=== PATIENT | male | born 1945 | race Caucasian/White ===

== ENCOUNTER 2016-06-13 09:35 | Inpatient (IN) | payer MEDICARE, OTHER ==
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
[2016-06-13] VITALS (19 sets, daily range): BP systolic 109–160; BP diastolic 68–89; PULSE 67–117; RESP 16–25; Ht 152.4 cm; Wt 84.0 kg
[~2016-06-13] VITALS: Ht 152.4 cm; Wt 84.0 kg
[~2016-06-13 09:35] MED LIST: ALBUMIN HUMAN 5% 250 ML INJ ONE
[2016-06-13] MEDS ORDERED: LACTATED RINGER'S 1,000 ML IV* ONE (10:30)
[2016-06-13] MEDS ORDERED: VANCOMYCIN 1 GM in NS 250 ML IVPB ONE (10:30)
[2016-06-13] MEDS ORDERED: LISI10TA2 PO (10:42)
[2016-06-13] MEDS ORDERED: MORP15TA92 PO (10:42)
[2016-06-13] MEDS ORDERED: LITH300T5 PO (10:42)
[2016-06-13] MEDS ORDERED: PROPOFOL 20 ML ONE ×2 (10:48→10:52)
[2016-06-13] MEDS ORDERED: ONDANSETRON 4 MG INJ ONE (10:49)
[2016-06-13] MEDS ORDERED: NEOSTIGMINE 3 MG/3 ML SYRINGE ONE (10:49)
[2016-06-13] MEDS ORDERED: CEFAZOLIN 1 GM INJ ONE (10:49)
[2016-06-13] MEDS ORDERED: GLYCOPYRROLATE 0.4 MG INJ ONE (10:49)
[2016-06-13] MEDS ORDERED: ROCURONIUM 50 MG INJ ONE (10:49)
[2016-06-13] MEDS ORDERED: MIDAZOLAM 1 MG/ML 2 ML INJ ONE (10:49)
[2016-06-13] MEDS ORDERED: DEXAMETHASONE 4 MG/ML 1 ML INJ ONE (10:49)
[2016-06-13] MEDS ORDERED: hydrALAzine 20 MG INJ ONE ×2 (10:57→13:30)
--- NOTE | 2016-06-13 11:48 | OPPN ---
DALTON CHRISTIAN 06/13/16 1148: Date/Time of Note Date/Time of Note DATE: 06/13/16 TIME: 11:42 Anesthesia Eval and Record Evaluation Age 70 Sex male NPO: 8 hrs Took Morphine with sips of water this morning Preoperative diagnosis Lumbar spine stenosis Planned procedure L2-5 decompression, Lumbar laminectomy Past Medical History Cardio: HTN Neuro: Other (Bipola raffective disorder) Musculoskeletal: Osteoarthritis (fingers and bones) Pulm: Smoking Hx (smokes marijuana daily. [place] [employer] 15 years ago ), Sleep Apnea ( states he stops breathing for about five seconds, no formal diagnosis ) Hepatic: Alcohol abuse (history sober for 29 years), Hepatitis (C treated three years ago ) GI: GERD Surgery & Anesthesia Issues Other issues (wakes up very combative after anesthesia ) Meds Anticoagulation: No Beta Mimi within 24 hr: No Reason Beta Mimi not given: Pt. not on B-Mimi Reported Medications Lisinopril* (Lisinopril*) 10 Mg Tablet, 10 MG PO DAILY, #30 TAB 06/13/16 Morphine Sulfate* (Ms Contin*) 15 Mg Tablet.sa, 45 MG PO Q8, TAB.SA 06/13/16 [place] Carbonate* ([place] Carbonate*) 300 Mg Tablet, 600 MG PO QHS, TAB 06/13/16 Allergies Coded Allergies: alfuzosin (Verified Allergy, Mild, 06/13/16) amitriptyline (Verified Allergy, Mild, 06/13/16) tamsulosin (Verified Allergy, Mild, 06/13/16) Penicillins (Verified Allergy, Unknown, 06/10/16) Sulfa (Sulfonamide Antibiotics) (Verified Allergy, Unknown, 06/10/16) ciprofloxacin (Verified Allergy, Unknown, 06/10/16) levofloxacin (Verified Allergy, Unknown, 06/10/16) tetanus immune globulin (Verified Allergy, Unknown, 06/10/16) tetanus toxoid, adsorbed (Verified Allergy, Unknown, 06/10/16) Labs/Studies Reviewed by anesthesiologist Test: N/A Studies: ECG (sinue rythmn hr 68), CXR (negative- ) Pre-procedure Exam Last vitals Vital Signs Date Time Temp Pulse Resp B/P Pulse Ox O2 Delivery O2 Flow Rate FiO2 06/13/16 10:48 98.5 67 18 147/85 98 Airway: Adequate mouth opening, Adequate thyromental dist Mallampati Score: Mallampati I Teeth: Abnormal (full upper denture and partial lower) Lung: Normal Heart: Normal ASA Physical Status ASA physical status: 3 Planned Anesthetic General/MAC: ETT Planned Pain Management Parenteral pain med Pre-operative Attestations Prior to commencing anesthesia and surgery, the patient was re-evaluated, there was verification of: *The patient's identity *The results of appropriate recent lab work and preoperative vital signs *The above evaluation not changing prior to induction *Anesthetic plan, risk benefits, alternative and complications discussed with patient/family; questions answered; patient/family understands, accepts and wishes to proceed. Bryant Mckeon M.D. 06/13/16 1358: Anesthesia Eval and Record Evaluation NPO: 8 hrs Meds Reported Medications Lisinopril* (Lisinopril*) 10 Mg Tablet, 10 MG PO DAILY, #30 TAB 06/13/16 Morphine Sulfate* (Ms Contin*) 15 Mg Tablet.sa, 45 MG PO Q8, TAB.SA 06/13/16 [place] Carbonate* ([place] Carbonate*) 300 Mg Tablet, 600 MG PO QHS, TAB 06/13/16 Allergies Coded Allergies: alfuzosin (Verified Allergy, Mild, 06/13/16) amitriptyline (Verified Allergy, Mild, 06/13/16) tamsulosin (Verified Allergy, Mild, 06/13/16) Penicillins (Verified Allergy, Unknown, 06/10/16) Sulfa (Sulfonamide Antibiotics) (Verified Allergy, Unknown, 06/10/16) ciprofloxacin (Verified Allergy, Unknown, 06/10/16) levofloxacin (Verified Allergy, Unknown, 06/10/16) tetanus immune globulin (Verified Allergy, Unknown, 06/10/16) tetanus toxoid, adsorbed (Verified Allergy, Unknown, 06/10/16) DALTON CHRISTIAN Jun 13, 2016 11:48 Bryant Mckeon M.D. Jun 13, 2016 13:58 tetanus toxoid, adsorbed (Verified Allergy, Unknown, 06/10/16) DALTON CHRISTIAN Jun 13, 2016 11:48 Bryant Mckeon M.D. Jun 13, 2016 13:58
[2016-06-13] MEDS ORDERED: GELATIN SIZE 100 SPONGE ONE (12:05)
[2016-06-13] MEDS ORDERED: BUPIVACAINE 0.25% (MPF) 10 ML 10 ML VIAL ONE (12:06)
[2016-06-13] MEDS ORDERED: THROMBIN 5000 UNIT VIAL ONE ×3 (12:06→14:42)
[2016-06-13] MEDS ORDERED: POLYMYXIN/BACITRACIN 1L IRRIG ONE (12:06)
--- NOTE | 2016-06-13 12:12 | HPN ---
Date/Time of Note Date/Time of Note DATE: 06/13/16 TIME: 12:11 Interval H&P Admission Note Pt. seen H&P reviewed: No system changes MARU DOE MD Jun 13, 2016 12:12
[2016-06-13] MEDS ORDERED: LABETALOL HCL 20MG INJ ONE (12:58)
--- NOTE | 2016-06-13 13:52 | RADRPT ---
PROCEDURE: XR Lumbar Spine one view. CLINICAL INDICATION: Low back pain. Intraoperative. TECHNIQUE: Prone portable cross-table lateral. COMPARISON: No prior studies are available for comparison. FINDINGS: For the purposes of this report, the last apparent true disc level is considered to be L5-S1. Based on this, the posterior needle markers are present at mid L1 level and lower L4 left. IMPRESSION: 1. Intraoperative imaging as described above. RPTAT: QQ .Homero Calzada MD, MD Date Time Electronically viewed and signed by .Homero Calzada MD, MD on 06/13/2016 13:51 .R/
--- NOTE | 2016-06-13 13:52 | RADRPT ---
PROCEDURE: XR Lumbar Spine one view. CLINICAL INDICATION: Low back pain. Intraoperative. TECHNIQUE: Prone portable cross-table lateral. COMPARISON: No prior studies are available for comparison. FINDINGS: For the purposes of this report, the last apparent true disc level is considered to be L5-S1. Based on this, the posterior surgical instruments are present at L2 spinous process level and upper L5 sp inous process level. IMPRESSION: 1. Intraoperative imaging as described above. RPTAT: QQ .Homero Calzada MD, Date Time Electronically viewed and signed by .Homero Calzada MD, on 06/13/2016 13:52 .R/
[2016-06-13] MEDS ORDERED: MIDAZOLAM 1 MG/ML 2 ML INJ IV PRN (14:00)
[2016-06-13] MEDS ORDERED: EPHEDrine SULFATE 50 MG/5 ML SYG IV PRN (14:00)
[2016-06-13] MEDS ORDERED: TRIMETHOBENZAMIDE 100 MG/ML VIAL IM PRN ×3 (14:00→17:30)
[2016-06-13] MEDS ORDERED: hydrALAzine 20 MG INJ IV PRN (14:00)
[2016-06-13] MEDS ORDERED: MEPERIDINE 25 MG INJ IV PRN (14:00)
[2016-06-13] MEDS ORDERED: HYDROmorphONE (0.2 MG/ML) 10ML SYG IV PRN ×3 (14:00)
[2016-06-13] MEDS ORDERED: FENTAnyl 50 MCG/ML VIAL IV PRN ×3 (14:00)
[2016-06-13] MEDS ORDERED: DIPHENHYDRAMINE 50 MG INJ IV PRN ×2 (14:00→17:30)
[2016-06-13] MEDS ORDERED: LABETALOL HCL 20MG INJ IV PRN (14:00)
[2016-06-13] MEDS ORDERED: ONDANSETRON 4 MG INJ IV PRN ×2 (14:00→17:30)
[2016-06-13] MEDS ORDERED: SURGIFOAM POWDER 1 GM KIT ONE (14:42)
[2016-06-13] MEDS ORDERED: DESMOPRESSIN 25 MCG in SOD CHLORIDE 0.9% 50 ML IV ONE (15:00)
--- NOTE | 2016-06-13 16:51 | OPR ---
Date/Time of Note Date/Time of Note DATE: 06/13/16 TIME: 16:46 Operative Report Preoperative Diagnosis Multilevel spinal stenosis from L1-L5 Postsurgical changes at L3 Herniated disc L2-3 on the left with extruded fragments above the disc level Possible discitis L2-3 Postoperative Diagnosis Same Operation Performed Redo decompressive laminectomy at L1 through L5 Microdiscectomy L2-3 on the left Multiple intraoperative wound cultures Revision of scar (20 cm) Lateral localizing lumbar radiographs (2) Intraoperative nerve monitoring (3 hours) Surgeon: MARU DOE MD assistant manager/embalmer: PATRICIA GALAVIZ MD Anesthesia: general Anesthesiologist: Bryant Mckeon M.D. Estimated Blood Loss: other Specimens Spinous processes of L1-L2 L4 and L5 Herniated disc L2-3 on the left Tubes/Drains 2 medium Hemovac drains employed Complications: None Pt Condition Post Procedure: stable Disposition: PACU Operative\Procedure Findings At surgery, there was diffuse and generalized bleeding resulting in a overall blood loss of 1500 cc. Multilevel severe spinal stenosis was evident with severe scarring at L3 the patient underwent previous surgery. MARU DOE MD Jun 13, 2016 16:51
[2016-06-13] MEDS ORDERED: DIAZEPAM 5 MG/ML SYG IM PRN (17:00)
[2016-06-13] MEDS ORDERED: DIPHENHYDRAMINE 50 MG CAP PO PRN (17:00)
[2016-06-13] MEDS ORDERED: ZOLPIDEM 5 MG TAB PO PRN ×2 (17:00→17:30)
[2016-06-13] MEDS ORDERED: ACETAMINOPHEN 325 MG TAB PO PRN (17:00)
[2016-06-13] MEDS ORDERED: NALOXONE (0.4 MG/ML) INJ IV PRN ×2 (17:00→17:30)
[2016-06-13] MEDS ORDERED: NACL 0.9% 3 ML SYG IV SCH (17:00)
[2016-06-13] MEDS ORDERED: DIAZEPAM 5 MG TAB PO PRN (17:00)
[2016-06-13] MEDS ORDERED: BETHANECHOL 25 MG TAB PO PRN (17:00)
[2016-06-13] MEDS ORDERED: PROCHLORPERAZINE 10 MG TAB PO PRN (17:00)
[2016-06-13] MEDS ORDERED: HYDROmorphONE 0.2 MG/ML PCA IV SCH (17:00)
[2016-06-13] MEDS ORDERED: HYDROCODONE/APAP (5/325) TAB PO PRN ×2 (17:00)
[2016-06-13] MEDS ORDERED: HYDROmorphONE 1 MG/ML SYG IV STA (17:01)
[2016-06-13 17:05] LABS: ADD UMIC YES; URINE BILIRUBIN (Dip) NEGATIVE (NEGATIVE); URINE BLOOD (Dip) 2+ (NEGATIVE); URINE COLOR LT. YELLOW (YELLOW); URINE GLUCOSE (Dip) NEGATIVE (NEGATIVE); URINE KETONES (Dip) NEGATIVE (NEGATIVE); URINE LEUKOCYTE ESTERASE (Dip) NEGATIVE (NEGATIVE); URINE NITRITE (Dip) NEGATIVE (NEGATIVE); URINE TOTAL PROTEIN (Dip) NEGATIVE (NEGATIVE); URINE UROBILINOGEN (Dip) 0.2 E.U./dL (0.1-1.0)
[2016-06-13 17:22] LABS: BACTERIA,URINE FEW
--- NOTE | 2016-06-13 17:28 | CONS ---
Date/Time of Note Date/Time of Note DATE: 06/13/16 TIME: 17:25 Assessment/Plan Assessment/Plan Problems: (1) Status post lumbar spine surgery for decompression of spinal cord Status: Acute Comment: Patient is immediately postop and doing relatively well. He is moving his lower extremities. He has multiple complaints including that he is thirsty. (2) Bipolar affective disorder Status: Chronic Comment: Noted are relatively stable continue his medications. Qualifiers: Active/Remission status: in partial remission Most recent bipolar episode type: hypomanic Qualified Code: F31.71 - Bipolar disorder, in partial remission, most recent episode hypomanic (3) Essential hypertension Status: Chronic Comment: Continue outpatient regimen Consultation Date/Type/Reason Admit Date/Time Jun 13, 2016 at 09:35 Initial Consult Date June 13, 2016 Type of Consultation: Internal medicine Reason for Consultation Postop assistance Referring Provider: MARU DOE MD 24 HR Interval Summary Free Text/Dictation Patient seen in the recovery room. He reports he feels thirsty. Constitutional: no complaints (Denies any fevers chills or sweats) Detailed Summary Eyes: no complaints Respiratory: no complaints (Denies any shortness of breath) Cardiovascular: no complaints (Denies chest pain) Gastrointestinal: no complaints Genitourinary: no complaints Exam/Review of Systems Vital Signs Vitals Vital Signs Date Time Temp Pulse Resp B/P Pulse Ox O2 Delivery O2 Flow Rate FiO2 06/13/16 16:59 92 18 138/84 97 Nasal Cannula 2.0 06/13/16 16:56 97.5 Exam Constitutional: alert, oriented (Oriented to person place and time) Neck: non-tender, supple Respiratory: clear to auscultation, normal air movement Cardiovascular: nl pulses, regular rate and rhythm Results Results 24 hrs Laboratory Tests Test 06/13/16 16:30 Urine Color LT. YELLOW Urine Clarity CLEAR Urine pH 6.5 Urine Specific [place] 1.010 Urine Ketones NEGATIVE Urine Nitrite NEGATIVE Urine Bilirubin NEGATIVE Urine Urobilinogen 0.2 E.U./dL Urine Leukocyte Esterase NEGATIVE Urine Microscopic RBC 10-25 Urine Microscopic WBC 0-2 Urine Epithelial Cells FEW Urine Bacteria FEW Urine Hemoglobin 2+ H Urine Glucose NEGATIVE Urine Total Protein NEGATIVE Medications Medications Current Medications Dextrose/Sodium Chloride (D5-1/2ns) 1,000 ml @ 100 mls/hr Q10H IV ; Start at 16:31 Acetaminophen/ Hydrocodone Bitart ([place] (5/325)) 1 tab Q4H PRN PO PAIN LEVEL 1 -5; Start 06/13/16 at 17:00 Acetaminophen/ Hydrocodone Bitart 2 tab 2 tab Q4H PRN PO PAIN LEVEL 6-10; Start 06/13/16 at 17:00 Vancomycin HCl (Vancocin) 250 ml @ 125 mls/hr Q12H IVPB ; Start 06/13/16 at 23: 00; Stop 06/14/16 at 12:59 Zolpidem Tartrate (Ambien) 5 mg HS PRN PO INSOMNIA; Start 06/13/16 at 17:00 Prochlorperazine (Compazine) 10 mg Q4H PRN PO NAUSEA AND/OR VOMITING; Start 06/13/16 at 17:00 Trimethobenzamide HCl (Tigan) 200 mg Q4H PRN IM NAUSEA AND/OR VOMITING; Start 06/13/16 at 17:00 Ondansetron HCl (Zofran Inj) 4 mg Q6H PRN IV NAUSEA AND/OR VOMITING; Start 06/13 at 17:00 Al Hydrox/Mg Hydrox/Simethicone (Mag-Al Plus) 15 ml Q4H PRN PO CONSTIPATION; Start 06/13/16 at 17:00 Docusate Sodium (Colace) 100 mg BID PO ; Start 06/14/16 at 09:00 Acetaminophen (Tylenol Tab) 650 mg Q4H PRN PO TEMP GREATER THAN 101F OR LYN; Start 06/13/16 at 17:00 Ascorbic Acid (Vitamin C) 1,000 mg BID PO ; Start 06/14/16 at 09:00 Ferrous Sulfate (Ferrous Sulfate (Ec)) 325 mg TID PO ; Start 06/14/16 at 09:00 Ranitidine HCl (Zantac) 150 mg BID PO ; Start 06/13/16 at 21:00 Diazepam (Valium) 5 mg Q4H PRN PO MUSCLE SPASMS; Start 06/13/16 at 17:00 Diazepam (Valium) 5 mg Q4H PRN IM MUSCLE SPASMS; Start 06/13/16 at 17:00 Phenol (Cepastat Lozenge) 1 lozenge PRN PRN MT SORE THROAT; Start 06/13/16 at 17 :00 Bethanechol Chloride (Urecholine) 25 mg PRN PRN PO UNABLE TO VOID; Start at 17:00 Diphenhydramine HCl (Benadryl) 50 mg Q6H PRN PO PRURITUS; Start 06/13/16 at 17: 00 Naloxone HCl (Narcan) 0.2 mg Q2M PRN IV RR 8 BREATHS/MIN OR LESS; Start at 17:00 Fentanyl (Sublimaze) 50 mcg ONCE ONCE IV Last administered on 06/13/16t 17:08; Admin Dose 50 MCG; Start 06/13/16 at 17:30; Stop 06/13/16 at 17:31 Lisinopril (Zestril) 10 mg DAILY PO ; Start 06/14/16 at 09:00; Status UNV [place] Carbonate ([place] Carbonate) 600 mg QHS PO ; Start 06/13/16 at 21:00; Status UNV Naloxone HCl (Narcan) 0.2 mg PRN PRN IV DECREASED REPIRATORY RATE; Start at 17:30; Status UNV Hydromorphone HCl (Dilaudid STOCK UNLOADER) Q4PCA IV ; Start 06/13/16 at 17:30; Status UNV Oxycodone/ Acetaminophen (Percocet (5/ 325)) 1 tab Q4H PRN PO PAIN LEVEL 1-5; Start 06/13/16 at 17:30; Status UNV Oxycodone/ Acetaminophen (Percocet (5/ 325)) 2 tab Q4H PRN PO PAIN LEVEL 6-10; Start 06/13/16 at 17:30; Status UNV Hydromorphone HCl (Dilaudid) 0.2 mg Q4H PRN IV PAIN LEVEL 1-5; Start 06/13/16 at 17:30; Status UNV Hydromorphone HCl (Dilaudid) 0.4 mg Q4H PRN IV PAIN LEVEL 6-10; Start 06/13/16 at 17:30; Status UNV Ondansetron HCl (Zofran Inj) 4 mg Q6H PRN IV NAUSEA AND/OR VOMITING; Start 06/13 at 17:30; Status UNV Trimethobenzamide HCl (Tigan) 200 mg Q8H PRN IM NAUSEA AND/OR VOMITING; Start 06/13/16 at 17:30; Status UNV Diphenhydramine HCl (Benadryl) 25 mg Q6H PRN IV ITCHING; Start 06/13/16 at 17:30 ; Status UNV Miscellaneous Information 1. Discontinue STOCK UNLOADER... STOCK UNLOADER IV ; Start 06/13/16 at 17:30 ; Status UNV Miscellaneous Information 1. Discontinue STOCK UNLOADER... STOCK UNLOADER IV ; Start 06/13/16 at 17:30 ; Status UNV TARAN WANG MD Jun 13, 2016 17:28
[2016-06-13] MEDS ORDERED: HYDROmorphONE 1 MG/ML SYG IV PRN ×2 (17:30)
[2016-06-13] MEDS ORDERED: FENTAnyl 50 MCG/ML VIAL IV ONE (17:30)
[2016-06-13] MEDS: HYDROmorphONE 0.2 MG/ML PCA IV SCH ×2 (17:35→22:48)
[2016-06-13] MEDS: DEXTROSE 5%-0.45% NACL 1,000 ML IV SCH (18:18)
--- NOTE | 2016-06-13 20:04 | OPR ---
DATE OF OPERATION: 06/13/2016 PREOPERATIVE DIAGNOSES: 1. Multilevel spinal stenosis (severe) from L1-L5. 2. Postsurgical changes at L3. 3. Herniated disk L2-3 on the left, with extruded fragments above the disk level. 4. Probable diskitis at L2. POSTOPERATIVE DIAGNOSES: 1. Multilevel spinal stenosis (severe) from L1-L5. 2. Post-surgical changes at L3. 3. Herniated disk L2-3 on the left, with extruded fragments above the disk level. 4. Probable diskitis at L2. OPERATION/PROCEDURES: 1. Redo decompressive laminectomy at L1, L2, L3, L4, and L5. 2. Microdiskectomy L2-3 on the left. 3. Multiple intraoperative cultures. 4. Revision of scar (20 cm). 5. Lateral localizing lumbar radiographs used (2). 6. Intraoperative nerve monitoring (3 hours). SURGEON: Eugenio Rader MD WASTEWATER SUPERINTENDENT: Patricia Cary MD ANESTHESIA: General endotracheal. ANESTHESIOLOGIST: Bryant Mckeon MD ESTIMATED BLOOD LOSS: 1500 mL Two units packed cells given COMPLICATIONS: None. DRAINS: Two medium Hemovac drains employed. PERTINENT HISTORY AND PHYSICAL: This is a 70-year-old male with severe back and lower-extremity complaints, left greater than right, which have been refractory to conservative management. He underwent lumbar surgery in [place] several months ago, but has had severe pain in his back and lower extremities since that time. His postoperative workup including MRI of the lumbar spine demonstrated multilevel severe spinal stenosis and suspected diskitis of the L2- 3 disk. There was also an extruded disk herniation at L2-3 on the left, with extruded disk material below the level of disk space. Treatment options were discussed with the patient, who elected to proceed with surgery. OPERATIVE FINDINGS: At surgery, there was multilevel severe spinal stenosis from L1-L5. There were dense scar at L3 and a herniation of the L2-3 disk on the left, with extruded fragments above the disk level. Although no sharla pus was identified, there was some granulation tissue that was suspicious for infection, and multiple cultures were sent. OPERATIVE PROCEDURE: With the patient in supine position, after satisfactory induction of general endotracheal anesthesia by Dr. Mckeon, the patient was turned to the prone kneeling position on the [place] frame. All pressure points were carefully padded. Back was prepped and draped in usual sterile fashion. Athrombic pumps were applied to the legs below the knees to prevent venous stasis during and after procedure. An indwelling Mahajan catheter was also placed preoperatively to facilitate bladder drainage during and after the procedure. Two spinal needles were placed next to what was felt to be the spinous process of L1 and L5, and lateral roentgenogram was taken, which confirmed anatomic localization. A 20 cm incision was then carried midline from L1 to the sacrum, through skin and subcutaneous tissue to the deep fascia. Superficial retractors were placed and hemostasis secured with electrocautery. Throughout the procedure, copious amounts of antibacterial irrigating solution were used to periodically irrigate the wound. From the beginning of the incision, it was noted that the patient had diffuse oozing from both soft tissues and bone, which necessitated the blood transfusion discussed above. The fascia was incised in midline with a hot knife, and a bilateral subperiosteal dissection carried out from L1-L5. Deep retractors were placed and deep hemostasis secured with electrocautery. A second intraoperative radiograph was taken with Andrew clamps placed with what was felt to be the spinous process of L2 and L5. This was confirmed with a second x -ray. Redo decompressive laminectomy at L5, L4, L3, L2, and L1 was then carried out using a Chiquis right-angle bone rongeur, Leksell rongeur, Kerrison punches, and curettes. Ligamentum flavum was excised with sharp dissection at those levels where it existed. The operating microscope was then moved into place. A medial facetectomy and foraminotomy was accomplished using small hand osteo mallet, Kerrison punches, and curettes. Attention was then turned to the L2-3 level on the left, where the L3 root was mobilized medially and protected with Roxy'Rasheeda nerve root retractor. A 15 blade knife used to cut a rectangular window in the annulus and posterior longitudinal ligament, and multiple degenerative disk fragments were harvested along with those fragments which had migrated superiorly above the level of disk space behind the body of L2. A thorough search of the floor of the canal was made with an arthroscopic probe. No additional fragments were encountered. The epidural hemostasis was secured with bipolar electrocautery on a low setting. The anesthesiologist was asked to perform a Valsalva maneuver at 40 mmHg and no spinal fluid leak was noted. The wound was copiously irrigated with antibacterial irrigating solution and then closed over 2 medium Hemovac drains; 1 below the fascia, 1 above the fascia using #1 Vicryl Stratafix sutures on the deep paralumbar musculature and deep fascia of back, 2-0 Vicryl Stratafix sutures on the subcutaneous tissue, and a 4-0 Vicryl subcuticular cosmetic closing suture on the skin. Dermabond and sterile compressive dressings were applied. Patient having tolerated the procedure well, was then turned to supine position onto his bed and extubated by Dr. Mckeon. He was transported to the recovery room in satisfactory condition. At the conclusion of the procedure, sponge, instrument, and needle counts were all correct. NEED FOR SIFTER OPERATOR: During this spinal surgical procedure, my religious assistant was used to retract and protect the spinal nerves and dural sac. My religious assistant also employed the suction catheters to evacuate blood from the surgical field to improve visualization of the neural structures. The religious assistant was medically necessary to facilitate the completion of the surgery in a safe and expeditious manner. State of [place] regulations, as well as hospital bylaws, preclude the use of non-licensed health care personnel such as operating room technicians, to perform these functions. Throughout the procedure, neural monitoring was carried out by [email or web address] including EMG, SSEP, and MEP monitoring of the L2, L3, L4, L5, and S1 nerve roots bilaterally, along with spinal cord potentials. These were interpreted by a neurologist employed by [employer]. Dictated By: EUGENIO RADER MD TM/NTS Conf#: [id number] DID#: [id number] CC: PATRICIA CARY MD; TARAN WANG MD;*EndCC* MTDD
[2016-06-13] MEDS: ONDANSETRON 4 MG INJ IV PRN (20:56)
[2016-06-13] MEDS ORDERED: LITHIUM CARBONATE 300 MG CAP PO SCH (21:00)
[2016-06-13] MEDS: CEPASTAT LOZENGE MT PRN (21:03)
[2016-06-13] MEDS: RANITIDINE 150 MG TAB PO SCH (21:03)
[2016-06-13] MEDS: LAMOTRIGINE 25 MG TAB PO SCH (21:26)
[2016-06-13] MEDS: VANCOMYCIN 1 GM (PMX) 250 ML IVPB SCH (22:28)
[2016-06-13] MEDS: LITHIUM CARBONATE 300 MG PO SCH (22:28)
[2016-06-14] VITALS: BP 134/79; RESP 16
[2016-06-14] MEDS: HYDROmorphONE 0.2 MG/ML PCA IV SCH (01:59)
[2016-06-14 05:35] LABS: HEMATOCRIT 27.7 % (42.0-52.0); HEMOGLOBIN 9.1 g/dl (14.0-18.0)
[2016-06-14 06:01] LABS: POTASSIUM 3.6 mmol/L (3.5-5.1)
[2016-06-14 06:03] LABS: CREATININE 0.92 mg/dl (0.61-1.24)
[2016-06-14 06:04] LABS: CALCIUM 8.6 mg/dl (8.4-10.2)
[2016-06-14 06:23] VITALS: BP 166/81; PULSE 96
[2016-06-14] MEDS: DEXTROSE 5%-0.45% NACL 1,000 ML IV SCH ×3 (06:24→21:13)
[2016-06-14] MEDS: LISINOPRIL 10 MG TAB PO SCH ×3 (06:32→09:58)
--- NOTE | 2016-06-14 07:18 | PN ---
Date/Time of Note Date/Time of Note DATE: 06/14/16 TIME: :17 Assessment/Plan Lines/Catheters IV Catheter Type (from Nrs): Peripheral IV Mahajan in Place (from Nrs): Yes Subjective 24 Hr Interval Summary The patient is postop day #1 following multilevel decompressive lumbar laminectomy from L1-L5. He is afebrile. His morning lab work is normal with exception of a mild postoperative anemia. I will check his blood work tomorrow. He will be mobilized with physical therapy as tolerated. His Hemovac had 350 cc since surgery. Neurovascular structures are intact distally. Exam/Review of Systems Vital Signs Vitals Vital Signs Date Time Temp Pulse Resp B/P Pulse Ox O2 Delivery O2 Flow Rate FiO2 06/14/16 06:23 97.3 96 166/81 95 Room Air 06/14/16 05:23 18 06/13/16 18:45 2.0 Intake and Output 06/13/16 06/13/16 06/14/16 15:00 23:00 07:00 Intake Total 2000 ml 750 ml 2750 ml Output Total 2950 ml 1800 ml Balance 2000 ml -2200 ml 950 ml Results Result Diagram: 06/14/16 0449 06/14/16 0449 MARU DOE MD Jun 14, 2016 07:18
[2016-06-14 07:57] VITALS: BP 164/76; RESP 18
[2016-06-14] MEDS ORDERED: BETHANECHOL 25 MG TAB PO PRN (08:00)
[2016-06-14] MEDS: RANITIDINE 150 MG TAB PO SCH ×2 (09:58→20:56)
[2016-06-14] MEDS: DOCUSATE SODIUM 100 MG CAP PO SCH ×2 (09:58→20:53)
[2016-06-14] MEDS: FERROUS SULFATE (EC) 325 MG TAB PO SCH ×3 (09:58→20:53)
[2016-06-14] MEDS: ASCORBIC ACID 500 MG TAB PO SCH ×2 (09:58→21:00)
[2016-06-14] MEDS ORDERED: morphine (ER) 15 MG TAB PO SCH ×2 (10:00→21:00)
[2016-06-14] MEDS: morphine (ER) 15 MG TAB PO SCH ×2 (10:00→10:01)
[2016-06-14 10:48] LABS: ADD UMIC YES; URINE BILIRUBIN (Dip) NEGATIVE (NEGATIVE); URINE BLOOD (Dip) 1+ (NEGATIVE); URINE COLOR LT. YELLOW (YELLOW); URINE GLUCOSE (Dip) NEGATIVE (NEGATIVE); URINE KETONES (Dip) NEGATIVE (NEGATIVE); URINE LEUKOCYTE ESTERASE (Dip) TRACE (NEGATIVE); URINE NITRITE (Dip) NEGATIVE (NEGATIVE); URINE TOTAL PROTEIN (Dip) NEGATIVE (NEGATIVE); URINE UROBILINOGEN (Dip) 0.2 E.U./dL (0.1-1.0)
[2016-06-14] MEDS: VANCOMYCIN 1 GM (PMX) 250 ML IVPB SCH (10:48)
[2016-06-14 11:34] LABS: BACTERIA,URINE RARE; URINE RBCS 0-2 /HPF (0)
--- NOTE | 2016-06-14 17:48 | PN ---
Date/Time of Note Date/Time of Note DATE: 06/14/16 TIME: 17:45 Assessment/Plan VTE Prophylaxis VTE Prophylaxis Intervention: SCD's Lines/Catheters IV [facility]from [facility] Saline Lock Urinary Cath still in place: Yes Reason Cath still needed: urinary retention Assessment/Plan Problems: (1) Discitis of lumbar region Status: Chronic Comment: Dr. Schmidt's operative note reports there is a possible discitis at L2. Multiple cultures were taken. I am going to go ahead and get blood cultures and continue the vancomycin that he had been on pending further details. Given the patient's fever nausea and vomiting will have to keep a close eye on this. (2) Status post lumbar spine surgery for decompression of spinal cord Status: Acute Comment: Postoperatively he appears to be doing relatively well although again I am concerned about an infection based on the dictation of Dr. Rader. (3) Bipolar affective disorder Status: Chronic Comment: He is on medication for this Qualifiers: Active/Remission status: in partial remission Most recent bipolar episode type: hypomanic Qualified Code: F31.71 - Bipolar disorder, in partial remission, most recent episode hypomanic (4) Essential hypertension Status: Chronic Comment: Adequate control Subjective 24 Hr Interval Summary Free Text/Dictation Patient reports he does not feel well has some diffuse nausea without emesis. He has a low-grade fever he reports he feels a little bit short of breath and has a runny nose Eyes: no complaints Cardiovascular: no complaints Genitourinary: no complaints Exam/Review of Systems Vital Signs Vitals Vital Signs Date Time Temp Pulse Resp B/P Pulse Ox O2 Delivery O2 Flow Rate FiO2 06/14/16 15:56 99.5 06/14/16 07:57 94 18 164/76 96 06/14/16 06:23 Room Air 06/13/16 18:45 2.0 Intake and Output 06/13/16 06/13/16 06/14/16 15:00 23:00 07:00 Intake Total 2000 ml 750 ml 2750 ml Output Total 2950 ml 1800 ml Balance 2000 ml -2200 ml 950 ml Exam Constitutional: alert, oriented Neck: non-tender, supple Respiratory: clear to auscultation, normal air movement Cardiovascular: nl pulses, regular rate and rhythm Results Result Diagram: 06/14/16 0449 06/14/16 0449 Results 24 hrs Laboratory Tests Test 06/14/16 04:49 06/14/16 10:05 Hemoglobin 9.1 L Hematocrit 27.7 L Sodium Level 135 Potassium Level 3.6 Chloride Level 104 Carbon Dioxide Level 21 Anion Gap 14 Blood Urea Nitrogen 13 Creatinine 0.92 Glucose Level 177 Calcium Level 8.6 Urine Color LT. YELLOW Urine Clarity CLEAR Urine pH 6.0 Urine Specific [place] 1.010 Urine Ketones NEGATIVE Urine Nitrite NEGATIVE Urine Bilirubin NEGATIVE Urine Urobilinogen 0.2 E.U./dL Urine Leukocyte Esterase TRACE H Urine Microscopic RBC 0-2 Urine Microscopic WBC 0-2 Urine Bacteria RARE Urine Hemoglobin 1+ H Urine Glucose NEGATIVE Urine Total Protein NEGATIVE Medications Medications Current Medications Dextrose/Sodium Chloride (D5-1/2ns) 1,000 ml @ 100 mls/hr Q10H IV Last administered on 06/14/16 06:24; Admin Dose 100 MLS/HR; Start 06/13/16 at 16:31 Acetaminophen/ Hydrocodone Bitart ([place] (5/325)) 1 tab Q4H PRN PO PAIN LEVEL 1 -5; Start 06/13/16 at 17:00 Acetaminophen/ Hydrocodone Bitart ([place] (5/325)) 2 tab Q4H PRN PO PAIN LEVEL 6 -10; Start 06/13/16 at 17:00 Zolpidem Tartrate (Ambien) 5 mg HS PRN PO INSOMNIA; Start 06/13/16 at 17:00 Prochlorperazine (Compazine) 10 mg Q4H PRN PO NAUSEA AND/OR VOMITING; Start 06/13/16 at 17:00 Trimethobenzamide HCl (Tigan) 200 mg Q4H PRN IM NAUSEA AND/OR VOMITING; Start 06/13/16 at 17:00 Ondansetron HCl (Zofran Inj) 4 mg Q6H PRN IV NAUSEA AND/OR VOMITING Last administered on 06/13/16 20:56; Admin Dose 4 MG; Start 06/13/16 at 17:00 Al Hydrox/Mg Hydrox/Simethicone (Mag-Al Plus) 15 ml Q4H PRN PO CONSTIPATION; Start 06/13/16 at 17:00 Docusate Sodium (Colace) 100 mg BID PO Last administered on 06/14/16 09:58; Admin Dose 100 MG; Start 06/14/16 at 09:00 Acetaminophen (Tylenol Tab) 650 mg Q4H PRN PO TEMP GREATER THAN 101F OR LYN; Start 06/13/16 at 17:00 Ascorbic Acid (Vitamin C) 1,000 mg BID PO Last administered on 06/14/16 09:58; Admin Dose 1,000 MG; Start 06/14/16 at 09:00 Ferrous Sulfate (Ferrous Sulfate (Ec)) 325 mg TID PO Last administered on 09:58; Admin Dose 325 MG; Start 06/14/16 at 09:00 Ranitidine HCl (Zantac) 150 mg BID PO Last administered on 06/14/16 09:58; Admin Dose 150 MG; Start 06/13/16 at 21:00 Diazepam (Valium) 5 mg Q4H PRN PO MUSCLE SPASMS; Start 06/13/16 at 17:00 Diazepam (Valium) 5 mg Q4H PRN IM MUSCLE SPASMS; Start 06/13/16 at 17:00 Phenol (Cepastat Lozenge) 1 lozenge PRN PRN MT SORE THROAT Last administered on 06/13/16 21:03; Admin Dose 1 LOZENGE; Start 06/13/16 at 17:00 Bethanechol Chloride (Urecholine) 25 mg PRN PRN PO UNABLE TO VOID Last administered on 06/14/16 09:58; Admin Dose 25 MG; Start 06/13/16 at 17:00 Diphenhydramine HCl (Benadryl) 50 mg Q6H PRN PO PRURITUS; Start 06/13/16 at 17: 00 Naloxone HCl (Narcan) 0.2 mg Q2M PRN IV RR 8 BREATHS/MIN OR LESS; Start at 17:00 Naloxone HCl (Narcan) 0.2 mg PRN PRN IV DECREASED REPIRATORY RATE; Start at 17:30 Hydromorphone HCl (Dilaudid AGRICULTURAL APPRAISER) Q4PCA IV Last administered on 06/14/16 01:59 ; Admin Dose 6 MG; Start 06/13/16 at 17:30 Oxycodone/ Acetaminophen (Percocet (5/ 325)) 1 tab Q4H PRN PO PAIN LEVEL 1-5; Start 06/13/16 at 17:30 Oxycodone/ Acetaminophen (Percocet (5/ 325)) 2 tab Q4H PRN PO PAIN LEVEL 6-10; Start 06/13/16 at 17:30 Hydromorphone HCl (Dilaudid) 0.2 mg Q4H PRN IV PAIN LEVEL 1-5; Start 06/13/16 at 17:30 Hydromorphone HCl (Dilaudid) 0.4 mg Q4H PRN IV PAIN LEVEL 6-10; Start 06/13/16 at 17:30 Ondansetron HCl (Zofran Inj) 4 mg Q6H PRN IV NAUSEA AND/OR VOMITING; Start 06/13 at 17:30 Trimethobenzamide HCl (Tigan) 200 mg Q8H PRN IM NAUSEA AND/OR VOMITING; Start 06/13/16 at 17:30 Diphenhydramine HCl (Benadryl) 25 mg Q6H PRN IV ITCHING; Start 06/13/16 at 17:30 Miscellaneous Information 1. Discontinue AGRICULTURAL APPRAISER... AGRICULTURAL APPRAISER IV ; Start 06/13/16 at 17:30 Miscellaneous Information 1. Discontinue AGRICULTURAL APPRAISER... AGRICULTURAL APPRAISER IV ; Start 06/13/16 at 17:30 Lamotrigine (Lamictal) 25 mg QHS PO Last administered on 06/13/16 21:26; Admin Dose 25 MG; Start 06/13/16 at 21:00 Patient Own Medication 2 ea QHS PO Last administered on 06/13/16 22:28; Admin Dose 2 EA; Start 06/13/16 at 22:10 Patient Own Medication 1 ea BID PO ; Start 06/14/16 at 21:00 Patient Own Medication 1 ea 0630 PO ; Start 06/15/16 at 06:30 TARAN WANG MD Jun 14, 2016 17:47
[2016-06-14] MEDS ORDERED: VANCOMYCIN IV PER PHARMACY XX SCH (18:00)
[2016-06-14] MEDS: ONDANSETRON 4 MG INJ IV PRN (19:43)
[2016-06-14 20:20] VITALS: BP 155/72; PULSE 90; RESP 18
[2016-06-14] MEDS: LITHIUM CARBONATE 300 MG PO SCH (20:52)
[2016-06-14] MEDS: LAMOTRIGINE 25 MG TAB PO SCH (20:55)
[2016-06-14] MEDS: MORPHINE SULFATE 15 MG PO SCH (21:08)
[2016-06-14] MEDS: VANCOMYCIN 750 MG in SOD CHLORIDE 0.9% 150 ML IVPB SCH (22:37)
--- NOTE | 2016-06-15 00:57 | RADRPT ---
PROCEDURE: XR Chest. CLINICAL INDICATION: Fever. TECHNIQUE: Single frontal view of the chest was obtained COMPARISON: None FINDINGS: Cardiomegaly and atherosclerotic calcifications in the thoracic aorta. Bilateral dependent atelecta sis with pulmonary vascular congestion. There is no pleural effusion or pneumothorax. IMPRESSION: Pulmonary vascular ingestion and bilateral dependent atelectasis. RPTAT: [facility] Physician Oneil Date Time Electronically viewed and signed by Amy Lockwood Physician on 06/15/2016 00:57 RS/
[2016-06-15] MEDS: LISINOPRIL 10MG PO SCH ×2 (06:06→09:05)
--- NOTE | 2016-06-15 07:00 | PN ---
Date/Time of Note Date/Time of Note DATE: 06/15/16 TIME: 06:59 Assessment/Plan Lines/Catheters IV Catheter Type (from Nrsg): Saline Lock Mahajan in Place (from Nrsg): Yes Subjective 24 Hr Interval Summary The patient is postop day #2 following a multilevel redo decompressive laminectomy from L1-L5. His Hemovac had 20 cc out this morning and was removed. His incision is clean and dry and redressed. He has refused a.m. labs and his vancomycin. He was advised regarding the risks of doing so. He now consents to the antibiotic and the morning labs. Neurovascular structures are intact distally. He has a low-grade temperature (100.1) last night. He is complaining of polyuria. I will order a urine culture and urinalysis. He has made slow progress with physical therapy. Exam/Review of Systems Vital Signs Vitals Vital Signs Date Time Temp Pulse Resp B/P Pulse Ox O2 Delivery O2 Flow Rate FiO2 06/14/16 20:20 100.1 90 18 155/72 98 Room Air 06/13/16 18:45 2.0 Intake and Output 06/14/16 06/14/16 06/15/16 15:00 23:00 07:00 Intake Total 900 ml Output Total 150 ml 820 ml Balance -150 ml 80 ml Results Result Diagram: 06/14/16 0449 06/14/16 0449 MARU DOE MD Jun 15, 2016 07:00
[2016-06-15] MEDS: VANCOMYCIN 750 MG in SOD CHLORIDE 0.9% 150 ML IVPB SCH ×2 (07:49→20:38)
[2016-06-15 08:12] VITALS: BP 155/76; RESP 18
[2016-06-15 08:28] LABS: ADD SCAN DIFF NO
[2016-06-15] MEDS: MORPHINE SULFATE 15 MG PO SCH (08:28)
[2016-06-15] MEDS: DEXTROSE 5%-0.45% NACL 1,000 ML IV SCH ×2 (08:31→17:14)
[2016-06-15 08:41] LABS: ABNORMAL IP MESSAGE 1; BASOPHILS % 0.1 % (0.0-2.0); EOSINOPHILS % 0.1 % (0.0-7.0); HEMATOCRIT 25.7 % (42.0-52.0); HEMOGLOBIN 8.3 g/dl (14.0-18.0); LYMPHOCYTES # 1.5 10^3/ul (0.8-2.9); LYMPHOCYTES % 9.8 % (15.0-51.0); MEAN CORPUSCULAR HEMOGLOBIN 30.7 pg (29.0-33.0); MEAN CORPUSCULAR HGB CONC 32.3 g/dl (32.0-37.0); MEAN CORPUSCULAR VOLUME 95.2 fl (82.0-101.0); MEAN PLATELET VOLUME 11.3 fl (7.4-10.4); MONOCYTES % 12.6 % (0.0-11.0); NEUTROPHIL # 11.9 10^3/ul (1.6-7.5); NEUTROPHILS % 76.8 % (39.0-77.0); PLATELET COUNT 142 10^3/UL (140-415); RED CELL DISTRIBUTION WIDTH 15.8 % (11.5-14.5); WHITE BLOOD COUNT 15.5 10^3/ul (4.8-10.8)
[2016-06-15 08:54] LABS: ALBUMIN 3.1 g/dl (3.3-4.9); POTASSIUM 3.3 mmol/L (3.5-5.1)
[2016-06-15 08:56] LABS: CREATININE 0.89 mg/dl (0.61-1.24)
[2016-06-15 08:57] LABS: ALBUMIN/GLOBULIN RATIO 1.14; BILIRUBIN,INDIRECT 0.6 mg/dl (0-1.1); BILIRUBIN,TOTAL 0.6 mg/dl (0.2-1.3); CALCIUM 8.8 mg/dl (8.4-10.2); TOTAL PROTEIN 5.8 g/dl (6.1-8.1)
[2016-06-15] MEDS: DOCUSATE SODIUM 100 MG CAP PO SCH ×2 (09:02→20:54)
[2016-06-15] MEDS: ASCORBIC ACID 500 MG TAB PO SCH ×2 (09:02→20:54)
[2016-06-15] MEDS: RANITIDINE 150 MG TAB PO SCH ×2 (09:02→20:54)
[2016-06-15] MEDS: FERROUS SULFATE (EC) 325 MG TAB PO SCH ×3 (09:02→20:54)
[2016-06-15] MEDS: OXYCODONE/ACETAMINOPHEN (5/325) TAB PO PRN ×3 (09:11→18:48)
[2016-06-15] MEDS ORDERED: POTASSIUM CHLORIDE (SR) 20 MEQ TAB PO STA (09:32)
--- NOTE | 2016-06-15 12:56 | PN ---
Date/Time of Note Date/Time of Note DATE: 06/15/16 TIME: 12:53 Assessment/Plan VTE Prophylaxis VTE Prophylaxis Intervention: SCD's Lines/Catheters IV [facility]from [facility]): Saline Lock Urinary Cath still in place: Yes Reason Cath still needed: urinary retention Assessment/Plan Problems: (1) Postoperative anemia due to acute blood loss Status: Acute Comment: Surgery feels that it is possible this may represent something more than just postoperative blood loss. Will check his GI tract to make sure he does not have any evidence of hemolysis. Continue to follow (2) Discitis of lumbar region Status: Chronic Comment: Changes in the history he gave me I am concerned he actually has had a chronic smoldering infection. I am going to have an infectious disease consult speak to us. Please note this gentleman has had prior spinal infections before treated with long-term vancomycin in the remote past (3) Bipolar affective disorder Status: Chronic Comment: He is on treatment Qualifiers: Active/Remission status: in partial remission Most recent bipolar episode type: hypomanic Qualified Code: F31.71 - Bipolar disorder, in partial remission, most recent episode hypomanic (4) Essential hypertension Status: Chronic Comment: Adequately controlled (5) Status post lumbar spine surgery for decompression of spinal cord Status: Acute Comment: He is recuperating starting physical therapy. We will have to make arrangements for long-term outpatient care Subjective 24 Hr Interval Summary Free Text/Dictation Patient reports he is feeling much better today. He now amends the history he gave me in the office and states that he been having low-grade fevers for over a month before coming into the hospital. Cardiovascular: no complaints Gastrointestinal: nausea (Nausea stopped), no complaints Exam/Review of Systems Vital Signs Vitals Vital Signs Date Time Temp Pulse Resp B/P Pulse Ox O2 Delivery O2 Flow Rate FiO2 06/15/16 08:12 99.5 89 18 155/76 96 06/14/16 20:20 Room Air 06/13/16 18:45 2.0 Intake and Output 06/14/16 06/14/16 06/15/16 15:00 23:00 07:00 Intake Total 900 ml Output Total 150 ml 820 ml Balance -150 ml 80 ml Exam Constitutional: alert, oriented Respiratory: clear to auscultation, normal air movement Cardiovascular: nl pulses, regular rate and rhythm Gastrointestinal: nl liver, spleen, non-tender, soft Results Result Diagram: 06/15/16 0747 06/15/16 0747 Results 24 hrs Laboratory Tests Test 06/15/16 07:47 White Blood Count 15.5 H Red Blood Count 2.70 L Hemoglobin 8.3 L Hematocrit 25.7 L Mean Corpuscular Volume 95.2 Mean Corpuscular Hemoglobin 30.7 Mean Corpuscular Hemoglobin Concent 32.3 Red Cell Distribution Width 15.8 H Platelet Count 142 Mean Platelet Volume 11.3 H Neutrophils % 76.8 Lymphocytes % 9.8 L Monocytes % 12.6 H Eosinophils % 0.1 Basophils % 0.1 Nucleated Red Blood Cells % 0.0 Neutrophils # 11.9 H Lymphocytes # 1.5 Monocytes # 2.0 H Eosinophils # 0.0 Basophils # 0.0 Nucleated Red Blood Cells # 0.0 Erythrocyte Sedimentation Rate 40 H Sodium Level 132 L Potassium Level 3.3 L Chloride Level 107 Carbon Dioxide Level 22 Anion Gap 6 #L Blood Urea Nitrogen 7 Creatinine 0.89 Glucose Level 147 Calcium Level 8.8 Total Bilirubin 0.6 Direct Bilirubin 0.00 Indirect Bilirubin 0.6 Aspartate Amino Transf (AST/SGOT) 26 Alanine Aminotransferase (ALT/SGPT) 25 Alkaline Phosphatase 78 Total Protein 5.8 L Albumin 3.1 L Globulin 2.70 Albumin/Globulin Ratio 1.14 Medications Medications Current Medications Dextrose/Sodium Chloride (D5-1/2ns) 1,000 ml @ 100 mls/hr Q10H IV Last administered on 06/14/16 06:24; Admin Dose 100 MLS/HR; Start 06/13/16 at 16:31 Acetaminophen/ Hydrocodone Bitart ([place] (5/325)) 1 tab Q4H PRN PO PAIN LEVEL 1 -5; Start 06/13/16 at 17:00 Acetaminophen/ Hydrocodone Bitart ([place] (5/325)) 2 tab Q4H PRN PO PAIN LEVEL 6 -10; Start 06/13/16 at 17:00 Prochlorperazine (Compazine) 10 mg Q4H PRN PO NAUSEA AND/OR VOMITING; Start 06/13/16 at 17:00 Ondansetron HCl (Zofran Inj) 4 mg Q6H PRN IV NAUSEA AND/OR VOMITING Last administered on 06/14/16 19:43; Admin Dose 4 MG; Start 06/13/16 at 17:00 Al Hydrox/Mg Hydrox/Simethicone (Mag-Al Plus) 15 ml Q4H PRN PO CONSTIPATION; Start 06/13/16 at 17:00 Docusate Sodium (Colace) 100 mg BID PO Last administered on 06/15/16 09:02; Admin Dose 100 MG; Start 06/14/16 at 09:00 Acetaminophen (Tylenol Tab) 650 mg Q4H PRN PO TEMP GREATER THAN 101F OR LYN Last administered on 06/14/16 20:55; Admin Dose 650 MG; Start 06/13/16 at 17:00 Ascorbic Acid (Vitamin C) 1,000 mg BID PO Last administered on 06/15/16 09:02; Admin Dose 1,000 MG; Start 06/14/16 at 09:00 Ferrous Sulfate (Ferrous Sulfate (Ec)) 325 mg TID PO Last administered on 09:02; Admin Dose 325 MG; Start 06/14/16 at 09:00 Ranitidine HCl (Zantac) 150 mg BID PO Last administered on 06/15/16 09:02; Admin Dose 150 MG; Start 06/13/16 at 21:00 Diazepam (Valium) 5 mg Q4H PRN PO MUSCLE SPASMS; Start 06/13/16 at 17:00 Diazepam (Valium) 5 mg Q4H PRN IM MUSCLE SPASMS; Start 06/13/16 at 17:00 Phenol (Cepastat Lozenge) 1 lozenge PRN PRN MT SORE THROAT Last administered on 06/13/16 21:03; Admin Dose 1 LOZENGE; Start 06/13/16 at 17:00 Bethanechol Chloride (Urecholine) 25 mg PRN PRN PO UNABLE TO VOID Last administered on 06/14/16 09:58; Admin Dose 25 MG; Start 06/13/16 at 17:00 Diphenhydramine HCl (Benadryl) 50 mg Q6H PRN PO PRURITUS; Start 06/13/16 at 17: 00 Naloxone HCl (Narcan) 0.2 mg Q2M PRN IV RR 8 BREATHS/MIN OR LESS; Start at 17:00 Naloxone HCl (Narcan) 0.2 mg PRN PRN IV DECREASED REPIRATORY RATE; Start at 17:30 Hydromorphone HCl (Dilaudid [employer]OR) Q4PCA IV Last administered on 06/14/16 01:59 ; Admin Dose 6 MG; Start 06/13/16 at 17:30 Oxycodone/ Acetaminophen (Percocet (5/ 325)) 1 tab Q4H PRN PO PAIN LEVEL 1-5 Last administered on 06/15/16 09:52; Admin Dose 1 TAB; Start 06/13/16 at 17:30 Oxycodone/ Acetaminophen (Percocet (5/ 325)) 2 tab Q4H PRN PO PAIN LEVEL 6-10; Start 06/13/16 at 17:30 Hydromorphone HCl (Dilaudid) 0.2 mg Q4H PRN IV PAIN LEVEL 1-5; Start 06/13/16 at 17:30 Hydromorphone HCl (Dilaudid) 0.4 mg Q4H PRN IV PAIN LEVEL 6-10; Start 06/13/16 at 17:30 Ondansetron HCl (Zofran Inj) 4 mg Q6H PRN IV NAUSEA AND/OR VOMITING; Start 06/13 at 17:30 Trimethobenzamide HCl (Tigan) 200 mg Q8H PRN IM NAUSEA AND/OR VOMITING; Start 06/13/16 at 17:30 Diphenhydramine HCl (Benadryl) 25 mg Q6H PRN IV ITCHING; Start 06/13/16 at 17:30 Miscellaneous Information 1. Discontinue C[employer]OM SUPERVISOR... [employer]OM SUPERVISOR IV ; Start 06/13/16 at 17:30 Miscellaneous Information 1. Discontinue C[employer] ROOM SUPERVISOR... C[employer] ROOM SUPERVISOR IV ; Start 06/13/16 at 17:30 Lamotrigine (Lamictal) 25 mg QHS PO Last administered on 06/14/16 20:55; Admin Dose 25 MG; Start 06/13/16 at 21:00 Patient Own Medication 2 ea QHS PO Last administered on 06/14/16 20:52; Admin Dose 2 EA; Start 06/13/16 at 22:10 Patient Own Medication 1 ea BID PO Last administered on 06/15/16 08:28; Admin Dose 1 EA; Start 06/14/16 at 21:00 Patient Own Medication 1 ea 1 ea 0630 PO Last administered on 06/15/16 09:05; Admin Dose 1 EA; Start 06/15/16 at 06:30 Vancomycin HCl/ Sodium Chloride (Vancocin/NS) 150 ml @ 75 mls/hr Q12H IVPB ; Start 06/15/16 at 20:00 TARAN WANG MD Jun 15, 2016 12:56
[2016-06-15 17:00] LABS: ADD UMIC NO; URINE BILIRUBIN (Dip) NEGATIVE (NEGATIVE); URINE BLOOD (Dip) NEGATIVE (NEGATIVE); URINE COLOR LT. YELLOW (YELLOW); URINE GLUCOSE (Dip) NEGATIVE (NEGATIVE); URINE KETONES (Dip) NEGATIVE (NEGATIVE); URINE LEUKOCYTE ESTERASE (Dip) NEGATIVE (NEGATIVE); URINE NITRITE (Dip) NEGATIVE (NEGATIVE); URINE TOTAL PROTEIN (Dip) NEGATIVE (NEGATIVE); URINE UROBILINOGEN (Dip) 0.2 E.U./dL (0.1-1.0)
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
[2016-06-15 20:03] VITALS: BP 147/67; RESP 20
[2016-06-15] MEDS: LITHIUM CARBONATE 300 MG PO SCH (20:53)
[2016-06-15] MEDS: LAMOTRIGINE 25 MG TAB PO SCH (20:54)
[2016-06-15] MEDS: ONDANSETRON 4 MG INJ IV PRN (22:20)
[2016-06-16] MEDS: MORPHINE SULFATE 15 MG PO SCH ×3 (00:10→20:36)
[2016-06-16] MEDS: DEXTROSE 5%-0.45% NACL 1,000 ML IV SCH ×2 (04:31→14:31)
[2016-06-16 06:45] VITALS: BP 150/78; PULSE 80; RESP 16
[2016-06-16] MEDS: LISINOPRIL 10MG PO SCH (06:47)
[2016-06-16] MEDS: OXYCODONE/ACETAMINOPHEN (5/325) TAB PO PRN ×3 (07:02→20:36)
[2016-06-16] MEDS: ONDANSETRON 4 MG INJ IV PRN ×3 (07:03→21:07)
--- NOTE | 2016-06-16 07:12 | PN ---
Date/Time of Note Date/Time of Note DATE: 06/16/16 TIME: 07:10 Assessment/Plan Lines/Catheters IV Catheter Type (from Nrs): Saline Lock Mahajan in Place (from Nrs): Yes Subjective 24 Hr Interval Summary The patient is postop day #3 following a multilevel redo decompressive laminectomy from L1-L5. He is resting comfortably. His wound cultures and blood cultures have been negative thus far. His Gram stain was negative. Yesterday's hemoglobin was 8.3, and today's blood work is not yet available. I spoke with Dr. Romero regarding my concerns about his postop anemia. An anemia workup is in progress. Neurovascular structures are intact distally. He has made slow progress with physical therapy thus far. Exam/Review of Systems Vital Signs Vitals Vital Signs Date Time Temp Pulse Resp B/P Pulse Ox O2 Delivery O2 Flow Rate FiO2 06/16/16 06:45 80 16 150/78 06/16/16 00:00 98.5 06/15/16 20:03 98 06/14/16 20:20 Room Air 06/13/16 18:45 2.0 Intake and Output 06/15/16 06/15/16 06/16/16 15:00 23:00 07:00 Intake Total 300 ml 1000 ml Output Total 1950 ml Balance 300 ml -950 ml Results Result Diagram: 06/15/16 0747 06/15/16 0747 MARU DOE MD Jun 16, 2016 07:12
[2016-06-16 08:14] LABS: ADD SCAN DIFF NO
[2016-06-16 08:18] LABS: ABNORMAL IP MESSAGE 1; BASOPHILS % 0.1 % (0.0-2.0); EOSINOPHILS # 0.1 10^3/ul (0.0-0.5); EOSINOPHILS % 0.6 % (0.0-7.0); HEMATOCRIT 24.7 % (42.0-52.0); HEMOGLOBIN 8.3 g/dl (14.0-18.0); LYMPHOCYTES # 2.2 10^3/ul (0.8-2.9); LYMPHOCYTES % 13.8 % (15.0-51.0); MEAN CORPUSCULAR HEMOGLOBIN 32.3 pg (29.0-33.0); MEAN CORPUSCULAR HGB CONC 33.6 g/dl (32.0-37.0); MEAN CORPUSCULAR VOLUME 96.1 fl (82.0-101.0); MEAN PLATELET VOLUME 10.5 fl (7.4-10.4); MONOCYTE # 1.7 10^3/ul (0.3-0.9); MONOCYTES % 10.6 % (0.0-11.0); NEUTROPHIL # 11.6 10^3/ul (1.6-7.5); NEUTROPHILS % 74.2 % (39.0-77.0); PLATELET COUNT 162 10^3/UL (140-415); RED BLOOD COUNT 2.57 10^6/ul (4.70-6.10); RED CELL DISTRIBUTION WIDTH 15.5 % (11.5-14.5); WHITE BLOOD COUNT 15.6 10^3/ul (4.8-10.8)
[2016-06-16 08:27] VITALS: BP 141/65; RESP 18
[2016-06-16 08:38] LABS: CALCIUM 8.8 mg/dl (8.4-10.2); CREATININE 0.98 mg/dl (0.61-1.24); POTASSIUM 3.3 mmol/L (3.5-5.1)
[2016-06-16] MEDS ORDERED: POTASSIUM CHLORIDE (SR) 20 MEQ TAB PO STA (08:43)
--- NOTE | 2016-06-16 08:51 | PN ---
Date/Time of Note Date/Time of Note DATE: 06/16/16 TIME: 08:49 Assessment/Plan VTE Prophylaxis VTE Prophylaxis Intervention: SCD's Lines/Catheters IV Catheter Type (from [facility]): Saline Lock Urinary Cath still in place: Yes Reason Cath still needed: urinary retention Assessment/Plan Problems: (1) Essential hypertension Status: Chronic Comment: His blood pressure is well controlled. (2) Bipolar affective disorder Status: Chronic Comment: Remains on medications. Mental status stabilizing nicely Qualifiers: Active/Remission status: in partial remission Most recent bipolar episode type: hypomanic Qualified Code: F31.71 - Bipolar disorder, in partial remission, most recent episode hypomanic (3) Discitis of lumbar region Status: Chronic Comment: Infectious disease consult has been ordered. He is on antibiotics at this time. Cultures obtained at the time of surgery are negative to date (4) Postoperative anemia due to acute blood loss Status: Acute Comment: His hemoglobin is stable I will not transfuse for this. There is no evidence of active bleeding haptoglobin is pending (5) Status post lumbar spine surgery for decompression of spinal cord Status: Acute Comment: He is progressing nicely. At this time we should entertain the concept of discontinuing the Mahajan catheter as he is ambulating to the bathroom Subjective 24 Hr Interval Summary Free Text/Dictation Patient reports he is feeling better today. Denies any fevers chills or sweats. Constitutional: no complaints Respiratory: no complaints Cardiovascular: no complaints Gastrointestinal: no complaints Exam/Review of Systems Vital Signs Vitals Vital Signs Date Time Temp Pulse Resp B/P Pulse Ox O2 Delivery O2 Flow Rate FiO2 06/16/16 08:27 98.0 100 18 141/65 100 06/14/16 20:20 Room Air 06/13/16 18:45 2.0 Intake and Output 06/15/16 06/15/16 06/16/16 15:00 23:00 07:00 Intake Total 300 ml 1000 ml Output Total 1950 ml Balance 300 ml -950 ml Exam Constitutional: alert, oriented Respiratory: clear to auscultation, normal air movement Cardiovascular: nl pulses, regular rate and rhythm Gastrointestinal: nl liver, spleen, non-tender, soft Results Result Diagram: 06/16/16 0735 06/16/16 0735 Results 24 hrs Laboratory Tests Test 06/15/16 16:30 06/16/16 07:35 Urine Color LT. YELLOW Urine Clarity CLEAR Urine pH 7.5 Urine Specific [place] <=1.005 L Urine Ketones NEGATIVE Urine Nitrite NEGATIVE Urine Bilirubin NEGATIVE Urine Urobilinogen 0.2 E.U./dL Urine Leukocyte Esterase NEGATIVE Urine Hemoglobin NEGATIVE Urine Glucose NEGATIVE Urine Total Protein NEGATIVE White Blood Count 15.6 H Red Blood Count 2.57 L Hemoglobin 8.3 L Hematocrit 24.7 L Mean Corpuscular Volume 96.1 Mean Corpuscular Hemoglobin 32.3 Mean Corpuscular Hemoglobin Concent 33.6 Red Cell Distribution Width 15.5 H Platelet Count 162 Mean Platelet Volume 10.5 H Neutrophils % 74.2 Lymphocytes % 13.8 L Monocytes % 10.6 Eosinophils % 0.6 Basophils % 0.1 Nucleated Red Blood Cells % 0.0 Neutrophils # 11.6 H Lymphocytes # 2.2 Monocytes # 1.7 H Eosinophils # 0.1 Basophils # 0.0 Nucleated Red Blood Cells # 0.0 Sodium Level 135 Potassium Level 3.3 L Chloride Level 109 Carbon Dioxide Level 22 Anion Gap 7 L Blood Urea Nitrogen 9 Creatinine 0.98 Glucose Level 139 Calcium Level 8.8 Medications Medications Current Medications Dextrose/Sodium Chloride (D5-1/2ns) 1,000 ml @ 100 mls/hr Q10H IV Last administered on 06/14/16 06:24; Admin Dose 100 MLS/HR; Start 06/13/16 at 16:31 Acetaminophen/ Hydrocodone Bitart ([place] (5/325)) 1 tab Q4H PRN PO PAIN LEVEL 1 -5; Start 06/13/16 at 17:00 Acetaminophen/ Hydrocodone Bitart ([place] (5/325)) 2 tab Q4H PRN PO PAIN LEVEL 6 -10; Start 06/13/16 at 17:00 Prochlorperazine (Compazine) 10 mg Q4H PRN PO NAUSEA AND/OR VOMITING; Start 06/13/16 at 17:00 Ondansetron HCl (Zofran Inj) 4 mg Q6H PRN IV NAUSEA AND/OR VOMITING Last administered on 06/16/16 07:03; Admin Dose 4 MG; Start 06/13/16 at 17:00 Al Hydrox/Mg Hydrox/Simethicone (Mag-Al Plus) 15 ml Q4H PRN PO CONSTIPATION; Start 06/13/16 at 17:00 Docusate Sodium (Colace) 100 mg BID PO Last administered on 06/15/16 20:54; Admin Dose 100 MG; Start 06/14/16 at 09:00 Acetaminophen (Tylenol Tab) 650 mg Q4H PRN PO TEMP GREATER THAN 101F OR LYN Last administered on 06/14/16 20:55; Admin Dose 650 MG; Start 06/13/16 at 17:00 Ascorbic Acid (Vitamin C) 1,000 mg BID PO Last administered on 06/15/16 20:54; Admin Dose 1,000 MG; Start 06/14/16 at 09:00 Ferrous Sulfate (Ferrous Sulfate (Ec)) 325 mg TID PO Last administered on 20:54; Admin Dose 325 MG; Start 06/14/16 at 09:00 Ranitidine HCl (Zantac) 150 mg BID PO Last administered on 06/15/16 20:54; Admin Dose 150 MG; Start 06/13/16 at 21:00 Diazepam (Valium) 5 mg Q4H PRN PO MUSCLE SPASMS; Start 06/13/16 at 17:00 Diazepam (Valium) 5 mg Q4H PRN IM MUSCLE SPASMS; Start 06/13/16 at 17:00 Phenol (Cepastat Lozenge) 1 lozenge PRN PRN MT SORE THROAT Last administered on 06/13/16 21:03; Admin Dose 1 LOZENGE; Start 06/13/16 at 17:00 Bethanechol Chloride (Urecholine) 25 mg PRN PRN PO UNABLE TO VOID Last administered on 06/14/16 09:58; Admin Dose 25 MG; Start 06/13/16 at 17:00 Diphenhydramine HCl (Benadryl) 50 mg Q6H PRN PO PRURITUS; Start 06/13/16 at 17: 00 Naloxone HCl (Narcan) 0.2 mg Q2M PRN IV RR 8 BREATHS/MIN OR LESS; Start at 17:00 Naloxone HCl (Narcan) 0.2 mg PRN PRN IV DECREASED REPIRATORY RATE; Start at 17:30 Hydromorphone HCl (Dilaudid DATA INTEGRITY CONSULTANT) Q4PCA IV Last administered on 06/14/16 01:59 ; Admin Dose 6 MG; Start 06/13/16 at 17:30 Oxycodone/ Acetaminophen (Percocet (5/ 325)) 1 tab Q4H PRN PO PAIN LEVEL 1-5 Last administered on 06/16/16 07:02; Admin Dose 1 TAB; Start 06/13/16 at 17:30 Oxycodone/ Acetaminophen (Percocet (5/ 325)) 2 tab Q4H PRN PO PAIN LEVEL 6-10 Last administered on 06/15/16 18:48; Admin Dose 2 TAB; Start 06/13/16 at 17:30 Hydromorphone HCl (Dilaudid) 0.2 mg Q4H PRN IV PAIN LEVEL 1-5; Start 06/13/16 at 17:30 Hydromorphone HCl (Dilaudid) 0.4 mg Q4H PRN IV PAIN LEVEL 6-10; Start 06/13/16 at 17:30 Ondansetron HCl (Zofran Inj) 4 mg Q6H PRN IV NAUSEA AND/OR VOMITING; Start 06/13 at 17:30 Trimethobenzamide HCl (Tigan) 200 mg Q8H PRN IM NAUSEA AND/OR VOMITING; Start 06/13/16 at 17:30 Diphenhydramine HCl (Benadryl) 25 mg Q6H PRN IV ITCHING; Start 06/13/16 at 17:30 Miscellaneous Information 1. Discontinue DATA INTEGRITY CONSULTANT... DATA INTEGRITY CONSULTANT IV ; Start 06/13/16 at 17:30 Miscellaneous Information 1. Discontinue DATA INTEGRITY CONSULTANT... DATA INTEGRITY CONSULTANT IV ; Start 06/13/16 at 17:30 Lamotrigine (Lamictal) 25 mg QHS PO Last administered on 06/15/16 20:54; Admin Dose 25 MG; Start 06/13/16 at 21:00 Patient Own Medication 2 ea QHS PO Last administered on 06/15/16 20:53; Admin Dose 2 EA; Start 06/13/16 at 22:10 Patient Own Medication 1 ea BID PO Last administered on 06/16/16 00:10; Admin Dose 1 EA; Start 06/14/16 at 21:00 Patient Own Medication 1 ea 1 ea 0630 PO Last administered on 06/16/16 06:47; Admin Dose 1 EA; Start 06/15/16 at 06:30 Vancomycin HCl/ Sodium Chloride (Vancocin/NS) 150 ml @ 75 mls/hr Q12H IVPB Last administered on 06/15/16t 20:38; Admin Dose 75 MLS/HR; Start 06/15/16 at 20: 00 TARAN WANG MD Jun 16, 2016 08:51
[2016-06-16] MEDS: FERROUS SULFATE (EC) 325 MG TAB PO SCH ×3 (09:00→21:00)
[2016-06-16] MEDS: RANITIDINE 150 MG TAB PO SCH ×2 (09:33→21:00)
[2016-06-16] MEDS: ASCORBIC ACID 500 MG TAB PO SCH ×2 (09:33→21:00)
[2016-06-16] MEDS: DOCUSATE SODIUM 100 MG CAP PO SCH ×2 (09:35→21:07)
[2016-06-16] MEDS: VANCOMYCIN 750 MG in SOD CHLORIDE 0.9% 150 ML IVPB SCH (09:43)
[2016-06-16] MEDS: AL HYDROX/MG HYDROX/SIMETH 30 ML CUP PO PRN (14:56)
--- NOTE | 2016-06-16 15:10 | PN ---
DATE: 06/16/2016 SUBJECTIVE: The patient is alert, sitting comfortably in bed. Complaining of bilateral buttock and leg pain. He is in no distress, no fevers. LABORATORY DATA: WBC 15.6, no shift, no bands. BUN 9, creatinine 0.98. MICROBIOLOGY: Cultures have been negative. ANTIMICROBIALS: The patient is on vancomycin. ALLERGIES: 1. PENICILLIN. 2. SULFA 3. CIPRO. PHYSICAL EXAMINATION: GENERAL: Well-developed elderly man who is alert, in no distress. HEENT: Head atraumatic, normocephalic. Sclerae anicteric. Buccal mucosa pink. NECK: Supple. CHEST: Rise symmetrical. Breath sounds with scattered crackles to bases. HEART: S1, S2. ABDOMEN: Soft, bowel sounds present. EXTREMITIES: Without cyanosis or edema. SKIN: Back dressing clean, dry and intact. ASSESSMENT: 1. ?Spinal diskitis, status post decompressive laminectomy at L1 through L5 levels with microdiskectomy. 2. Bilateral atelectasis. 3. Bipolar disorder. 4. History of hepatitis C virus. 5. Hypertension. PLAN: The patient remains stable. Pending pathology report. Final cultures so far have been negative. Continue on current antimicrobials. Dictated By: EDITH MCCOY MARINE MAMMAL TRAINER for CANDACE MESSINA/LUCIO Conf#: [id number] DID#: [id number] MTDD
--- NOTE | 2016-06-16 16:02 | RADRPT ---
PROCEDURE: US Lower extremity Venous. CLINICAL INDICATION: Bilateral lower extremity swelling , leg pain TECHNIQUE: Multiple sonographic images of the bilateral lower extremity deep venous system was obt ained utilizing grayscale, color-flow, compressive sonography and doppler imaging with augmentation. The images were reviewed on a PACS workstation. COMPARISON: None. FINDINGS: There is normal compressibility and flow within the bilateral common femoral, superficial femoral , posterior tibial and popliteal veins. RPTAT: AA IMPRESSION: No sonographic evidence for deep venous thrombosis. .Eyad Pike MD, MD Date Time Electronically viewed and signed by .Eyad Pike MD, MD on 06/16/2016 16:02 .S/
[2016-06-16] MEDS ORDERED: VANCOMYCIN 1 GM in NS 250 ML IVPB SCH (20:00)
[2016-06-16] MEDS: LAMOTRIGINE 25 MG TAB PO SCH (21:00)
[2016-06-16] MEDS: LITHIUM CARBONATE 300 MG PO SCH (21:05)
[2016-06-16 21:10] VITALS: BP 155/82; PULSE 91; RESP 18
[2016-06-16] MEDS: CEPASTAT LOZENGE MT PRN (23:48)
[2016-06-17] MEDS: OXYCODONE/ACETAMINOPHEN (5/325) TAB PO PRN ×7 (00:32→21:49)
[2016-06-17 05:40] LABS: ADD SCAN DIFF NO
[2016-06-17] MEDS: AL HYDROX/MG HYDROX/SIMETH 30 ML CUP PO PRN (05:45)
[2016-06-17 05:52] LABS: BASOPHILS % 0.2 % (0.0-2.0); EOSINOPHILS # 0.3 10^3/ul (0.0-0.5); EOSINOPHILS % 2.6 % (0.0-7.0); HEMATOCRIT 24.3 % (42.0-52.0); HEMOGLOBIN 7.9 g/dl (14.0-18.0); LYMPHOCYTES # 2.3 10^3/ul (0.8-2.9); LYMPHOCYTES % 18.6 % (15.0-51.0); MEAN CORPUSCULAR HEMOGLOBIN 31.5 pg (29.0-33.0); MEAN CORPUSCULAR HGB CONC 32.5 g/dl (32.0-37.0); MEAN CORPUSCULAR VOLUME 96.8 fl (82.0-101.0); MEAN PLATELET VOLUME 10.6 fl (7.4-10.4); MONOCYTE # 1.1 10^3/ul (0.3-0.9); MONOCYTES % 8.5 % (0.0-11.0); NEUTROPHIL # 8.7 10^3/ul (1.6-7.5); NEUTROPHILS % 69.4 % (39.0-77.0); PLATELET COUNT 174 10^3/UL (140-415); RED BLOOD COUNT 2.51 10^6/ul (4.70-6.10); RED CELL DISTRIBUTION WIDTH 15.3 % (11.5-14.5); WHITE BLOOD COUNT 12.5 10^3/ul (4.8-10.8)
[2016-06-17] MEDS: LISINOPRIL 10 MG TAB PO SCH (05:59)
[2016-06-17 06:06] VITALS: BP 142/75; PULSE 78; RESP 18
[2016-06-17 06:24] LABS: POTASSIUM 3.6 mmol/L (3.5-5.1)
[2016-06-17 06:27] LABS: CREATININE 1.12 mg/dl (0.61-1.24)
[2016-06-17] MEDS ORDERED: NA PHOSPHATE/BIPHOS 133 ML ENEMA PR ONE (07:00)
--- NOTE | 2016-06-17 07:02 | PN ---
Date/Time of Note Date/Time of Note DATE: 06/17/16 TIME: 06:59 Assessment/Plan Lines/Catheters IV Catheter Type (from Nrsg): Saline Lock Mahajan in Place (from Nrsg): No Subjective 24 Hr Interval Summary The patient is postop day #4 following a multilevel decompressive laminectomy from L1-L5. He is currently on vancomycin under the direction of Dr. Mikhail Cavazos for suspected discitis. He has not moved his bowels in 5 days. He has been having polyuria as well as nausea and vomiting. Neurovascular structures are intact distally. He attempted an MRI of the lumbar spine last night but was unable to tolerate the supine position. He has an elevated white blood cell count as well as a markedly elevated sed rate. I will speak with Dr. Reid this morning regarding his antibiotic regimen in light of the negative wound cultures. I have ordered a fleets enema to address his constipation. If he is still unable to ambulate, we will attempt to reschedule the lumbar MRI scan with sedation. Exam/Review of Systems Vital Signs Vitals Vital Signs Date Time Temp Pulse Resp B/P Pulse Ox O2 Delivery O2 Flow Rate FiO2 06/17/16 06:06 98.3 78 18 142/75 96 06/14/16 20:20 Room Air 06/13/16 18:45 2.0 Intake and Output 06/16/16 06/16/16 06/17/16 15:00 23:00 07:00 Intake Total 1550 ml 1850 ml Output Total 2600 ml 2100 ml Balance -1050 ml -250 ml Results Result Diagram: 06/16/16 0735 06/17/16 0445 MARU DOE MD Jun 17, 2016 07:02
[2016-06-17 08:38] VITALS: BP 157/76; RESP 18
[2016-06-17] MEDS: FERROUS SULFATE (EC) 325 MG TAB PO SCH ×3 (09:00→21:00)
[2016-06-17] MEDS: MORPHINE SULFATE 15 MG PO SCH ×2 (09:04→20:44)
[2016-06-17] MEDS: DOCUSATE SODIUM 100 MG CAP PO SCH ×2 (09:16→21:29)
[2016-06-17] MEDS: RANITIDINE 150 MG TAB PO SCH ×2 (09:16→21:30)
[2016-06-17] MEDS: ASCORBIC ACID 500 MG TAB PO SCH ×2 (09:16→21:30)
--- NOTE | 2016-06-17 14:58 | CONS ---
Date/Time of Note Date/Time of Note DATE: 06/17/16 TIME: 14:56 Assessment/Plan Assessment/Plan Chief Complaint/Hosp Course SUBJECTIVE: The patient is alert, in no distress, no fevers, PT at bedside. MICROBIOLOGY: Cultures have been negative. ANTIMICROBIALS: s/p vancomycin. ALLERGIES: 1. PENICILLIN. 2. SULFA 3. CIPRO. PHYSICAL EXAMINATION: GENERAL: Well-developed elderly man who is alert, in no distress. HEENT: Head atraumatic, normocephalic. Sclerae anicteric. Buccal mucosa pink. NECK: Supple. CHEST: Rise symmetrical. Breath sounds with scattered crackles to bases. HEART: S1, S2. ABDOMEN: Soft, bowel sounds present. EXTREMITIES: Without cyanosis or edema. SKIN: Back dressing clean, dry and intact. ASSESSMENT: 1. Status post decompressive laminectomy at L1 through L5 levels with microdiskectomy==> cx neg, no discitis. 2. Bilateral atelectasis. 3. Bipolar disorder. 4. History of hepatitis C virus. 5. Hypertension. PLAN: The patient remains stable. Off abx. Continue PT, ortho rec-s DW Dr Reid Problems: Consultation Date/Type/Reason Admit Date/Time Jun 13, 2016 at 09:35 Initial Consult Date Type of Consultation: ID Referring Provider: MARU DOE MD Exam/Review of Systems Vital Signs Vitals Vital Signs Date Time Temp Pulse Resp B/P Pulse Ox O2 Delivery O2 Flow Rate FiO2 06/17/16 08:38 98.0 78 18 157/76 95 06/14/16 20:20 Room Air 06/13/16 18:45 2.0 Intake and Output 06/16/16 06/16/16 06/17/16 15:00 23:00 07:00 Intake Total 1550 ml 1850 ml Output Total 2600 ml 2100 ml Balance -1050 ml -250 ml Results Result Diagram: 06/17/16 0445 06/17/16 0445 Results 24 hrs Laboratory Tests Test 06/16/16 19:12 06/17/16 04:45 Vancomycin Level Trough 8.5 L White Blood Count 12.5 H Red Blood Count 2.51 L Hemoglobin 7.9 L Hematocrit 24.3 L Mean Corpuscular Volume 96.8 Mean Corpuscular Hemoglobin 31.5 Mean Corpuscular Hemoglobin Concent 32.5 Red Cell Distribution Width 15.3 H Platelet Count 174 Mean Platelet Volume 10.6 H Neutrophils % 69.4 Lymphocytes % 18.6 Monocytes % 8.5 Eosinophils % 2.6 Basophils % 0.2 Nucleated Red Blood Cells % 0.0 Neutrophils # 8.7 H Lymphocytes # 2.3 Monocytes # 1.1 H Eosinophils # 0.3 Basophils # 0.0 Nucleated Red Blood Cells # 0.0 Erythrocyte Sedimentation Rate 68 H Sodium Level 136 Potassium Level 3.6 Chloride Level 106 Carbon Dioxide Level 23 Anion Gap 11 Blood Urea Nitrogen 11 Creatinine 1.12 Glucose Level 137 Calcium Level 9.0 Medications Medications Current Medications Acetaminophen/ Hydrocodone Bitart ([place] (5/325)) 1 tab Q4H PRN PO PAIN LEVEL 1 -5; Start 06/13/16 at 17:00 Acetaminophen/ Hydrocodone Bitart ([place] (5/325)) 2 tab Q4H PRN PO PAIN LEVEL 6 -10; Start 06/13/16 at 17:00 Prochlorperazine (Compazine) 10 mg Q4H PRN PO NAUSEA AND/OR VOMITING; Start 06/13/16 at 17:00 Ondansetron HCl (Zofran Inj) 4 mg Q6H PRN IV NAUSEA AND/OR VOMITING Last administered on 06/16/16 21:07; Admin Dose 4 MG; Start 06/13/16 at 17:00 Al Hydrox/Mg Hydrox/Simethicone (Mag-Al Plus) 15 ml Q4H PRN PO CONSTIPATION Last administered on 06/17/16 05:45; Admin Dose 15 ML; Start 06/13/16 at 17:00 Docusate Sodium (Colace) 100 mg BID PO Last administered on 06/17/16 09:16; Admin Dose 100 MG; Start 06/14/16 at 09:00 Acetaminophen (Tylenol Tab) 650 mg Q4H PRN PO TEMP GREATER THAN 101F OR LYN Last administered on 06/14/16 20:55; Admin Dose 650 MG; Start 06/13/16 at 17:00 Ascorbic Acid (Vitamin C) 1,000 mg BID PO Last administered on 06/17/16 09:16; Admin Dose 1,000 MG; Start 06/14/16 at 09:00 Ferrous Sulfate (Ferrous Sulfate (Ec)) 325 mg TID PO Last administered on 20:54; Admin Dose 325 MG; Start 06/14/16 at 09:00 Ranitidine HCl (Zantac) 150 mg BID PO Last administered on 06/17/16 09:16; Admin Dose 150 MG; Start 06/13/16 at 21:00 Diazepam (Valium) 5 mg Q4H PRN PO MUSCLE SPASMS Last administered on 06/16/16 23:48; Admin Dose 5 MG; Start 06/13/16 at 17:00 Diazepam (Valium) 5 mg Q4H PRN IM MUSCLE SPASMS; Start 06/13/16 at 17:00 Phenol (Cepastat Lozenge) 1 lozenge PRN PRN MT SORE THROAT Last administered on 06/16/16 23:48; Admin Dose 1 LOZENGE; Start 06/13/16 at 17:00 Bethanechol Chloride (Urecholine) 25 mg PRN PRN PO UNABLE TO VOID Last administered on 06/14/16 09:58; Admin Dose 25 MG; Start 06/13/16 at 17:00 Diphenhydramine HCl (Benadryl) 50 mg Q6H PRN PO PRURITUS; Start 06/13/16 at 17: 00 Naloxone HCl (Narcan) 0.2 mg Q2M PRN IV RR 8 BREATHS/MIN OR LESS; Start at 17:00 Naloxone HCl (Narcan) 0.2 mg PRN PRN IV DECREASED REPIRATORY RATE; Start at 17:30 Hydromorphone HCl (Dilaudid SOFTWARE LICENSING ANALYST) Q4PCA IV Last administered on 06/14/16 01:59 ; Admin Dose 6 MG; Start 06/13/16 at 17:30 Oxycodone/ Acetaminophen (Percocet (5/ 325)) 1 tab Q4H PRN PO PAIN LEVEL 1-5 Last administered on 06/17/16 08:02; Admin Dose 1 TAB; Start 06/13/16 at 17:30 Oxycodone/ Acetaminophen (Percocet (5/ 325)) 2 tab Q4H PRN PO PAIN LEVEL 6-10 Last administered on 06/17/16 14:12; Admin Dose 2 TAB; Start 06/13/16 at 17:30 Hydromorphone HCl (Dilaudid) 0.2 mg Q4H PRN IV PAIN LEVEL 1-5; Start 06/13/16 at 17:30 Hydromorphone HCl (Dilaudid) 0.4 mg Q4H PRN IV PAIN LEVEL 6-10 Last administered on 06/17/16 05:59; Admin Dose 0.4 MG; Start 06/13/16 at 17:30 Ondansetron HCl (Zofran Inj) 4 mg Q6H PRN IV NAUSEA AND/OR VOMITING; Start 06/13 at 17:30 Trimethobenzamide HCl (Tigan) 200 mg Q8H PRN IM NAUSEA AND/OR VOMITING; Start 06/13/16 at 17:30 Diphenhydramine HCl (Benadryl) 25 mg Q6H PRN IV ITCHING; Start 06/13/16 at 17:30 Miscellaneous Information 1. Discontinue SOFTWARE LICENSING ANALYST... SOFTWARE LICENSING ANALYST IV ; Start 06/13/16 at 17:30 Miscellaneous Information 1. Discontinue SOFTWARE LICENSING ANALYST... SOFTWARE LICENSING ANALYST IV ; Start 06/13/16 at 17:30 Lamotrigine (Lamictal) 25 mg QHS PO Last administered on 06/15/16 20:54; Admin Dose 25 MG; Start 06/13/16 at 21:00 Patient Own Medication 2 ea QHS PO Last administered on 06/16/16 21:05; Admin Dose 2 EA; Start 06/13/16 at 22:10 Patient Own Medication 1 ea BID PO Last administered on 06/17/16 09:04; Admin Dose 1 EA; Start 06/14/16 at 21:00 Lisinopril (Zestril) 10 mg 0630 PO Last administered on 06/17/16 05:59; Admin Dose 10 MG; Start 06/17/16 at 06:30 EDITH MCCOY NP Jun 17, 2016 14:58
--- NOTE | 2016-06-17 16:28 | PN ---
Date/Time of Note Date/Time of Note DATE: 06/17/16 TIME: 16:26 Assessment/Plan VTE Prophylaxis VTE Prophylaxis Intervention: other Lines/Catheters [facility] Saline Lock Urinary Cath still in place: No Assessment/Plan Problems: (1) Status post lumbar spine surgery for decompression of spinal cord Status: Acute Comment: Patient is stable. Apparently the pathology report is not consistent with infectious discitis which is great news. Infectious diseases remove the patient from IV antibiotic therapy and make plans for discharge planning. Pain management prescriptions are as per Dr. Rader (2) Essential hypertension Status: Chronic Comment: Adequate control Subjective 24 Hr Interval Summary Constitutional: no complaints (No fevers chills or sweats) Respiratory: no complaints (No shortness of breath) Cardiovascular: no complaints Gastrointestinal: no complaints Exam/Review of Systems Vital Signs Vitals Vital Signs Date Time Temp Pulse Resp B/P Pulse Ox O2 Delivery O2 Flow Rate FiO2 06/17/16 08:38 98.0 78 18 157/76 95 06/14/16 20:20 Room Air 06/13/16 18:45 2.0 Intake and Output 06/16/16 06/16/16 06/17/16 15:00 23:00 07:00 Intake Total 1550 ml 1850 ml Output Total 2600 ml 2100 ml Balance -1050 ml -250 ml Exam Constitutional: alert, oriented Respiratory: clear to auscultation, normal air movement Cardiovascular: nl pulses, regular rate and rhythm Gastrointestinal: nl liver, spleen, non-tender, soft Results Result Diagram: 06/17/16 0445 06/17/16 0445 Results 24 hrs Laboratory Tests Test 06/16/16 19:12 06/17/16 04:45 Vancomycin Level Trough 8.5 L White Blood Count 12.5 H Red Blood Count 2.51 L Hemoglobin 7.9 L Hematocrit 24.3 L Mean Corpuscular Volume 96.8 Mean Corpuscular Hemoglobin 31.5 Mean Corpuscular Hemoglobin Concent 32.5 Red Cell Distribution Width 15.3 H Platelet Count 174 Mean Platelet Volume 10.6 H Neutrophils % 69.4 Lymphocytes % 18.6 Monocytes % 8.5 Eosinophils % 2.6 Basophils % 0.2 Nucleated Red Blood Cells % 0.0 Neutrophils # 8.7 H Lymphocytes # 2.3 Monocytes # 1.1 H Eosinophils # 0.3 Basophils # 0.0 Nucleated Red Blood Cells # 0.0 Erythrocyte Sedimentation Rate 68 H Sodium Level 136 Potassium Level 3.6 Chloride Level 106 Carbon Dioxide Level 23 Anion Gap 11 Blood Urea Nitrogen 11 Creatinine 1.12 Glucose Level 137 Calcium Level 9.0 Medications Medications Current Medications Acetaminophen/ Hydrocodone Bitart ([place] (5/325)) 1 tab Q4H PRN PO PAIN LEVEL 1 -5; Start 06/13/16 at 17:00 Acetaminophen/ Hydrocodone Bitart ([place] (5/325)) 2 tab Q4H PRN PO PAIN LEVEL 6 -10; Start 06/13/16 at 17:00 Prochlorperazine (Compazine) 10 mg Q4H PRN PO NAUSEA AND/OR VOMITING; Start 06/13/16 at 17:00 Ondansetron HCl (Zofran Inj) 4 mg Q6H PRN IV NAUSEA AND/OR VOMITING Last administered on 06/16/16 21:07; Admin Dose 4 MG; Start 06/13/16 at 17:00 Al Hydrox/Mg Hydrox/Simethicone (Mag-Al Plus) 15 ml Q4H PRN PO CONSTIPATION Last administered on 06/17/16 05:45; Admin Dose 15 ML; Start 06/13/16 at 17:00 Docusate Sodium (Colace) 100 mg BID PO Last administered on 06/17/16 09:16; Admin Dose 100 MG; Start 06/14/16 at 09:00 Acetaminophen (Tylenol Tab) 650 mg Q4H PRN PO TEMP GREATER THAN 101F OR LYN Last administered on 06/14/16 20:55; Admin Dose 650 MG; Start 06/13/16 at 17:00 Ascorbic Acid (Vitamin C) 1,000 mg BID PO Last administered on 06/17/16 09:16; Admin Dose 1,000 MG; Start 06/14/16 at 09:00 Ferrous Sulfate (Ferrous Sulfate (Ec)) 325 mg TID PO Last administered on 20:54; Admin Dose 325 MG; Start 06/14/16 at 09:00 Ranitidine HCl (Zantac) 150 mg BID PO Last administered on 06/17/16 09:16; Admin Dose 150 MG; Start 06/13/16 at 21:00 Diazepam (Valium) 5 mg Q4H PRN PO MUSCLE SPASMS Last administered on 06/16/16 23:48; Admin Dose 5 MG; Start 06/13/16 at 17:00 Diazepam (Valium) 5 mg Q4H PRN IM MUSCLE SPASMS; Start 06/13/16 at 17:00 Phenol (Cepastat Lozenge) 1 lozenge PRN PRN MT SORE THROAT Last administered on 06/16/16 23:48; Admin Dose 1 LOZENGE; Start 06/13/16 at 17:00 Bethanechol Chloride (Urecholine) 25 mg PRN PRN PO UNABLE TO VOID Last administered on 06/14/16 09:58; Admin Dose 25 MG; Start 06/13/16 at 17:00 Diphenhydramine HCl (Benadryl) 50 mg Q6H PRN PO PRURITUS; Start 06/13/16 at 17: 00 Naloxone HCl (Narcan) 0.2 mg Q2M PRN IV RR 8 BREATHS/MIN OR LESS; Start at 17:00 Naloxone HCl (Narcan) 0.2 mg PRN PRN IV DECREASED REPIRATORY RATE; Start at 17:30 Hydromorphone HCl (Dilaudid DRY HOUSE ATTENDANT) Q4PCA IV Last administered on 06/14/16 01:59 ; Admin Dose 6 MG; Start 06/13/16 at 17:30 Oxycodone/ Acetaminophen (Percocet (5/ 325)) 1 tab Q4H PRN PO PAIN LEVEL 1-5 Last administered on 06/17/16 08:02; Admin Dose 1 TAB; Start 06/13/16 at 17:30 Oxycodone/ Acetaminophen (Percocet (5/ 325)) 2 tab Q4H PRN PO PAIN LEVEL 6-10 Last administered on 06/17/16 14:12; Admin Dose 2 TAB; Start 06/13/16 at 17:30 Hydromorphone HCl (Dilaudid) 0.2 mg Q4H PRN IV PAIN LEVEL 1-5; Start 06/13/16 at 17:30 Hydromorphone HCl (Dilaudid) 0.4 mg Q4H PRN IV PAIN LEVEL 6-10 Last administered on 06/17/16 05:59; Admin Dose 0.4 MG; Start 06/13/16 at 17:30 Ondansetron HCl (Zofran Inj) 4 mg Q6H PRN IV NAUSEA AND/OR VOMITING; Start 06/13 at 17:30 Trimethobenzamide HCl (Tigan) 200 mg Q8H PRN IM NAUSEA AND/OR VOMITING; Start 06/13/16 at 17:30 Diphenhydramine HCl (Benadryl) 25 mg Q6H PRN IV ITCHING; Start 06/13/16 at 17:30 Miscellaneous Information 1. Discontinue DRY HOUSE ATTENDANT... DRY HOUSE ATTENDANT IV ; Start 06/13/16 at 17:30 Miscellaneous Information 1. Discontinue DRY HOUSE ATTENDANT... DRY HOUSE ATTENDANT IV ; Start 06/13/16 at 17:30 Lamotrigine (Lamictal) 25 mg QHS PO Last administered on 06/15/16 20:54; Admin Dose 25 MG; Start 06/13/16 at 21:00 Patient Own Medication 2 ea QHS PO Last administered on 06/16/16 21:05; Admin Dose 2 EA; Start 06/13/16 at 22:10 Patient Own Medication 1 ea BID PO Last administered on 06/17/16 09:04; Admin Dose 1 EA; Start 06/14/16 at 21:00 Lisinopril (Zestril) 10 mg 0630 PO Last administered on 06/17/16 05:59; Admin Dose 10 MG; Start 06/17/16 at 06:30 TARAN WANG MD Jun 17, 2016 16:28
[2016-06-17 19:00] VITALS: BP 139/94; RESP 18
[2016-06-17] MEDS: LITHIUM CARBONATE 300 MG PO SCH (20:44)
[2016-06-17] MEDS: LAMOTRIGINE 25 MG TAB PO SCH (21:00)
[2016-06-17] MEDS: ONDANSETRON 4 MG INJ IV PRN (22:44)
[2016-06-18] MEDS ORDERED: NA PHOSPHATE/BIPHOS 133 ML ENEMA PR PRN (01:30)
[2016-06-18] MEDS: OXYCODONE/ACETAMINOPHEN (5/325) TAB PO PRN ×3 (02:32→10:11)
[2016-06-18] MEDS: LISINOPRIL 10 MG TAB PO SCH (06:20)
[2016-06-18 07:42] VITALS: BP 171/79; RESP 15
[2016-06-18] MEDS: RANITIDINE 150 MG TAB PO SCH (08:19)
[2016-06-18] MEDS: ASCORBIC ACID 500 MG TAB PO SCH (08:19)
[2016-06-18] MEDS: DOCUSATE SODIUM 100 MG CAP PO SCH (08:19)
[2016-06-18] MEDS: FERROUS SULFATE (EC) 325 MG TAB PO SCH ×3 (08:20→13:00)
--- NOTE | 2016-06-18 08:34 | PN ---
Date/Time of Note Date/Time of Note DATE: 06/18/16 TIME: 08:33 Assessment/Plan Lines/Catheters IV Catheter Type (from Nrsg): Saline Lock Mahajan in Place (from Nrsg): No Subjective 24 Hr Interval Summary The patient is postop day #5 following a multilevel decompressive laminectomy from L1-L5. He is afebrile. He is comfortable in bed. His incision is clean and dry. Neurovascular structures are intact distally. His hemoglobin yesterday morning was 7.9. I am repeating it this morning if it is increasing, I anticipate he can be discharged later this morning. He and his were given strict discharge precautions and instructions. He will follow-up in my office in 1-2 weeks. Exam/Review of Systems Vital Signs Vitals Vital Signs Date Time Temp Pulse Resp B/P Pulse Ox O2 Delivery O2 Flow Rate FiO2 06/18/16 07:42 98.4 77 15 171/79 98 06/14/16 20:20 Room Air Intake and Output 06/17/16 06/17/16 06/18/16 15:00 23:00 07:00 Intake Total 1800 ml 1400 ml Output Total 1400 ml 2000 ml Balance 400 ml -600 ml Results Result Diagram: 06/17/16 0445 06/17/16 0445 MARU DOE MD Jun 18, 2016 08:34
[2016-06-18] MEDS: MORPHINE SULFATE 15 MG PO SCH (08:39)
[2016-06-18 10:10] LABS: ADD SCAN DIFF NO
[2016-06-18 10:17] LABS: BASOPHILS % 0.3 % (0.0-2.0); EOSINOPHILS # 0.3 10^3/ul (0.0-0.5); EOSINOPHILS % 2.8 % (0.0-7.0); HEMATOCRIT 25.2 % (42.0-52.0); HEMOGLOBIN 8.3 g/dl (14.0-18.0); LYMPHOCYTES % 18.1 % (15.0-51.0); MEAN CORPUSCULAR HEMOGLOBIN 32.3 pg (29.0-33.0); MEAN CORPUSCULAR HGB CONC 32.9 g/dl (32.0-37.0); MEAN CORPUSCULAR VOLUME 98.1 fl (82.0-101.0); MEAN PLATELET VOLUME 9.6 fl (7.4-10.4); MONOCYTE # 1.2 10^3/ul (0.3-0.9); MONOCYTES % 10.4 % (0.0-11.0); NEUTROPHIL # 7.6 10^3/ul (1.6-7.5); NEUTROPHILS % 67.7 % (39.0-77.0); PLATELET COUNT 241 10^3/UL (140-415); RED BLOOD COUNT 2.57 10^6/ul (4.70-6.10); RED CELL DISTRIBUTION WIDTH 14.9 % (11.5-14.5); WHITE BLOOD COUNT 11.2 10^3/ul (4.8-10.8)
--- NOTE | 2016-06-18 12:27 | CONS ---
Date/Time of Note Date/Time of Note DATE: 06/18/16 TIME: 12:26 Assessment/Plan Assessment/Plan Chief Complaint/Hosp Course ID PROGRESS NOTE CURRENT ABX=> OFF ABX 24H INTERVAL SUMMARY * Patient seen prior to DC today, sitting up in chair, doing well -- is thankful for Dr. Reid's initial consult -- Received Vanco IV during the howard- op period. Denies diarrhea, no oral thrush, ready to DC home OFF ABX, ambulatory. PHYSICAL EXAMINATION: GENERAL: VSS, NAD, Afebrile HEENT: Unremarkable NECK: Supple, trachea midline. CHEST: Rise symmetrical, without dyspnea on observation HEART: Pulse RRR ABDOMEN: Soft EXTREMITIES: Warm ID ASSESSMENT 71 yo M admit with: 1. Status post decompressive laminectomy at L1 through L5 levels with microdiskectomy==> cx neg, no discitis. 2. Bilateral atelectasis. 3. Bipolar disorder. 4. History of hepatitis C virus. 5. Hypertension. INVASIVES: PIV ABX ALLERGY: PCN/SULFA/QUINOLONES CURRENT ABX: => OFF ABX ID RECOMMENDATIONS 1. Concur w/ DC plan of care OFF ABX * Had a nice chat with patient and significant other who expresses gratitude, appreciation for ABX team follow up today prior to DC home . Problems: Consultation Date/Type/Reason Admit Date/Time Jun 13, 2016 at 09:35 Initial Consult Date Type of Consultation: ID Referring Provider: MARU DOE MD Exam/Review of Systems Vital Signs Vitals Vital Signs Date Time Temp Pulse Resp B/P Pulse Ox O2 Delivery O2 Flow Rate FiO2 06/18/16 07:42 98.4 77 15 171/79 98 06/14/16 20:20 Room Air Intake and Output 06/17/16 06/17/16 06/18/16 15:00 23:00 07:00 Intake Total 1800 ml 1400 ml Output Total 1400 ml 2000 ml Balance 400 ml -600 ml Results Result Diagram: 06/18/16 1000 06/17/16 0445 Results 24 hrs Laboratory Tests Test 06/18/16 10:00 White Blood Count 11.2 H Red Blood Count 2.57 L Hemoglobin 8.3 L Hematocrit 25.2 L Mean Corpuscular Volume 98.1 Mean Corpuscular Hemoglobin 32.3 Mean Corpuscular Hemoglobin Concent 32.9 Red Cell Distribution Width 14.9 H Platelet Count 241 # Mean Platelet Volume 9.6 Neutrophils % 67.7 Lymphocytes % 18.1 Monocytes % 10.4 Eosinophils % 2.8 Basophils % 0.3 Nucleated Red Blood Cells % 0.0 Neutrophils # 7.6 H Lymphocytes # 2.0 Monocytes # 1.2 H Eosinophils # 0.3 Basophils # 0.0 Nucleated Red Blood Cells # 0.0 Medications Medications Current Medications Acetaminophen/ Hydrocodone Bitart ([place] (5/325)) 1 tab Q4H PRN PO PAIN LEVEL 1 -5; Start 06/13/16 at 17:00 Acetaminophen/ Hydrocodone Bitart ([place] (5/325)) 2 tab Q4H PRN PO PAIN LEVEL 6 -10; Start 06/13/16 at 17:00 Prochlorperazine (Compazine) 10 mg Q4H PRN PO NAUSEA AND/OR VOMITING; Start 06/13/16 at 17:00 Ondansetron HCl (Zofran Inj) 4 mg Q6H PRN IV NAUSEA AND/OR VOMITING Last administered on 06/17/16 22:44; Admin Dose 4 MG; Start 06/13/16 at 17:00 Al Hydrox/Mg Hydrox/Simethicone (Mag-Al Plus) 15 ml Q4H PRN PO CONSTIPATION Last administered on 06/17/16 05:45; Admin Dose 15 ML; Start 06/13/16 at 17:00 Docusate Sodium (Colace) 100 mg BID PO Last administered on 06/18/16 08:19; Admin Dose 100 MG; Start 06/14/16 at 09:00 Acetaminophen (Tylenol Tab) 650 mg Q4H PRN PO TEMP GREATER THAN 101F OR LYN Last administered on 06/14/16 20:55; Admin Dose 650 MG; Start 06/13/16 at 17:00 Ascorbic Acid (Vitamin C) 1,000 mg BID PO Last administered on 06/18/16 08:19; Admin Dose 1,000 MG; Start 06/14/16 at 09:00 Ferrous Sulfate (Ferrous Sulfate (Ec)) 325 mg TID PO Last administered on 08:39; Admin Dose 325 MG; Start 06/14/16 at 09:00 Ranitidine HCl (Zantac) 150 mg BID PO Last administered on 06/18/16 08:19; Admin Dose 150 MG; Start 06/13/16 at 21:00 Diazepam (Valium) 5 mg Q4H PRN PO MUSCLE SPASMS Last administered on 06/16/16 23:48; Admin Dose 5 MG; Start 06/13/16 at 17:00 Diazepam (Valium) 5 mg Q4H PRN IM MUSCLE SPASMS; Start 06/13/16 at 17:00 Phenol (Cepastat Lozenge) 1 lozenge PRN PRN MT SORE THROAT Last administered on 06/16/16 23:48; Admin Dose 1 LOZENGE; Start 06/13/16 at 17:00 Bethanechol Chloride (Urecholine) 25 mg PRN PRN PO UNABLE TO VOID Last administered on 06/14/16 09:58; Admin Dose 25 MG; Start 06/13/16 at 17:00 Diphenhydramine HCl (Benadryl) 50 mg Q6H PRN PO PRURITUS; Start 06/13/16 at 17: 00 Naloxone HCl (Narcan) 0.2 mg Q2M PRN IV RR 8 BREATHS/MIN OR LESS; Start at 17:00 Naloxone HCl (Narcan) 0.2 mg PRN PRN IV DECREASED REPIRATORY RATE; Start at 17:30 Hydromorphone HCl (Dilaudid INSPECTOR GOLF BALL) Q4PCA IV Last administered on 06/14/16 01:59 ; Admin Dose 6 MG; Start 06/13/16 at 17:30 Oxycodone/ Acetaminophen (Percocet (5/ 325)) 1 tab Q4H PRN PO PAIN LEVEL 1-5 Last administered on 06/17/16 08:02; Admin Dose 1 TAB; Start 06/13/16 at 17:30 Oxycodone/ Acetaminophen (Percocet (5/ 325)) 2 tab Q4H PRN PO PAIN LEVEL 6-10 Last administered on 06/18/16 10:11; Admin Dose 2 TAB; Start 06/13/16 at 17:30 Hydromorphone HCl (Dilaudid) 0.2 mg Q4H PRN IV PAIN LEVEL 1-5; Start 06/13/16 at 17:30 Hydromorphone HCl (Dilaudid) 0.4 mg Q4H PRN IV PAIN LEVEL 6-10 Last administered on 06/17/16 05:59; Admin Dose 0.4 MG; Start 06/13/16 at 17:30 Ondansetron HCl (Zofran Inj) 4 mg Q6H PRN IV NAUSEA AND/OR VOMITING; Start 06/13 at 17:30 Trimethobenzamide HCl (Tigan) 200 mg Q8H PRN IM NAUSEA AND/OR VOMITING; Start 06/13/16 at 17:30 Diphenhydramine HCl (Benadryl) 25 mg Q6H PRN IV ITCHING; Start 06/13/16 at 17:30 Miscellaneous Information 1. Discontinue INSPECTOR GOLF BALL... INSPECTOR GOLF BALL IV ; Start 06/13/16 at 17:30 Miscellaneous Information 1. Discontinue INSPECTOR GOLF BALL... INSPECTOR GOLF BALL IV ; Start 06/13/16 at 17:30 Lamotrigine (Lamictal) 25 mg QHS PO Last administered on 06/15/16 20:54; Admin Dose 25 MG; Start 06/13/16 at 21:00 Patient Own Medication 2 ea QHS PO Last administered on 06/17/16 20:44; Admin Dose 2 EA; Start 06/13/16 at 22:10 Patient Own Medication 1 ea BID PO Last administered on 06/18/16 08:39; Admin Dose 1 EA; Start 06/14/16 at 21:00 Lisinopril (Zestril) 10 mg 0630 PO Last administered on 06/18/16 06:20; Admin Dose 10 MG; Start 06/17/16 at 06:30 Sodium Biphosphate/ Sodium Phosphate (Fleet Enema) 133 ml DAILY PRN [place] CONSTIPATION; Start 06/18/16 at 01:30 TOM SALCEDO NP Jun 18, 2016 12:26
[2016-06-18] MEDS: AL HYDROX/MG HYDROX/SIMETH 30 ML CUP PO PRN (13:21)
== END 2016-06-18 13:15 | disposition home or self-care (01) | DRG 519 ==
LOC: REC 09:35 → MS1 18:00
PROVIDERS: ADMIT Orthopaedic Surgery; ATTEND Orthopaedic Surgery
PROC: 01NB0ZZ Release Lumbar Nerve, Open Approach (ICD-10-PCS; 2016-06-13)
PROC: 0SB20ZZ Excision of Lumbar Vertebral Disc, Open Approach (ICD-10-PCS; 2016-06-13)
PROC: 4A11X4G Monitoring of Peripheral Nervous Electrical Activity, Intraoperative, External Approach (ICD-10-PCS; 2016-06-13)
PROC: 30233N1 Transfusion of Nonautologous Red Blood Cells into Peripheral Vein, Percutaneous Approach (ICD-10-PCS; 2016-06-13)
PROC: 00NY0ZZ Release Lumbar Spinal Cord, Open Approach (ICD-10-PCS; principal; 2016-06-13 12:30)
DX: M48.06 Spinal stenosis, lumbar region (principal); D62 Acute posthemorrhagic anemia; I10 Essential (primary) hypertension; J98.11 Atelectasis; M51.26 Other intervertebral disc displacement, lumbar region; F31.71 Bipolar disorder, in partial remission, most recent episode hypomanic; Z87.81 Personal history of (healed) traumatic fracture; N40.0 Benign prostatic hyperplasia without lower urinary tract symptoms; J31.0 Chronic rhinitis; Z88.0 Allergy status to penicillin; Z88.2 Allergy status to sulfonamides; Z88.8 Allergy status to other drugs, medicaments and biological substances
CPT/HCPCS: 36430; 71010; 72020; 80048; 80053; 80202; 81001; 81003; 82270; 83010; 85014; 85018; 85025; 85651; 86850; 86900; 86901; 86920; 87040; 87070; 87075; 87086; 87102; 87116; 88304; 93923; 97116; 97162; 97530; J0360; J0690; J1100; J1170; J1200; J2250; J2405; J2597; J2710; J3010; J3370; J7042; J7120; P9016; P9045

== ENCOUNTER 2016-08-21 13:40 | Emergency (ER) | payer MEDICARE, OTHER ==
[~2016-08-21] VITALS: Ht 167.6 cm; Wt 78.0 kg
[~2016-08-21 13:40] MED LIST changes: -ALBUMIN HUMAN 5% 250 ML INJ ONE; +LISI10TA2 PO; +LITH300T5 PO; +MORP15TA92 PO
[2016-08-21 13:43] VITALS: Ht 167.6 cm; Wt 78.0 kg
[2016-08-21] MEDS ORDERED: ONDANSETRON (ODT) 4 MG TAB ODT STA (14:01)
[2016-08-21 14:02] VITALS: TEMP 97.8
[2016-08-21] MEDS ORDERED: HYDROCODONE/APAP (10/325) TAB PO ONE (14:30)
--- NOTE | 2016-08-21 14:55 | RADRPT ---
PROCEDURE: CT Abdomen and Pelvis without contrast. CLINICAL INDICATION: Right flank pain TECHNIQUE: CT scan of the abdomen and pelvis without contrast was performed on a multidetector hig h-resolution CT scanner. The patient was scanned without intravenous contrast. Coronal and sagittal reformatted images were obtained from the axial source images. Images were reviewed on a high-resol [employer] PACS workstation. The total exam CTDI equals 11.2 mGy and the total exam DLP equals 696.56 mGy -cm. One or more of the following dose reduction techniques were used: Automated exposure control. Adjustment of the mA and/or kV according to patient size. Use of iterative reconstruction technique. COMPARISON: Intraoperative L-spine 06/13/2016. FINDINGS: CT abdomen: The lung bases are clear. The heart size is normal, without pericardial thickening or effusion. Th e liver is normal in size and density without focal mass or intrahepatic biliary dilatation. The sp amaya is normal in size and homogeneous in density. The stomach is partially collapsed, but is gross ly unremarkable. The pancreas as visualized is normal. The gallbladder is unremarkable. There is n o evidence for biliary dilatation. The adrenal glands are symmetric and normal. The kidneys are sy mmetrically unremarkable as well. No renal calculus or obstructive uropathy or mass lesion is seen. The aorta is of normal caliber. Aortic vascular calcifications are present. There is no retroperit shane lymphadenopathy. The brea hepatis region is clear. The bowel and mesentery, as visualized, are equally unremarkable. CT pelvis: The small bowel loops situated within the pelvis are unremarkable. There is a normal appendix. The pelvic organs are normal. The pelvic sidewalls and inguinal regions are clear. The sigmoid colon a nd rectum are remarkable for sigmoid diverticulosis. No mass, lymphadenopathy, or free fluid is see n. No acute inflammation is seen. The patient is status post laminectomy at L1 through L5. There i s erosive changes involving the inferior endplate of L2 with approximately 40% anterior height loss of the left aspect of the inferior L2. No focal kyphosis is identified. Air is seen in the disk sp chavez extending into the vertebral body which can be seen with vertebral osteonecrosis. There is para spinal soft tissue thickening at this level. There is mild hyperdense material at the disk level pr ojecting into the canal and extends posteriorly into the laminectomy defect. There is a larger hyper dense material measures up to 2.5 x 2.2 cm at the right lateral aspect of the disk extending along the psoas muscle. Sub centimeter hyperdense foci are seen in the right psoas muscle. There are exte nsive degenerative changes in the remainder of the lumbar spine with associated bilateral neural for aminal stenosis at L3-L4 through L5-S1. IMPRESSION: 1. Status post laminectomies at L1-L5. Erosive changes involving the inferior endplate of L2 with adjacent gas in the disk space extending into the vertebral body which can be seen with vertebral os nilesh necrosis. 2. Significant paraspinal soft tissue thickening at the level of L2 with indeterminate mildly hyper dense material at the disk level extending along the right psoas muscle with the largest component m easures 2.5 x 2.2 cm at the level of L3 vertebral body. Smaller component at the left lateral disk level of L2-L3 projecting into the canal and extends posteriorly into the laminectomy defect. Recom mend MRI lumbar spine with and without contrast for further evaluation. 3. Extensive degenerative changes at L3-L4 through L5-S1. 4. Mild sigmoid diverticulosis without evidence of acute diverticulitis. 5. No urolithiasis. No hydronephrosis. 6. Normal appendix. 7. Scattered aortoiliac atherosclerosis. RPTAT: PP .Himanshu Stein MD, Date Time Electronically viewed and signed by .Himanshu Stein MD, on 08/21/2016 14:55 .O/
[2016-08-21] MEDS ORDERED: HYDR-902 PO (15:07)
--- NOTE | 2016-08-21 15:33 | ERD ---
ER Documentation Chief Complaint Date/Time DATE: 08/21/16 TIME: 15:32 Chief Complaint Complains of right hip and flank pain HPI Patient is a 8-year-old male with hypertension and back pain who presents with back pain. He has right lower back pain that radiates to his right hip. He said that it started "a while ago" but is gotten worse. He said that he had a botched surgery in [place] on April 07 and then had a revision surgery of his back at [facility] in June 2016. He is able to ambulate today. He has an MRI scheduled by Dr. Nichole on Monday. He tried naproxen for pain. He has had no incontinence or fevers. ROS All systems reviewed and are negative except as per history of present illness. Medications Home Meds Active Scripts Hydrocodone/Acetaminophen ([place] 10-325 Tablet) 1 Each Tablet, 1 TAB PO Q6H Y for PAIN, #7 TAB Prov:GREG POE MD 08/21/16 Reported Medications [place] Carbonate* ([place] Carbonate*) 300 Mg Tablet, 600 MG PO QHS, TAB 06/13/16 Discontinued Reported Medications Lisinopril* (Lisinopril*) 10 Mg Tablet, 10 MG PO DAILY, #30 TAB 06/13/16 Morphine Sulfate* (Ms Contin*) 15 Mg Tablet.sa, 15 MG PO BID, TAB.SA 06/13/16 Allergies Allergies: Coded Allergies: alfuzosin (Verified Allergy, Mild, 08/21/16) amitriptyline (Verified Allergy, Mild, 08/21/16) tamsulosin (Verified Allergy, Mild, 08/21/16) Penicillins (Verified Allergy, Unknown, 08/21/16) Sulfa (Sulfonamide Antibiotics) (Verified Allergy, Unknown, 08/21/16) ciprofloxacin (Verified Allergy, Unknown, 08/21/16) levofloxacin (Verified Allergy, Unknown, 08/21/16) tetanus immune globulin (Verified Allergy, Unknown, 08/21/16) tetanus toxoid, adsorbed (Verified Allergy, Unknown, 08/21/16) PMhx/Soc History of Surgery: Yes Anesthesia Reaction: No Hx Neurological Disorder: Yes (pt has back surgery) Hx Respiratory Disorders: No Hx Cardiac Disorders: Yes (hypertension) Hx Psychiatric Problems: Yes (bipolar) Hx Miscellaneous Medical Probl: Yes (see PT note) Hx Alcohol Use: No Hx Substance Use: No Hx Tobacco Use: No Smoking Status: Never smoker FmHx Family History: diabetes Physical Exam Vitals Vital Signs Date Time Temp Pulse Resp B/P Pulse Ox O2 Delivery O2 Flow Rate FiO2 08/21/16 14:02 97.8 08/21/16 13:43 88 20 184/110 98 Physical Exam Const: No acute distress Head: Atraumatic Eyes: Normal Conjunctiva ENT: Normal External Ears, Nose and Mouth. Neck: Full range of motion..~ No meningismus. Resp: Clear to auscultation bilaterally Cardio: Regular rate and rhythm, no murmurs Abd: Soft, non tender, non distended. Normal bowel sounds Skin: No petechiae or rashes Back: No midline or flank tenderness Ext: No cyanosis, or edema Neur: Awake and alert, ambulatory in the emergency department with a cane Psych: Normal Mood and Affect Results 24 hrs Current Medications Medications (Trade) Dose Ordered Sig/Leona Route PRN Reason Start Time Stop Time Status Last Admin Dose Admin Acetaminophen/ Hydrocodone Bitart ([place] (10/325)) 1 tab ONCE ONCE PO 08/21/16 14:30 08/21/16 14:31 DC 08/21/16 14:13 Ondansetron HCl (Zofran Odt) 4 mg ONCE STAT ODT 08/21/16 14:01 08/21/16 14:02 DC 08/21/16 14:13 Procedures/MDM CT abdomen pelvis shows no acute process per radiology. Patient is a 71-year-old male with back pain presents with back pain. CT scan shows no obvious abnormalities. At this point I doubt epidural abscess, epidural hematoma, or cauda equina syndrome. The patient has an MRI scheduled for Monday which I told him he should still obtain. The patient can return for any worsening symptoms. He was given [place] for pain and he feels better. He will be given a short course of [place] for pain. Departure Diagnosis: Primary Impression: Back pain Back pain location: low back pain Chronicity: acute Back pain laterality: right Sciatica presence: without sciatica Qualified Code: M54.5 - Acute right-sided low back pain without sciatica Condition: Fair Patient Instructions: Back Pain (Acute Or Chronic) Referrals: MARU DOE MD Additional Instructions: Call your primary care doctor TOMORROW for an appointment during the next 1-2 days.See the doctor sooner or return here if your condition worsens before your appointment time. GREG POE MD Aug 21, 2016 15:33
== END 2016-08-21 15:33 | disposition home or self-care (01) ==
LOC: E/R 13:40
DX: M54.5 Low back pain (principal); I10 Essential (primary) hypertension
CPT/HCPCS: 74176

== ENCOUNTER 2016-08-27 12:13 | Emergency (ER) | payer MEDICARE, OTHER ==
[~2016-08-27] VITALS: Wt 75.0 kg
[~2016-08-27 12:13] MED LIST changes: +HYDR-902 PO; -LISI10TA2 PO; -MORP15TA92 PO
[2016-08-27] MEDS ORDERED: HYDR-902 PO (13:09)
--- NOTE | 2016-08-27 14:17 | ERD ---
ER Documentation Chief Complaint Date/Time DATE: 08/27/16 TIME: 14:15 Chief Complaint MED REFILL HPI This is a 71-year-old male who presents the emergency department today for refill of his medication. Patient states he takes [place] and has chronic back pain. Patient states he was supposed to have an MRI but did not have it because he is claustrophobic and did not have any medication for the claustrophobia. States that he has been taking 2 pills twice a day of his [place] and he has run out. States his back specialist is . denies any fevers or chills, loss of bowel or bladder control. Denies any new trauma. ROS All systems reviewed and are negative except as per history of present illness. Medications Home Meds Active Scripts Hydrocodone/Acetaminophen ([place] 10-325 Tablet) 1 Each Tablet, 1 TAB PO Q6H Y for PAIN, #20 TAB Prov:LATHA LAGUNAS PA-C 08/27/16 Hydrocodone/Acetaminophen ([place] 10-325 Tablet) 1 Each Tablet, 1 TAB PO Q6H Y for PAIN, #7 TAB Prov:GREG POE MD 08/21/16 Reported Medications [place] Carbonate* ([place] Carbonate*) 300 Mg Tablet, 600 MG PO QHS, TAB 06/13/16 Discontinued Reported Medications Lisinopril* (Lisinopril*) 10 Mg Tablet, 10 MG PO DAILY, #30 TAB 06/13/16 Morphine Sulfate* (Ms Contin*) 15 Mg Tablet.sa, 15 MG PO BID, TAB.SA 06/13/16 Allergies Allergies: Coded Allergies: alfuzosin (Verified Allergy, Mild, 08/21/16) amitriptyline (Verified Allergy, Mild, 08/21/16) tamsulosin (Verified Allergy, Mild, 08/21/16) Penicillins (Verified Allergy, Unknown, 08/21/16) Sulfa (Sulfonamide Antibiotics) (Verified Allergy, Unknown, 08/21/16) ciprofloxacin (Verified Allergy, Unknown, 08/21/16) levofloxacin (Verified Allergy, Unknown, 08/21/16) tetanus immune globulin (Verified Allergy, Unknown, 08/21/16) tetanus toxoid, adsorbed (Verified Allergy, Unknown, 08/21/16) PMhx/Soc History of Surgery: Yes Anesthesia Reaction: No Hx Neurological Disorder: Yes (pt has back surgery) Hx Respiratory Disorders: No Hx Cardiac Disorders: Yes (hypertension) Hx Psychiatric Problems: Yes (bipolar) Hx Miscellaneous Medical Probl: Yes (see PT note) Hx Alcohol Use: No Hx Substance Use: No Hx Tobacco Use: No Smoking Status: Never smoker Physical Exam Vitals Vital Signs Date Time Temp Pulse Resp B/P Pulse Ox O2 Delivery O2 Flow Rate FiO2 08/27/16 12:24 98.0 79 18 193/98 99 Physical Exam Const: No acute distress, talkative Head: Atraumatic Eyes: Normal Conjunctiva ENT: Normal External Ears, Nose and Mouth. Neck: Full range of motion..~ No meningismus. Resp: Clear to auscultation bilaterally Cardio: Regular rate and rhythm, no murmurs Skin: No petechiae or rashes Back: No midline or flank tenderness pulses 2+. Distal neurovascularly intact. Ext: No cyanosis, or edema Neur: Awake and alert Psych: Normal Mood and Affect Procedures/MDM This is a 71-year-old male who presents to the emergency department today for refill of his [place] for his chronic back pain. Patient was seen here in the emergency department on August 21, [address] Poe patient had a workup done at that time including a CT scan that showed extensive degenerative changes at L3 and 4 and L5 and S1 as well as soft tissue thickening of level of L2 with L2 and 3 projecting into the canal and posterior into the laminectomy defect. Patient was discharged home with 7 tablets of [place] at that time. Patient indicated today that he does not think that he filled that. Patient is afebrile and otherwise well-appearing. He has had no new trauma. Do not feel that he requires further workup or imaging at this time. Low suspicion for acute fracture, dislocation. Low suspicion for cauda equina or abscess. Patient symptoms at this time is consistent with chronic back pain and degenerative disc disease. Patient showed me an empty prescription bottle that was prescribed by Dr. Braden Romero. Patient was prescribed 30 pills on August 22, 2016. I explained to the patient that this was 5 days ago he should not have run out of his medication. Patient indicated he was taking 2 pills twice a day and I have explained to him that this is not the indications that were prescribed on the bottle. I did place a call to Dr. Romero who did indicate that patient has been given a one-time prescription to help with the anxiety and claustrophobia and that he is supposed to be having an MRI next week. Dr. Romero did request that I give the patient a one-time prescription of [place] 12/13/2024 every 6 hours # 20. He is asked me to explain to the patient that he will not be getting any more refills. I did explain this to the patient and patient understood. I explained to him that he would need to get his medication refills done by Dr. Romero. Patient and understood. Dr. Romero did also indicate that he is working with Dr. Nichole on the patient. At this time the patient is stable for discharge and outpatient management. Patient should follow up with their PCP in the next 1-2 days. They may return to the emergency department sooner for any persistent or worsening of symptoms. Patient understood and agreed with the plan. Departure Diagnosis: Primary Impression: Encounter for medication refill Condition: Fair Patient Instructions: Taking Medicine Safely Referrals: HILARIO LAI MD (PCP) Dr. Nick Nichole Additional Instructions: Call your primary care doctor TOMORROW for an appointment during the next 1-2 days.See the doctor sooner or return here if your condition worsens before your appointment time. Keep your appointment for your MRI Only take 1 pill every 6 hours as needed for pain LATHA LAGUNAS PA-C Aug 27, 2016 14:17
--- NOTE | 2016-08-27 15:00 | EN ---
Date/Time of Note Date/Time of Note DATE: 08/27/16 TIME: 14:[address] Romero came to the emergency department just now asking if Mr. Dave was still here in the emergency department as Dr. Romero has just received 2 calls from 2 different providers stating that the patient is calling them for pain medication refills. Dr. Romero will discuss this with the patient and he has expressed to us here in the emergency department that he does not want the patient to be written anymore prescriptions for narcotics. Upon patient's next visit he will be given referral for china painter. Discussed the patient with Dr. Boss after this encounter with Dr. Romero and a note will be made for chronic pain patient. LATHA LAGUNAS PA-C Aug 27, 2016 15:00
== END 2016-08-27 13:17 | disposition home or self-care (01) ==
LOC: FTE 12:13
DX: Z76.0 Encounter for issue of repeat prescription (principal); I10 Essential (primary) hypertension
CPT/HCPCS: 99281

== ENCOUNTER 2016-10-21 16:09 | Inpatient (IN) | payer MEDICARE, OTHER ==
[~2016-10-21] VITALS: Ht 175.3 cm; Wt 75.9 kg
[2016-10-21] MEDS ORDERED: AZTREONAM 1 GM/NS (PMX) 50 ML IVPB STA (16:17)
[2016-10-21] MEDS ORDERED: SODIUM CHLORIDE 0.9% 1L BAG IV* STA (16:17)
[2016-10-21] MEDS ORDERED: VANCOMYCIN 1 GM (PMX) 250 ML IVPB ONE (16:30)
[2016-10-21] MEDS ORDERED: HYDROmorphONE 1 MG/ML SYG IV STA (16:43)
[2016-10-21] MEDS ORDERED: ONDANSETRON 4 MG INJ IV STA (16:43)
--- NOTE | 2016-10-21 16:55 | RADRPT ---
PROCEDURE: XR Chest. CLINICAL INDICATION: Possible Sepsis TECHNIQUE: Single frontal view of the chest was obtained COMPARISON: None FINDINGS: This is an apical lordotic projection. Surgical material is again seen projecting over the midline lower neck. There is stable mild elevation of the right hemidiaphragm. The cardiac silhouette remains mildly enlarged. There are atherosclerotic calcifications of the aor ta. There is improved bibasilar atelectasis. Mild bibasilar atelectasis persist. No pneumothorax, pleural effusion, or consolidation is identified. There is mild pulmonary vascular congestion. There are degenerative changes of the visualized spine and bilateral acromioclavicular joints. A ch ronic left midclavicular fracture deformity is more clearly demonstrated. IMPRESSION: 1. Interval improved aeration of both lung bases with mild persistent bibasilar atelectasis. 2. Mild pulmonary vascular congestion, unchanged. 3. Chronic left midclavicular fracture deformity. RPTAT: QQ Physician Angela Date Time Electronically viewed and signed by Physician Angela on 10/21/2016 16:55 TEO/
[2016-10-21] MEDS ORDERED: ONDANSETRON 4 MG INJ IV PRN (17:00)
[2016-10-21] MEDS ORDERED: ACETAMINOPHEN 325 MG TAB PO PRN (17:00)
[2016-10-21 17:17] LABS: INR 0.94; PROTIME 12.6 Sec (12.2-14.2)
[2016-10-21 17:24] LABS: ALANINE AMINOTRANSFERASE 30 IU/L (13-69); ALBUMIN 4.5 g/dl (3.3-4.9); ALBUMIN/GLOBULIN RATIO 1.36; ALKALINE PHOSPHATASE 108 IU/L (42-121); ANION GAP 19 (8-16); ASPARTATE AMINO TRANSFERASE 22 IU/L (15-46); BILIRUBIN,INDIRECT 0.1 mg/dl (0-1.1); BILIRUBIN,TOTAL 0.1 mg/dl (0.2-1.3); BLOOD UREA NITROGEN 19 mg/dl (7-20); CALCIUM 10.4 mg/dl (8.4-10.2); CARBON DIOXIDE 22 mmol/L (21-31); CHLORIDE 105 mmol/L (97-110); CREATININE 1.32 mg/dl (0.61-1.24); GLUCOSE 104 mg/dl (70-220); HEMOGLOBIN 11.6 g/dl (14.0-18.0); MEAN CORPUSCULAR HEMOGLOBIN 31.4 pg (29.0-33.0); MEAN CORPUSCULAR HGB CONC 33.1 g/dl (32.0-37.0); MEAN CORPUSCULAR VOLUME 94.9 fl (82.0-101.0); MEAN PLATELET VOLUME 11.4 fl (7.4-10.4); PLATELET COUNT 260 10^3/UL (140-415); POSITIVE DIFF @See below; POTASSIUM 4.4 mmol/L (3.5-5.1); RED BLOOD COUNT 3.69 10^6/ul (4.70-6.10); RED CELL DISTRIBUTION WIDTH 16.9 % (11.5-14.5); SODIUM 142 mmol/L (135-144); TOTAL PROTEIN 7.8 g/dl (6.1-8.1); WHITE BLOOD COUNT 15.6 10^3/ul (4.8-10.8)
[2016-10-21] MEDS ORDERED: NA PHOSPHATE/BIPHOS 133 ML ENEMA PR PRN (17:30)
[2016-10-21] MEDS ORDERED: NACL 0.9% 3 ML SYG IV SCH (17:30)
[2016-10-21] MEDS ORDERED: BISACODYL 10 MG SUPP PR PRN (17:30)
[2016-10-21] MEDS ORDERED: HYDROCODONE/APAP (5/325) TAB PO PRN ×2 (17:30)
[2016-10-21] MEDS ORDERED: DOCUSATE SODIUM 100 MG CAP PO PRN (17:30)
[2016-10-21] MEDS ORDERED: HYDR-906 PO (17:50)
[2016-10-21] MEDS ORDERED: LISI10TA2 PO (17:51)
[2016-10-21 17:52] LABS: TROPONIN-I < 0.012 ng/ml (0.00-0.12)
[2016-10-21 17:55] LABS: ADD UMIC NO; UR ASCORBIC ACID NEGATIVE (NEGATIVE); UR BILIRUBIN (Dip) NEGATIVE (NEGATIVE); UR BLOOD (Dip) NEGATIVE (NEGATIVE); UR CLARITY CLEAR (CLEAR); UR COLOR STRAW (YELLOW); UR GLUCOSE (Dip) NEGATIVE (NEGATIVE); UR KETONES (Dip) NEGATIVE (NEGATIVE); UR LEUKOCYTE ESTERASE (Dip) NEGATIVE Leu/ul (NEGATIVE); UR NITRITE (Dip) NEGATIVE (NEGATIVE); UR SPECIFIC GRAVITY (Dip) 1.005 (1.003-1.030); UR TOTAL PROTEIN (Dip) NEGATIVE (NEGATIVE); UR UROBILINOGEN (Dip) NEGATIVE (NEGATIVE)
[2016-10-21 18:01] LABS: MONOCYTES % (M) 7 % (0-11); PLATELET ESTIMATE NORMAL
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
--- NOTE | 2016-10-21 18:21 | ERA ---
ER Documentation Chief Complaint Date/Time DATE: 10/21/16 TIME: 18:18 Chief Complaint Sent from MD for eval HPI Patient is a 71-year-old male with hypertension who presents with discitis and osteomyelitis. The patient was sent by Dr. Nichole from orthopedic surgery. The patient said that he has been dealing with this for the past 6 weeks. He has been operated on before in his back and was at another hospital recently for the same. Upon review of old medical records the patient does have previous visits here to the emergency department. ROS All systems reviewed and are negative except as per history of present illness. Medications Home Meds Reported Medications Lisinopril* (Lisinopril*) 10 Mg Tablet, 10 MG PO DAILY, #30 TAB 10/21/16 Hydrocodone/Acetaminophen ([place] 5-325 Tablet) 1 Each Tablet, 1 EACH PO TID, TAB 10/21/16 [place] Carbonate* (Hatch Carbonate*) 300 Mg Tablet, 600 MG PO QHS, TAB 06/13/16 Discontinued Scripts Hydrocodone/Acetaminophen (Palo 10-325 Tablet) 1 Each Tablet, 1 TAB PO Q6H Y for PAIN, #20 TAB Prov:LATHA LAGUNAS PA-C 08/27/16 Hydrocodone/Acetaminophen (Palo 10-325 Tablet) 1 Each Tablet, 1 TAB PO Q6H Y for PAIN, #7 TAB Prov:GREG POE MD 08/21/16 Allergies Allergies: Coded Allergies: alfuzosin (Verified Allergy, Mild, 10/21/16) amitriptyline (Verified Allergy, Mild, 10/21/16) tamsulosin (Verified Allergy, Mild, 10/21/16) Penicillins (Verified Allergy, Unknown, 10/21/16) Sulfa (Sulfonamide Antibiotics) (Verified Allergy, Unknown, 10/21/16) ciprofloxacin (Verified Allergy, Unknown, 10/21/16) levofloxacin (Verified Allergy, Unknown, 10/21/16) tetanus immune globulin (Verified Allergy, Unknown, 10/21/16) tetanus toxoid, adsorbed (Verified Allergy, Unknown, 10/21/16) PMhx/Soc History of Surgery: Yes Anesthesia Reaction: No Hx Neurological Disorder: Yes (pt has back surgery) Hx Respiratory Disorders: No Hx Cardiac Disorders: Yes (hypertension) Hx Psychiatric Problems: Yes (bipolar) Hx Miscellaneous Medical Probl: Yes (see PT note) Hx Alcohol Use: No Hx Substance Use: No Hx Tobacco Use: No Smoking Status: Current every day smoker FmHx Family History: No diabetes Physical Exam Vitals Vital Signs Date Time Temp Pulse Resp B/P Pulse Ox O2 Delivery O2 Flow Rate FiO2 10/21/16 17:00 Nasal Cannula 2 10/21/16 16:13 98.6 101 20 167/74 97 Physical Exam Const: No acute distress Head: Atraumatic Eyes: Normal Conjunctiva ENT: Normal External Ears, Nose and Mouth. Neck: Full range of motion..~ No meningismus. Resp: Clear to auscultation bilaterally Cardio: Regular rate and rhythm, no murmurs Abd: Soft, non tender, non distended. Normal bowel sounds Skin: No petechiae or rashes Back: Back pain with palpation Ext: No cyanosis, or edema Neur: Awake and alert Psych: Normal Mood and Affect Result Diagram: 10/21/16 1640 10/21/16 1640 Results 24 hrs Laboratory Tests Test 10/21/16 16:40 10/21/16 17:15 White Blood Count 15.610^3/ul Red Blood Count 3.6910^6/ul Hemoglobin 11.6g/dl Hematocrit 35.0% Mean Corpuscular Volume 94.9fl Mean Corpuscular Hemoglobin 31.4pg Mean Corpuscular Hemoglobin Concent 33.1g/dl Red Cell Distribution Width 16.9% Platelet Count 48556^3/UL Mean Platelet Volume 11.4fl Segmented Neutrophils % (Manual) 73% Lymphocytes % (Manual) 20% Monocytes % (Manual) 7% Nucleated Red Blood Cells % 0.0/100WBC Absolute Lymphocytes (Manual) 3.110^3/ul Absolute Monocytes (Manual) 1.010^3/ul Platelet Estimate NORMAL Prothrombin Time 12.6Sec Prothrombin Time Ratio 1.0 INR International Normalized Ratio 0.94 Activated Partial Thromboplast Time 20.0Sec Sodium Level 142mmol/L Potassium Level 4.4mmol/L Chloride Level 105mmol/L Carbon Dioxide Level 22mmol/L Anion Gap 19 Blood Urea Nitrogen 19mg/dl Creatinine 1.32mg/dl Glucose Level 104mg/dl Lactic Acid Level 1.7mmol/L Calcium Level 10.4mg/dl Total Bilirubin 0.1mg/dl Direct Bilirubin 0.00mg/dl Indirect Bilirubin 0.1mg/dl Aspartate Amino Transf (AST/SGOT) 22IU/L Alanine Aminotransferase (ALT/SGPT) 30IU/L Alkaline Phosphatase 108IU/L Troponin I < 0.012ng/ml Total Protein 7.8g/dl Albumin 4.5g/dl Globulin 3.30g/dl Albumin/Globulin Ratio 1.36 Urine Color STRAW Urine Clarity CLEAR Urine pH 7.0 Urine Specific [place] 1.005 Urine Ketones NEGATIVEmg/dL Urine Nitrite NEGATIVEmg/dL Urine Bilirubin NEGATIVEmg/dL Urine Urobilinogen NEGATIVEmg/dL Urine Leukocyte Esterase NEGATIVELeu/ul Urine Hemoglobin NEGATIVEmg/dL Urine Glucose NEGATIVEmg/dL Urine Total Protein NEGATIVEmg/dl Current Medications Medications (Trade) Dose Ordered Sig/Leona Route PRN Reason Start Time Stop Time Status Last Admin Dose Admin Sodium Chloride 2640 ml 2,640 ml BOLUS OVER 2 HOURS STAT IV* 10/21/16 16:17 10/21/16 16:18 DC 10/21/16 17:13 Vancomycin HCl 250 ml @ 125 mls/hr ONCE ONCE IVPB 10/21/16 16:30 10/21/16 18:29 Aztreonam (Azactam 1gm/NS (Pmx)) 50 ml @ 100 mls/hr ONCE STAT IVPB 10/21/16 16:17 10/21/16 16:46 DC 10/21/16 16:17 Hydromorphone HCl (Dilaudid) 1 mg ONCE STAT IV 10/21/16 16:43 10/21/16 16:44 DC 10/21/16 17:08 Ondansetron HCl (Zofran Inj) 4 mg ONCE STAT IV 10/21/16 16:43 10/21/16 16:44 DC 10/21/16 17:08 Ondansetron HCl (Zofran Inj) 4 mg BRIDGE ORDER PRN IV NAUSEA AND/OR VOMITING 10/21/16 17:00 10/22/16 16:59 Acetaminophen (Tylenol Tab) 650 mg ER BRIDGE PRN PO MILD PAIN/FEVER 10/21/16 17:00 10/22/16 16:59 IV Flush (NS 3 ml) 3 ml PER PROTOCOL IV 10/21/16 17:30 Acetaminophen/ Hydrocodone Bitart ([place] (5/325)) 1 tab Q6H PRN PO MODERATE PAIN LEVEL 4-6 10/21/16 17:30 Acetaminophen/ Hydrocodone Bitart ([place] (5/325)) 2 tab Q6H PRN PO SEVERE PAIN LEVEL 7-10 10/21/16 17:30 Docusate Sodium (Colace) 100 mg Q12H PRN PO CONSTIPATION 10/21/16 17:30 Bisacodyl (Dulcolax Supp) 10 mg DAILY PRN [place] CONSTIPATION 10/21/16 17:30 Sodium Biphosphate/ Sodium Phosphate (Fleet Enema) 133 ml DAILY PRN [place] CONSTIPATION 10/21/16 17:30 Famotidine (Pepcid) 20 mg DAILY PO 10/21/16 21:00 Enoxaparin Sodium (Lovenox) 40 mg DAILY SC 10/21/16 17:30 Lisinopril (Zestril) 10 mg QAM PO 10/22/16 09:00 [place] Carbonate ([place] Carbonate (Sr)) 600 mg QHS PO 10/21/16 21:00 Procedures/MDM EKG read by me: Rate/Rhythm: Regular rate and rhythm at a rate of 78 Intervals: Normal Impression: No evidence of ischemia or arrhythmia PROCEDURE: XR Chest. CLINICAL INDICATION: Possible Sepsis TECHNIQUE: Single frontal view of the chest was obtained COMPARISON: None FINDINGS: This is an apical lordotic projection. Surgical material is again seen projecting over the midline lower neck. There is stable mild elevation of the right hemidiaphragm. The cardiac silhouette remains mildly enlarged. There are atherosclerotic calcifications of the aorta. There is improved bibasilar atelectasis. Mild bibasilar atelectasis persist. No pneumothorax, pleural effusion, or consolidation is identified. There is mild pulmonary vascular congestion. There are degenerative changes of the visualized spine and bilateral acromioclavicular joints. A chronic left midclavicular fracture deformity is more clearly demonstrated. IMPRESSION: 1. Interval improved aeration of both lung bases with mild persistent bibasilar atelectasis. 2. Mild pulmonary vascular congestion, unchanged. 3. Chronic left midclavicular fracture deformity. RPTAT: QQ Ryanny Reji, Physician Date Time Electronically viewed and signed by Physician Angela on 10/21/2016 16: 55 Patient is a 71-year-old male with previous back surgery who presents with discitis and osteomyelitis per orthopedic surgery. The patient will be admitted to the care of Dr. Romero as this is to Dr. Nichole had requested for admission. The patient will be admitted to a medical surgical bed. He was given broad-spectrum antibiotics with vancomycin and aztreonam. At this point I doubt true sepsis. Dr. Romero requested consultation with Dr. Reid and I have called Dr. Reid and I am awaiting a callback at this time. Departure Diagnosis: Primary Impression: Osteomyelitis Qualified Code: M86.9 - Osteomyelitis of other site, unspecified type Additional Impressions: Pain Diskitis Qualified Code: M46.40 - Discitis, unspecified spinal region Condition: GREG White MD Oct 21, 2016 18:21
[2016-10-21] MEDS: ENOXAPARIN 40 MG/0.4 ML SYG SC SCH (19:30)
--- NOTE | 2016-10-21 19:34 | CONS ---
Date/Time of Note Date/Time of Note DATE: 10/21/16 TIME: 19:33 Consultation Date/Type/Reason Admit Date/Time Date of Consultation: Oct 21, 2016 Type of Consultation: ID Reason for Consultation Antibiotic management Social History Smoking Status: Current every day smoker Exam/Review of Systems Vital Signs Vitals Vital Signs Date Time Temp Pulse Resp B/P Pulse Ox O2 Delivery O2 Flow Rate FiO2 10/21/16 19:32 98.3 86 20 156/82 97 Room Air 10/21/16 17:00 2 Results Result Diagram: 10/21/16 1640 10/21/16 1640 Results 24 hrs Laboratory Tests Test 10/21/16 16:40 10/21/16 17:15 10/21/16 18:05 White Blood Count 15.6 #H Red Blood Count 3.69 #L Hemoglobin 11.6 #L Hematocrit 35.0 #L Mean Corpuscular Volume 94.9 Mean Corpuscular Hemoglobin 31.4 Mean Corpuscular Hemoglobin Concent 33.1 Red Cell Distribution Width 16.9 H Platelet Count 260 Mean Platelet Volume 11.4 H Segmented Neutrophils % (Manual) 73 Lymphocytes % (Manual) 20 Monocytes % (Manual) 7 Nucleated Red Blood Cells % 0.0 Absolute Lymphocytes (Manual) 3.1 H Absolute Monocytes (Manual) 1.0 H Platelet Estimate NORMAL Prothrombin Time 12.6 Prothrombin Time Ratio 1.0 INR International Normalized Ratio 0.94 Activated Partial Thromboplast Time 20.0 L Sodium Level 142 Potassium Level 4.4 Chloride Level 105 Carbon Dioxide Level 22 Anion Gap 19 H Blood Urea Nitrogen 19 Creatinine 1.32 H Glucose Level 104 Lactic Acid Level 1.7 1.0 Calcium Level 10.4 H Total Bilirubin 0.1 L Direct Bilirubin 0.00 Indirect Bilirubin 0.1 Aspartate Amino Transf (AST/SGOT) 22 Alanine Aminotransferase (ALT/SGPT) 30 Alkaline Phosphatase 108 Troponin I < 0.012 Total Protein 7.8 Albumin 4.5 Globulin 3.30 H Albumin/Globulin Ratio 1.36 Urine Color STRAW Urine Clarity CLEAR Urine pH 7.0 Urine Specific [place] 1.005 Urine Ketones NEGATIVE Urine Nitrite NEGATIVE Urine Bilirubin NEGATIVE Urine Urobilinogen NEGATIVE Urine Leukocyte Esterase NEGATIVE Urine Hemoglobin NEGATIVE Urine Glucose NEGATIVE Urine Total Protein NEGATIVE Medications Medications Current Medications Acetaminophen/ Hydrocodone Bitart ([place] (5/325)) 1 tab Q6H PRN PO MODERATE PAIN LEVEL 4-6; Start 10/21/16 at 17:30 Acetaminophen/ Hydrocodone Bitart ([place] (5/325)) 2 tab Q6H PRN PO SEVERE PAIN LEVEL 7-10; Start 10/21/16 at 17:30 Docusate Sodium (Colace) 100 mg Q12H PRN PO CONSTIPATION; Start 10/21/16 at 17: 30 Bisacodyl (Dulcolax Supp) 10 mg DAILY PRN [place] CONSTIPATION; Start 10/21/16 at 17 :30 Sodium Biphosphate/ Sodium Phosphate (Fleet Enema) 133 ml DAILY PRN [place] CONSTIPATION; Start 10/21/16 at 17:30 Famotidine (Pepcid) 20 mg DAILY PO ; Start 10/21/16 at 21:00 Enoxaparin Sodium (Lovenox) 40 mg DAILY SC ; Start 10/21/16 at 17:30 Lisinopril (Zestril) 10 mg QAM PO ; Start 10/22/16 at 09:00 [place] Carbonate ([place] Carbonate (Sr)) 600 mg QHS PO ; Start 10/21/16 at 21: 00 CANDACE MONROY MD Oct 21, 2016 19:34
[2016-10-21 20:05] VITALS: TEMP 98.3
[2016-10-21 20:30] VITALS: BP 126/73; PULSE 81; RESP 16
[2016-10-21 20:52] VITALS: Ht 175.3 cm; Wt 75.9 kg
[2016-10-21] MEDS: LITHIUM CARBONATE (SR) 300 MG TAB PO SCH (21:00)
[2016-10-21] MEDS: FAMOTIDINE 20 MG TAB PO SCH (21:56)
[2016-10-21] MEDS: HYDROmorphONE 2 MG TAB PO PRN (21:56)
[2016-10-22] MEDS ORDERED: HYDROCODONE/APAP (5/325) TAB PO PRN (01:00)
[2016-10-22 01:41] VITALS: RESP 16
[2016-10-22] MEDS: HYDROmorphONE 2 MG TAB PO PRN (03:50)
[2016-10-22 03:58] VITALS: BP 133/71; PULSE 69; RESP 18
--- NOTE | 2016-10-22 04:13 | CONS ---
DATE OF ADMISSION: 10/21/2016 DATE OF CONSULTATION: 10/21/2016 REASON FOR CONSULTATION: Antibiotic management. HISTORY OF PRESENT ILLNESS: Jamil Dave is a 71-year-old male, well known to us from previous admissions. A full outline of his hospital course is done by my nurse practitioner, Rhoda Ramirez. The patient underwent lumbar spine revision surgery on 06/13/2016, and repeat MRI lumbar spine on 10/20/2016 raises the concern of significant lumbar spine paraspinal infectious process involving the right psoas muscle. The patient has a history of many years of lumbar back pain. He has been to surgery on numerous occasions. He had a laminectomy, lumbar L1 and L2 on April [address] Villagran in [place]. He has had postoperative symptoms of teeth chattering and chills. He was seen by Dr. Rader in May 2016 with noted multilevel spinal stenosis from L1-L5, postsurgical changes at L3, herniated disc at L2, L3 on the left, possible diskitis, L2, L3. He had repeat spine surgery with Dr. Rader on 06/13/2016. The operative report showed redo decompressive laminectomy L1 through L5, microdiskectomy L2- L3 on the left, and multiple intraoperative wound cultures, and all were negative. PAST MEDICAL HISTORY: As outlined, also by nurse practitioner, James. ALLERGIES: PENICILLIN, SULFA, QUINOLONES, TETANUS AND INTOLERANT TO AMITRIPTYLINE. HABITS: He quit smoking in 2000. He rarely drinks. Social history otherwise is noncontributory. FAMILY HISTORY: Noncontributory. REVIEW OF SYSTEMS: As per HPI. PHYSICAL EXAMINATION: GENERAL: The patient is a well-developed, well-nourished male, alert, responsive, in no acute distress but complaining of chronic pain. VITAL SIGNS: Stable. He is afebrile. HEENT: Within normal limits. NECK: Supple. Lymph nodes are nonpalpable. CHEST: Decreased breath sounds at the bases. HEART: Without murmur or gallop. ABDOMEN: Soft and nontender without organosplenomegaly or masses. EXTREMITIES: Without cyanosis, clubbing, or edema. Pulses are 1+ in distal extremities. RECTAL/GENITAL: Deferred. NEUROLOGICAL: No focal neurological abnormalities. With regard to neurological and orthopedic, please see the dictation from Dr. Rader. DIAGNOSTICS: His white count today is 15.6, H and H 11.6 and 35, platelet count 260,000. BUN and creatinine is 19 and 1.32. The patient was started on vancomycin, which was given once. Chest x-ray shows improved aeration, mild pulmonary vascular congestion, chronic left midclavicular fracture deformity. Surgical material is again seen projecting over the midline lower neck. IMPRESSION AND PLAN: The patient has probable infection of the psoas muscle and in the paraspinal area of L1 through L5. We should get a CT scan of the area and have Interventional Radiology evaluate for the possibility of aspirating the area in order to make a diagnosis. Ultimately, the patient may require further surgery. The patient was given vancomycin and aztreonam. I will hold off on antibiotics at this point. I will dictate my findings to Dr. Rader and also to Dr. Romero. Dictated By: Jaret Reid MD JD/pebbles/inocente /Document#: [id number]
[2016-10-22] MEDS ORDERED: OXYCODONE/ASPIRIN (4.88/325) TAB PO PRN (05:30)
[2016-10-22 06:33] LABS: BASOPHILS % 0.4 % (0.0-2.0); EOSINOPHILS # 0.3 10^3/ul (0.0-0.5); EOSINOPHILS % 2.6 % (0.0-7.0); HEMATOCRIT 31.4 % (42.0-52.0); HEMOGLOBIN 9.9 g/dl (14.0-18.0); LYMPHOCYTES # 1.8 10^3/ul (0.8-2.9); LYMPHOCYTES % 17.3 % (15.0-51.0); MEAN CORPUSCULAR HEMOGLOBIN 30.4 pg (29.0-33.0); MEAN CORPUSCULAR HGB CONC 31.5 g/dl (32.0-37.0); MEAN CORPUSCULAR VOLUME 96.3 fl (82.0-101.0); MEAN PLATELET VOLUME 10.6 fl (7.4-10.4); MONOCYTES % 9.6 % (0.0-11.0); NEUTROPHIL # 7.3 10^3/ul (1.6-7.5); NEUTROPHILS % 69.6 % (39.0-77.0); PLATELET COUNT 219 10^3/UL (140-415); RED BLOOD COUNT 3.26 10^6/ul (4.70-6.10); RED CELL DISTRIBUTION WIDTH 16.8 % (11.5-14.5); WHITE BLOOD COUNT 10.5 10^3/ul (4.8-10.8)
[2016-10-22 06:57] LABS: ALBUMIN 3.8 g/dl (3.3-4.9); ALBUMIN/GLOBULIN RATIO 1.22; BILIRUBIN,INDIRECT 0.2 mg/dl (0-1.1); BILIRUBIN,TOTAL 0.2 mg/dl (0.2-1.3); CALCIUM 10.2 mg/dl (8.4-10.2); CREATININE 1.1 mg/dl (0.61-1.24); POTASSIUM 4.1 mmol/L (3.5-5.1); TOTAL PROTEIN 6.9 g/dl (6.1-8.1)
[2016-10-22 07:31] VITALS: BP 149/82; RESP 18
[2016-10-22] MEDS: FAMOTIDINE 20 MG TAB PO SCH (08:42)
[2016-10-22] MEDS: LISINOPRIL 10 MG TAB PO SCH (08:42)
[2016-10-22] MEDS: ENOXAPARIN 40 MG/0.4 ML SYG SC SCH (08:43)
[2016-10-22] MEDS: PREGABALIN 75 MG CAP PO SCH (09:30)
[2016-10-22] MEDS: OXYCODONE/ASPIRIN (4.88/325) TAB PO PRN ×2 (09:56→17:20)
--- NOTE | 2016-10-22 10:27 | CONS ---
Date/Time of Note Date/Time of Note DATE: 10/22/16 TIME: 10:21 Consultation Date/Type/Reason Admit Date/Time October 21, 2016 Date of Consultation: Oct 22, 2016 Type of Consultation: Orthopedic surgery Reason for Consultation Back pain, possible spinal infection Referring Provider: TARAN ROMERO MD Hx of Present Illness This is a 71-year-old male well-known to me having undergone multilevel redo decompressive laminectomy from L1-L5 in June 2016 at [facility]. He underwent an outpatient MRI of the lumbar spine at [facility] in [facility] in the last couple of days , which was reviewed by Dr. Lianne Prince, and felt to be compatible with a quotation patel massive infection". Please see his admission of June 2016 for details regarding his lumbar surgery. The patient denies fevers chills sweats or drainage from his lumbar incision. Additional Comments The patient was admitted for evaluation and treatment of a suspected spinal infection by Dr. Romero, and was seen in consultation by Dr. Reid. He was given some antibiotics in the emergency room. He is scheduled for an MRI of the lumbar spine later today on a high-field strength magnet to better clarify the location of any infectious fluid collection. At this time, I do not anticipate the need for further orthopedic surgical intervention, however he may require a percutaneous vertebral body biopsy by interventional radiologist for aspiration of fluid collection if one is identified on the upcoming MRI scan. Social History Smoking Status: Never smoker Exam/Review of Systems Vital Signs Vitals Vital Signs Date Time Temp Pulse Resp B/P Pulse Ox O2 Delivery O2 Flow Rate FiO2 10/22/16 07:31 98.6 88 18 149/82 97 10/22/16 03:58 Room Air 10/21/16 17:00 2 Intake and Output 10/21/16 10/21/16 10/22/16 15:00 23:00 07:00 Intake Total 300 ml Balance 300 ml Results Result Diagram: 10/22/16 0554 10/22/16 0554 Results 24 hrs Laboratory Tests Test 10/21/16 16:40 10/21/16 17:15 10/21/16 18:05 10/21/16 20:57 White Blood Count 15.6 #H Red Blood Count 3.69 #L Hemoglobin 11.6 #L Hematocrit 35.0 #L Mean Corpuscular Volume 94.9 Mean Corpuscular Hemoglobin 31.4 Mean Corpuscular Hemoglobin Concent 33.1 Red Cell Distribution Width 16.9 H Platelet Count 260 Mean Platelet Volume 11.4 H Segmented Neutrophils % (Manual) 73 Lymphocytes % (Manual) 20 Monocytes % (Manual) 7 Nucleated Red Blood Cells % 0.0 Absolute Lymphocytes (Manual) 3.1 H Absolute Monocytes (Manual) 1.0 H Platelet Estimate NORMAL Prothrombin Time 12.6 Prothrombin Time Ratio 1.0 INR International Normalized Ratio 0.94 Activated Partial Thromboplast Time 20.0 L Sodium Level 142 Potassium Level 4.4 Chloride Level 105 Carbon Dioxide Level 22 Anion Gap 19 H Blood Urea Nitrogen 19 Creatinine 1.32 H Glucose Level 104 Lactic Acid Level 1.7 1.0 1.3 Calcium Level 10.4 H Total Bilirubin 0.1 L Direct Bilirubin 0.00 Indirect Bilirubin 0.1 Aspartate Amino Transf (AST/SGOT) 22 Alanine Aminotransferase (ALT/SGPT) 30 Alkaline Phosphatase 108 Troponin I < 0.012 Total Protein 7.8 Albumin 4.5 Globulin 3.30 H Albumin/Globulin Ratio 1.36 Urine Color STRAW Urine Clarity CLEAR Urine pH 7.0 Urine Specific [place] 1.005 Urine Ketones NEGATIVE Urine Nitrite NEGATIVE Urine Bilirubin NEGATIVE Urine Urobilinogen NEGATIVE Urine Leukocyte Esterase NEGATIVE Urine Hemoglobin NEGATIVE Urine Glucose NEGATIVE Urine Total Protein NEGATIVE Test 10/22/16 05:54 White Blood Count 10.5 # Red Blood Count 3.26 L Hemoglobin 9.9 L Hematocrit 31.4 L Mean Corpuscular Volume 96.3 Mean Corpuscular Hemoglobin 30.4 Mean Corpuscular Hemoglobin Concent 31.5 L Red Cell Distribution Width 16.8 H Platelet Count 219 Mean Platelet Volume 10.6 H Neutrophils % 69.6 Lymphocytes % 17.3 Monocytes % 9.6 Eosinophils % 2.6 Basophils % 0.4 Nucleated Red Blood Cells % 0.0 Neutrophils # 7.3 Lymphocytes # 1.8 Monocytes # 1.0 H Eosinophils # 0.3 Basophils # 0.0 Nucleated Red Blood Cells # 0.0 Erythrocyte Sedimentation Rate 13 Sodium Level 141 Potassium Level 4.1 Chloride Level 106 Carbon Dioxide Level 23 Anion Gap 16 Blood Urea Nitrogen 17 Creatinine 1.10 Glucose Level 108 Calcium Level 10.2 Total Bilirubin 0.2 Direct Bilirubin 0.00 Indirect Bilirubin 0.2 Aspartate Amino Transf (AST/SGOT) 18 Alanine Aminotransferase (ALT/SGPT) 24 Alkaline Phosphatase 89 C-Reactive Protein < 0.5 Total Protein 6.9 Albumin 3.8 Globulin 3.10 Albumin/Globulin Ratio 1.22 Medications Medications Current Medications Docusate Sodium (Colace) 100 mg Q12H PRN PO CONSTIPATION; Start 10/21/16 at 17: 30 Bisacodyl (Dulcolax Supp) 10 mg DAILY PRN [place] CONSTIPATION; Start 10/21/16 at 17 :30 Sodium Biphosphate/ Sodium Phosphate (Fleet Enema) 133 ml DAILY PRN [place] CONSTIPATION; Start 10/21/16 at 17:30 Famotidine (Pepcid) 20 mg DAILY PO Last administered on 10/22/16 08:42; Admin Dose 20 MG; Start 10/21/16 at 21:00 Enoxaparin Sodium (Lovenox) 40 mg DAILY SC ; Start 10/21/16 at 17:30 Lisinopril (Zestril) 10 mg QAM PO Last administered on 10/22/16 08:42; Admin Dose 10 MG; Start 10/22/16 at 09:00 [place] Carbonate ([place] Carbonate (Sr)) 600 mg QHS PO ; Start 10/21/16 at 21: 00 Pregabalin (Lyrica) 75 mg DAILY PO ; Start 10/22/16 at 09:30 Lorazepam (Ativan) 1 mg Q12 PRN PO ANXIETY; Start 10/22/16 at 09:30 Oxycodone/Aspirin (Percodan) 1 tab Q4H PRN PO PAIN Last administered on 09:56; Admin Dose 1 TAB; Start 10/22/16 at 10:00 MARU DOE MD Oct 22, 2016 10:27
[2016-10-22] MEDS: LORAZEPAM 1 MG TAB PO PRN (12:33)
[2016-10-22 14:00] VITALS: BP 175/81; RESP 18
[2016-10-22] MEDS ORDERED: HYDROmorphONE 1 MG/ML SYG IV ONE (14:00)
--- NOTE | 2016-10-22 15:16 | QN ---
Documentation Comment 71 year old man with: Patient with acute pain not responding to oral narcotic agents., and a possible spinal infection. Consultation will be postponed to later time as patient is currently off floor for MRI (second attempt). First attempt failed secondary to inability to keep still due to pain. In the meantime will add dilaudid IV 1mg Q8. MD CHERI Orr LINDA MD Oct 22, 2016 15:16
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
[2016-10-22] MEDS ORDERED: LORAZEPAM 1 MG TAB PO ONE (18:30)
[2016-10-22] MEDS: HYDROmorphONE 1 MG/ML SYG IV PRN (19:15)
[2016-10-22 20:00] VITALS: BP 110/57; PULSE 84; RESP 18
[2016-10-22] MEDS ORDERED: LORAZEPAM 1 MG TAB PO PRN (21:00)
[2016-10-22] MEDS: LITHIUM CARBONATE (SR) 300 MG TAB PO SCH (21:00)
[2016-10-22] MEDS ORDERED: LORAZEPAM 1 MG TAB PO SCH (21:00)
[2016-10-23] VITALS (7 sets, daily range): BP systolic 107–171; BP diastolic 53–103; PULSE 82–87; RESP 18–19
[2016-10-23] MEDS: LORAZEPAM 1 MG TAB PO PRN (00:40)
[2016-10-23] MEDS: OXYCODONE/ASPIRIN (4.88/325) TAB PO PRN ×5 (00:48→20:50)
[2016-10-23] MEDS: HYDROmorphONE 1 MG/ML SYG IV PRN ×2 (04:39→05:33)
[2016-10-23] MEDS ORDERED: PREGABALIN 75 MG CAP PO SCH (09:00)
[2016-10-23] MEDS: ENOXAPARIN 40 MG/0.4 ML SYG SC SCH (09:00)
[2016-10-23] MEDS: FAMOTIDINE 20 MG TAB PO SCH (09:39)
[2016-10-23] MEDS: LISINOPRIL 10 MG TAB PO SCH (09:41)
[2016-10-23] MEDS: PREGABALIN 75 MG CAP PO SCH (09:41)
--- NOTE | 2016-10-23 15:44 | PN ---
Date/Time of Note Date/Time of Note DATE: 10/23/16 TIME: 15:37 Assessment/Plan Lines/Catheters IV Catheter Type (from Nrs): Saline Lock Mahajan in Place (from Nrs): No Assessment/Plan Chief Complaint/Hosp Course This is a 71-year-old male well-known to me having undergone multilevel redo decompressive laminectomy from L1-L5 in June 2016 at [facility]. He underwent an outpatient MRI of the lumbar spine at [facility] in [facility] in the last couple of days , which was reviewed by Dr. Lianne Prince, and felt to be compatible with a quotation patel massive infection". Please see his admission of June 2016 for details regarding his lumbar surgery. Problems: Subjective 24 Hr Interval Summary Patient is resting comfortably today having attempted a lumbar MRI scan yesterday with Ativan and Dilaudid without success. The Dilaudid apparently made him somewhat disoriented, and he was contemplating leaving the hospital AGAINST MEDICAL ADVICE. His was able to get to the hospital and calm him down and he canceled his plans to leave the hospital. She told me by phone that a similar event had occurred following some knee surgery in the past when he received Dilaudid. His examination is unchanged neurovascular structures are intact distally I spoke with Dr. Flores (speech lang path of anesthesia department ) and he said that [facility] is not equipped to provide intravenous sedation to individuals undergoing magnetic resonance imaging scans. I will speak with him tomorrow regarding sedation options. I have also spoke with Dr. Reid's physician audiology assistant regarding possible anergy testing. Exam/Review of Systems Vital Signs Vitals Vital Signs Date Time Temp Pulse Resp B/P Pulse Ox O2 Delivery O2 Flow Rate FiO2 10/23/16 14:29 98.2 70 18 171/88 96 10/23/16 01:55 Room Air 10/21/16 17:00 2 Intake and Output 10/22/16 10/22/16 10/23/16 15:00 23:00 07:00 Intake Total 700 ml Balance 700 ml Results Result Diagram: 10/22/16 0554 10/22/16 0554 MARU DOE MD Oct 23, 2016 15:44
--- NOTE | 2016-10-23 18:41 | PN ---
DATE: 10/23/2016 SUBJECTIVE: No acute changes. The patient is awake, looks comfortable. No fevers. PHYSICAL EXAMINATION: GENERAL: Well developed, elderly man in no distress. HEENT: Head is atraumatic and normocephalic. Sclerae are anicteric. Buccal mucosa is dry. NECK: Supple. Trachea is midline. CHEST: Symmetrical, breath sounds clear. HEART: S1, S2. ABDOMEN: Soft. Bowel sounds are present. EXTREMITIES: Without cyanosis. ASSESSMENT: 1. Suspected spinal infection, MRI still pending. The patient did not tolerate MRI yesterday secondary to pain and despite given Ativan and Dilaudid. 2. History of multilevel redo decompressive laminectomy from L1- L5 in June 2016. 3. History of cervical spine osteomyelitis. 4. Hypertension. 5. Benign prostatic hyperplasia. 6. History of hepatitis C virus, status post [facility]. 7. Allergy to penicillin, sulfa, and Cipro. PLAN: The patient is clinically stable. He is off antibiotics. Plan to repeat spinal MRI with sedation. Plan to do CT guided fluid aspiration. Will order ESR, CRP, cocci serology, QuantiFeron-TB gold test for now. Dictated By: Latanya Chanel NP /pebbles/inocente /Document#: [id number] MARCELLO
[2016-10-23] MEDS: LITHIUM CARBONATE (SR) 300 MG TAB PO SCH (20:49)
[2016-10-23] MEDS: ZOLPIDEM 5 MG TAB PO PRN (23:25)
[2016-10-24] VITALS (9 sets, daily range): BP systolic 113–166; BP diastolic 70–95; PULSE 74–77; RESP 18–23
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
[2016-10-24] MEDS: OXYCODONE/ASPIRIN (4.88/325) TAB PO PRN ×3 (07:53→18:04)
[2016-10-24] MEDS: ENOXAPARIN 40 MG/0.4 ML SYG SC SCH (09:00)
[2016-10-24] MEDS ORDERED: MIDAZOLAM 1 MG/ML 2 ML INJ ONE ×5 (09:47)
[2016-10-24] MEDS ORDERED: FLUMAZENIL 0.5 MG INJ ONE (11:21)
[2016-10-24] MEDS: PREGABALIN 75 MG CAP PO SCH (12:32)
[2016-10-24] MEDS: FAMOTIDINE 20 MG TAB PO SCH (12:32)
[2016-10-24] MEDS: LISINOPRIL 10 MG TAB PO SCH (12:32)
--- NOTE | 2016-10-24 14:47 | PN ---
Date/Time of Note Date/Time of Note DATE: 10/24/16 TIME: 14:45 Assessment/Plan Lines/Catheters IV Catheter Type (from Nrsg): Saline Lock Mahajan in Place (from Nrsg): No Assessment/Plan Chief Complaint/Hosp Course This is a 71-year-old male well-known to me having undergone multilevel redo decompressive laminectomy from L1-L5 in June 2016 at [facility]. He underwent an outpatient MRI of the lumbar spine at [facility] in [facility] in the last couple of days , which was reviewed by Dr. Lianne Prince, and felt to be compatible with a quotation patel massive infection". Please see his admission of June 2016 for details regarding his lumbar surgery. Problems: Subjective 24 Hr Interval Summary The patient is recovering from anesthesia given for a lumbar MRI scan this morning which was not completed. The sagittal sequence shows the discitis and osteomyelitis at L2-3. Dr. Reid is scheduled to see the patient shortly and I will discuss management with him when he arrives. His examination is unchanged. A CT scan of the abdomen/pelvis may provide enough localizing detail to obtain a needle guided biopsy of his psoas fluid collections. Exam/Review of Systems Vital Signs Vitals Vital Signs Date Time Temp Pulse Resp B/P Pulse Ox O2 Delivery O2 Flow Rate FiO2 10/24/16 12:08 77 23 115/75 98 Room Air 10/24/16 11:19 98.6 10/21/16 17:00 2 Intake and Output 10/23/16 10/23/16 10/24/16 15:00 23:00 07:00 Intake Total 900 ml Balance 900 ml Results Result Diagram: 10/22/16 0554 10/22/16 0554 MARU DOE MD Oct 24, 2016 14:47
--- NOTE | 2016-10-24 14:56 | RADRPT ---
PROCEDURE: MRI lumbar spine without and with contrast CLINICAL INDICATION: Back pain TECHNIQUE: An high-resolution MRI of the lumbar spine was attempted, however, only a sagittal T1 a nd T2 to sequence were acquired. No Intravenous contrast was administered. The patient could not to lerate the complete study. COMPARISON: Correlation abdominal CT 08/21/2016 FINDINGS: No definite acute vertebral fracture. Laminectomy changes are evident L1-2 through L5-S1. Severe disk space narrowing L2-3 through L5-S1. Abnormal T2 signal within the posterior and right aspect of the L2-3 disk space with an 8 mm partial ly extruded disk osteophyte complex is identified. This results in narrowing of the ventral thecal sac. No definite high-grade spinal canal narrowing L1-2 or L3-4 through L5-S1. Foraminal narrowings are moderate to severe bilaterally L1-2, severe bilaterally L2-3, severe bilate rally L3-4, severe bilaterally L4-5, as severe bilaterally L5-S1. Severe multilevel facet arthropathy is seen. IMPRESSION: Abbreviated exam as the patient could not tolerate the complete study. Laminectomy changes are evident L1-2 through L5-S1. Severe disk discogenic and facet disease L2-3 through L5-S1. Abnormal T2 signal within the posterior and right aspect of the L2-3 disk space with an 8 mm partial ly extruded disk osteophyte complex is identified. The possibility of superimposed diskitis at this level is not excluded. There is narrowing of the ventral thecal sac at this level. No high-grade spinal canal narrowing at the remaining lumbar levels. Severe multilevel foraminal narrowing bilaterally. RPTAT: AA .Monroe Reardon MD, MD Date Time Electronically viewed and signed by .Monroe Reardon MD, MD on 10/24/2016 14:55 .T/
--- NOTE | 2016-10-24 15:13 | PN ---
Date/Time of Note Date/Time of Note DATE: 10/24/16 TIME: 15:10 Assessment/Plan Lines/Catheters IV Catheter Type (from Nrs): Saline Lock Mahajan in Place (from Nrs): No Assessment/Plan Chief Complaint/Hosp Course This is a 71-year-old male well-known to me having undergone multilevel redo decompressive laminectomy from L1-L5 in June 2016 at [facility]. He underwent an outpatient MRI of the lumbar spine at [facility] in [facility] in the last couple of days , which was reviewed by Dr. Lianne Prince, and felt to be compatible with a quotation patel massive infection". Please see his admission of June 2016 for details regarding his lumbar surgery. Problems: Subjective 24 Hr Interval Summary This is an addendum to my previous progress note. I spoke with Dr. Restrepo in radiology, and he felt that he could perform a CT-guided aspiration of the right so as muscle tomorrow. The patient had a CT scan at [facility] in August for suspected appendicitis, and a new CT scan was not felt to be necessary. The patient's situation was discussed with Dr. Reid and we are in agreement with the therapeutic plan. Exam/Review of Systems Vital Signs Vitals Vital Signs Date Time Temp Pulse Resp B/P Pulse Ox O2 Delivery O2 Flow Rate FiO2 10/24/16 12:08 77 23 115/75 98 Room Air 10/24/16 11:19 98.6 10/21/16 17:00 2 Intake and Output 10/23/16 10/23/16 10/24/16 15:00 23:00 07:00 Intake Total 900 ml Balance 900 ml Results Result Diagram: 10/22/16 0554 10/22/16 0554 MARU DOE MD Oct 24, 2016 15:13
--- NOTE | 2016-10-24 17:55 | PN ---
Date/Time of Note Date/Time of Note DATE: 10/24/16 TIME: 17:52 Assessment/Plan VTE Prophylaxis VTE Prophylaxis Intervention: ambulation Lines/Catheters IV Catheter Type (from Nrsg): Saline Lock Urinary Cath still in place: No Subjective 24 Hr Interval Summary Free Text/Dictation the recent events noted. will undergo bx, aspiration for culture of affected disc space tomorrow afebrile, wbc is down, no chills or othe systemic symptoms. does have a sense of weakness and shooting pains into rt leg good lower extremity strength rt leg, neg slr Neurologic: other (radicular pains into rt leg) Exam/Review of Systems Vital Signs Vitals Vital Signs Date Time Temp Pulse Resp B/P Pulse Ox O2 Delivery O2 Flow Rate FiO2 10/24/16 14:54 98.5 112 18 166/95 97 10/24/16 12:08 Room Air 10/21/16 17:00 2 Intake and Output 10/23/16 10/23/16 10/24/16 15:00 23:00 07:00 Intake Total 900 ml Balance 900 ml Results Result Diagram: 10/22/16 0554 10/22/16 0554 Medications Medications Current Medications Docusate Sodium (Colace) 100 mg Q12H PRN PO CONSTIPATION; Start 10/21/16 at 17: 30 Bisacodyl (Dulcolax Supp) 10 mg DAILY PRN [place] CONSTIPATION; Start 10/21/16 at 17 :30 Sodium Biphosphate/ Sodium Phosphate (Fleet Enema) 133 ml DAILY PRN [place] CONSTIPATION; Start 10/21/16 at 17:30 Famotidine (Pepcid) 20 mg DAILY PO Last administered on 10/24/16 12:32; Admin Dose 20 MG; Start 10/21/16 at 21:00 Enoxaparin Sodium (Lovenox) 40 mg DAILY SC ; Start 10/21/16 at 17:30 Lisinopril (Zestril) 10 mg QAM PO Last administered on 10/24/16 12:32; Admin Dose 10 MG; Start 10/22/16 at 09:00 [place] Carbonate ([place] Carbonate (Sr)) 600 mg QHS PO ; Start 10/21/16 at 21: 00 Pregabalin (Lyrica) 75 mg DAILY PO Last administered on 8/14/17at 12:32; Admin Dose 75 MG; Start 10/22/16 at 09:30 Lorazepam (Ativan) 1 mg Q12 PRN PO ANXIETY Last administered on 10/23/16 00:40 ; Admin Dose 1 MG; Start 10/22/16 at 09:30 Oxycodone/Aspirin (Percodan) 1 tab Q4H PRN PO PAIN Last administered on 14:02; Admin Dose 1 TAB; Start 10/22/16 at 10:00 Zolpidem Tartrate (Ambien) 10 mg HS PRN PO INSOMNIA Last administered on 23:25; Admin Dose 10 MG; Start 10/23/16 at 23:30 Miscellaneous Information (*Order Clarification Bulletin) MEDICATION REQUIRES CLARIFICATI... Q8H XX ; Start 10/24/16 at 05:30 ALMAZ SANTIAGO MD Oct 24, 2016 17:55
[2016-10-24] MEDS: [UNRECOGNIZED DRUG - REMARK] XX SCH ×2 (18:54→21:30)
[2016-10-24] MEDS ORDERED: OXYCODONE/ASPIRIN (4.88/325) TAB PO ONE (20:30)
[2016-10-24] MEDS: LITHIUM CARBONATE (SR) 300 MG TAB PO SCH (21:24)
[2016-10-24] MEDS: ZOLPIDEM 5 MG TAB PO PRN (22:46)
[2016-10-25] VITALS (15 sets, daily range): BP systolic 107–175; BP diastolic 58–95; PULSE 84–96; RESP 15–24
--- NOTE | 2016-10-25 03:38 | PN ---
DATE: 10/24/2016 INFECTIOUS DISEASE PROGRESS NOTE SUBJECTIVE DATA: No acute changes. The patient is alert, feels good, looks comfortable. No fevers. LABORATORY AND DIAGNOSTIC DATA: He had an MRI this morning that revealed severe discogenic and facet disease through L2-L3 through L5-S1, abnormal T2 signal within the posterior and the right aspect of the L2-L3 disc space with an 8-mm partially extruded disc osteophyte complex identified. Possibility of superimposed discitis at this level is not excluded. ALLERGIES: PENICILLIN, SULFA, AND CIPRO. OBJECTIVE DATA: VITAL SIGNS: Temperature 98.6, pulse 77, respirations 20, blood pressure 121/78, saturation 94 percent on room air. GENERAL: This is a well-developed elderly man who is alert, in no distress. HEENT: Head atraumatic, normocephalic. Sclerae anicteric. Buccal mucosa pink. NECK: Supple. CHEST: Rise symmetrical. Breath sounds clear. HEART: S1, S2. ABDOMEN: Soft. Bowel sounds present. EXTREMITIES: Without cyanosis or edema. ASSESSMENT: 1. Suspected discitis and osteomyelitis at L2-L3 level. 2. Status post multilevel redo decompressive laminectomy in June 2016. 3. History of bipolar disorder. 4. History of cervical spine osteomyelitis. 5. Hepatitis C virus. Status post Harvoni. PLAN: The patient had QuantiFERON TB gold test serologies sent today. We will also send serology for cocci and cryptococcal antigen. We will check procalcitonin level. His ESR and CRP yesterday which were essentially within normal limits. We will discuss if the patient can have a CT-guided needle aspiration of the spinal area. We will discuss with Dr. Jaret Reid further management in regards to antibiotics. Dictated By: Zenobia Chanel NP /pebbles/ruddy /Document#: [id number] MARCELLO
[2016-10-25] MEDS: [UNRECOGNIZED DRUG - REMARK] XX SCH ×2 (05:30→13:30)
[2016-10-25] MEDS: OXYCODONE/ASPIRIN (4.88/325) TAB PO PRN (05:57)
[2016-10-25 06:21] LABS: BASOPHILS % 0.4 % (0.0-2.0); EOSINOPHILS # 0.4 10^3/ul (0.0-0.5); EOSINOPHILS % 3.1 % (0.0-7.0); HEMATOCRIT 31.5 % (42.0-52.0); HEMOGLOBIN 10.2 g/dl (14.0-18.0); LYMPHOCYTES # 1.8 10^3/ul (0.8-2.9); LYMPHOCYTES % 16.1 % (15.0-51.0); MEAN CORPUSCULAR HGB CONC 32.4 g/dl (32.0-37.0); MEAN CORPUSCULAR VOLUME 95.7 fl (82.0-101.0); MEAN PLATELET VOLUME 10.5 fl (7.4-10.4); MONOCYTE # 1.1 10^3/ul (0.3-0.9); MONOCYTES % 10.1 % (0.0-11.0); NEUTROPHILS % 69.5 % (39.0-77.0); PLATELET COUNT 247 10^3/UL (140-415); RED BLOOD COUNT 3.29 10^6/ul (4.70-6.10); RED CELL DISTRIBUTION WIDTH 16.7 % (11.5-14.5); WHITE BLOOD COUNT 11.2 10^3/ul (4.8-10.8)
[2016-10-25 06:52] LABS: CALCIUM 10.5 mg/dl (8.4-10.2); CREATININE 1.22 mg/dl (0.61-1.24)
--- NOTE | 2016-10-25 07:11 | PN ---
Date/Time of Note Date/Time of Note DATE: 10/25/16 TIME: 07:10 Assessment/Plan Lines/Catheters IV Catheter Type (from Nrs): Saline Lock Mahajan in Place (from Nrsg): No Assessment/Plan Chief Complaint/Hosp Course This is a 71-year-old male well-known to me having undergone multilevel redo decompressive laminectomy from L1-L5 in June 2016 at [facility]. He underwent an outpatient MRI of the lumbar spine at [facility] in [facility] in the last couple of days , which was reviewed by Dr. Lianne Prince, and felt to be compatible with a quotation patel massive infection". Please see his admission of June 2016 for details regarding his lumbar surgery. Problems: Subjective 24 Hr Interval Summary The patient is resting comfortably in bed, and is afebrile. Neurovascular structures are intact distally. He is scheduled for a CT-guided aspiration of a fluid collection along the right psoas muscle this morning. I have spoken with anesthesia and they will be available to assist. No further intervention is planned at this time. Exam/Review of Systems Vital Signs Vitals Vital Signs Date Time Temp Pulse Resp B/P Pulse Ox O2 Delivery O2 Flow Rate FiO2 10/25/16 02:26 98.0 73 20 118/63 94 10/24/16 12:08 Room Air 10/21/16 17:00 2 Intake and Output 10/24/16 10/24/16 10/25/16 15:00 23:00 07:00 Intake Total 800 ml 1040 ml Balance 800 ml 1040 ml Results Result Diagram: 10/25/16 0548 10/25/16 0548 MARU DOE MD Oct 25, 2016 07:11
[2016-10-25] MEDS: FAMOTIDINE 20 MG TAB PO SCH (09:00)
[2016-10-25] MEDS: ENOXAPARIN 40 MG/0.4 ML SYG SC SCH (09:00)
[2016-10-25] MEDS: PREGABALIN 75 MG CAP PO SCH (09:00)
[2016-10-25] MEDS: LISINOPRIL 10 MG TAB PO SCH (09:00)
[2016-10-25] MEDS ORDERED: morphine 2 MG INJ IV ONE (10:30)
[2016-10-25] MEDS: morphine 2 MG INJ IV PRN ×3 (11:34→20:47)
--- NOTE | 2016-10-25 12:02 | PN ---
Date/Time of Note Date/Time of Note DATE: 10/25/16 TIME: 11:57 Assessment/Plan VTE Prophylaxis VTE Prophylaxis Intervention: ambulation Lines/Catheters IV C[facility]ter Type [facility]from [facility] Saline Lock Urinary Cath still in place: No Assessment/Plan Problems: (1) Chemical dependency Status: Chronic Comment: Patient has history of prior dependency issues. When situation where he has pain a legitimate pain and therefore most, with a legitimate way of managing this. Confounding the issue is he is receiving pain medications from his primary care physician at the [facility] Dr. Arthur; his private psychiatrist as an outpatient Dr. Darius Dobbins; and whatever other sources. While is in the hospital we can work with him more specifically. He does identify that he was given MS Contin by Dr. Arthur from the [place] [facility] and had actually had a good outcome with this. I will actually use this while as an inpatient to decrease the other medications. (2) Essential hypertension Status: Chronic Comment: He is stable on medication (3) Bipolar affective disorder Status: Chronic Comment: He is on his medications however his control is fair. This is a combination of his pain is chronic pain syndrome his chemical dependency and the underlying psychiatric disorder. His outpatient psychiatrist does not come to this facility. Qualifiers: Active/Remission status: currently active Current bipolar episode type: mixed Current episode severity: moderate Qualified Code: F31.62 - Bipolar disorder, current episode mixed, moderate (4) Discitis of lumbar region Status: Chronic Comment: He is scheduled for biopsy under CT guidance today. (5) Status post lumbar spine surgery for decompression of spinal cord Status: Acute Comment: As per Dr. Rader. Subjective 24 Hr Interval Summary Free Text/Dictation Patient reports that with usage of the morphine sulfate his pain is under better control. Is not having any reactions or incoherency. Constitutional: no complaints (Denies fevers chills or sweats) Eyes: no complaints Respiratory: no complaints Cardiovascular: no complaints (Denies chest pain palpitation PND orthopnea) Gastrointestinal: no complaints (Denies abdominal pain nausea vomiting diarrhea or constipation) Genitourinary: no complaints Musculoskeletal: back pain Exam/Review of Systems Vital Signs Vitals Vital Signs Date Time Temp Pulse Resp B/P Pulse Ox O2 Delivery O2 Flow Rate FiO2 10/25/16 07:52 98.0 62 20 107/58 100 10/24/16 12:08 Room Air 10/21/16 17:00 2 Intake and Output 10/24/16 10/24/16 10/25/16 15:00 23:00 07:00 Intake Total 800 ml 1040 ml Balance 800 ml 1040 ml Exam male dressed in street clothes walking around the room and the nursing station. Constitutional: alert, oriented Neck: non-tender, supple Respiratory: clear to auscultation, normal air movement Cardiovascular: nl pulses, regular rate and rhythm Gastrointestinal: nl liver, spleen, non-tender, soft Neurological: ACCOUNT EXECUTIVE TRAINEE II-XII intact, nl mental status, nl speech (Please note he has push of speech and modest flight of ideas), nl strength Results Result Diagram: 10/25/16 0548 10/25/16 0548 Results 24 hrs Laboratory Tests Test 10/25/16 05:48 White Blood Count 11.2 H Red Blood Count 3.29 L Hemoglobin 10.2 L Hematocrit 31.5 L Mean Corpuscular Volume 95.7 Mean Corpuscular Hemoglobin 31.0 Mean Corpuscular Hemoglobin Concent 32.4 Red Cell Distribution Width 16.7 H Platelet Count 247 Mean Platelet Volume 10.5 H Neutrophils % 69.5 Lymphocytes % 16.1 Monocytes % 10.1 Eosinophils % 3.1 Basophils % 0.4 Nucleated Red Blood Cells % 0.0 Neutrophils # (Manual) 7.8 H Lymphocytes # 1.8 Monocytes # 1.1 H Eosinophils # 0.4 Basophils # 0.0 Nucleated Red Blood Cells # 0.0 Erythrocyte Sedimentation Rate 12 Sodium Level 142 Potassium Level 4.0 Chloride Level 106 Carbon Dioxide Level 23 Anion Gap 17 H Blood Urea Nitrogen 23 H Creatinine 1.22 Glucose Level 110 Calcium Level 10.5 H Medications Medications Current Medications Docusate Sodium (Colace) 100 mg Q12H PRN PO CONSTIPATION; Start 10/21/16 at 17: 30 Bisacodyl (Dulcolax Supp) 10 mg DAILY PRN [place] CONSTIPATION; Start 10/21/16 at 17 :30 Sodium Biphosphate/ Sodium Phosphate (Fleet Enema) 133 ml DAILY PRN [place] CONSTIPATION; Start 10/21/16 at 17:30 Famotidine (Pepcid) 20 mg DAILY PO Last administered on 10/24/16t 12:32; Admin Dose 20 MG; Start 10/21/16 at 21:00 Enoxaparin Sodium (Lovenox) 40 mg DAILY SC ; Start 10/21/16 at 17:30 Lisinopril (Zestril) 10 mg QAM PO Last administered on 10/24/16 12:32; Admin Dose 10 MG; Start 10/22/16 at 09:00 [place] Carbonate ([place] Carbonate (Sr)) 600 mg QHS PO Last administered on 21:24; Admin Dose 600 MG; Start 10/21/16 at 21:00 Pregabalin (Lyrica) 75 mg DAILY PO Last administered on 10/24/16 12:32; Admin Dose 75 MG; Start 10/22/16 at 09:30 Lorazepam (Ativan) 1 mg Q12 PRN PO ANXIETY Last administered on 10/23/16 00:40 ; Admin Dose 1 MG; Start 10/22/16 at 09:30 Oxycodone/Aspirin (Percodan) 1 tab Q4H PRN PO PAIN Last administered on 05:57; Admin Dose 1 TAB; Start 10/22/16 at 10:00 Zolpidem Tartrate (Ambien) 10 mg HS PRN PO INSOMNIA Last administered on 22:46; Admin Dose 10 MG; Start 10/23/16 at 23:30 Miscellaneous Information (*Order Clarification Bulletin) MEDICATION REQUIRES CLARIFICATI... Q8H XX ; Start 10/24/16 at 05:30 Morphine Sulfate (morphine) 2 mg Q2H PRN IV PAIN Last administered on 11:34; Admin Dose 2 MG; Start 10/25/16 at 10:30 TARAN WANG MD Oct 25, 2016 12:02
[2016-10-25] MEDS ORDERED: LIDOCAINE 1% (MDV) 20 ML INJ ONE (13:00)
[2016-10-25] MEDS ORDERED: LIDOCAINE 1% (MPF) 5 ML VIAL ONE (13:23)
[2016-10-25] MEDS ORDERED: FENTAnyl 50 MCG/ML VIAL ONE ×6 (13:24→14:15)
[2016-10-25] MEDS ORDERED: PROPOFOL 20 ML ONE (13:24)
[2016-10-25] MEDS: morphine (ER) 15 MG TAB PO SCH ×2 (14:00→22:33)
[2016-10-25] MEDS ORDERED: PROPOFOL 60 ML ONE (14:14)
[2016-10-25] MEDS ORDERED: MIDAZOLAM 1 MG/ML 2 ML INJ ONE (14:15)
--- NOTE | 2016-10-25 15:56 | CONS ---
Date/Time of Note Date/Time of Note DATE: 10/25/16 TIME: 15:54 Assessment/Plan Assessment/Plan Chief Complaint/Hosp Course SUBJECTIVE DATA: No acute changes. The patient is alert, feels good, looks comfortable. No fevers. ALLERGIES: PENICILLIN, SULFA, AND CIPRO. GENERAL: This is a well-developed elderly man who is alert, in no distress. HEENT: Head atraumatic, normocephalic. Sclerae anicteric. Buccal mucosa pink. NECK: Supple. CHEST: Rise symmetrical. Breath sounds clear. HEART: S1, S2. ABDOMEN: Soft. Bowel sounds present. EXTREMITIES: Without cyanosis or edema. ASSESSMENT: 1. Suspected discitis and osteomyelitis at L2-L3 level. 2. Status post multilevel redo decompressive laminectomy in June 2016. 3. History of bipolar disorder. 4. History of cervical spine osteomyelitis. 5. Hepatitis C virus. Status post Harvoni. PLAN: Stable, scheduled for a CT-guided aspiration of a fluid collection along the right psoas muscle this morning, observe off abx DW staff/pt Problems: Consultation Date/Type/Reason Admit Date/Time Oct 21, 2016 at 16:52 Initial Consult Date 10/22/16 Type of Consultation: ID Referring Provider: TARAN WANG MD Exam/Review of Systems Vital Signs Vitals Vital Signs Date Time Temp Pulse Resp B/P Pulse Ox O2 Delivery O2 Flow Rate FiO2 10/25/16 07:52 98.0 62 20 107/58 100 10/24/16 12:08 Room Air 10/21/16 17:00 2 Intake and Output 10/24/16 10/24/16 10/25/16 15:00 23:00 07:00 Intake Total 800 ml 1040 ml Balance 800 ml 1040 ml Results Result Diagram: 10/25/16 0548 10/25/16 0548 Results 24 hrs Laboratory Tests Test 10/25/16 05:48 White Blood Count 11.2 H Red Blood Count 3.29 L Hemoglobin 10.2 L Hematocrit 31.5 L Mean Corpuscular Volume 95.7 Mean Corpuscular Hemoglobin 31.0 Mean Corpuscular Hemoglobin Concent 32.4 Red Cell Distribution Width 16.7 H Platelet Count 247 Mean Platelet Volume 10.5 H Neutrophils % 69.5 Lymphocytes % 16.1 Monocytes % 10.1 Eosinophils % 3.1 Basophils % 0.4 Nucleated Red Blood Cells % 0.0 Neutrophils # (Manual) 7.8 H Lymphocytes # 1.8 Monocytes # 1.1 H Eosinophils # 0.4 Basophils # 0.0 Nucleated Red Blood Cells # 0.0 Erythrocyte Sedimentation Rate 12 Sodium Level 142 Potassium Level 4.0 Chloride Level 106 Carbon Dioxide Level 23 Anion Gap 17 H Blood Urea Nitrogen 23 H Creatinine 1.22 Glucose Level 110 Calcium Level 10.5 H Medications Medications Current Medications Docusate Sodium (Colace) 100 mg Q12H PRN PO CONSTIPATION; Start 10/21/16 at 17: 30 Bisacodyl (Dulcolax Supp) 10 mg DAILY PRN [place] CONSTIPATION; Start 10/21/16 at 17 :30 Sodium Biphosphate/ Sodium Phosphate (Fleet Enema) 133 ml DAILY PRN [place] CONSTIPATION; Start 10/21/16 at 17:30 Famotidine (Pepcid) 20 mg DAILY PO Last administered on 10/24/16 12:32; Admin Dose 20 MG; Start 10/21/16 at 21:00 Enoxaparin Sodium (Lovenox) 40 mg DAILY SC ; Start 10/21/16 at 17:30 Lisinopril (Zestril) 10 mg QAM PO Last administered on 10/24/16 12:32; Admin Dose 10 MG; Start 10/22/16 at 09:00 [place] Carbonate ([place] Carbonate (Sr)) 600 mg QHS PO Last administered on 21:24; Admin Dose 600 MG; Start 10/21/16 at 21:00 Pregabalin (Lyrica) 75 mg DAILY PO Last administered on 10/24/16 12:32; Admin Dose 75 MG; Start 10/22/16 at 09:30 Lorazepam (Ativan) 1 mg Q12 PRN PO ANXIETY Last administered on 10/23/16 00:40 ; Admin Dose 1 MG; Start 10/22/16 at 09:30 Zolpidem Tartrate (Ambien) 10 mg HS PRN PO INSOMNIA Last administered on 22:46; Admin Dose 10 MG; Start 10/23/16 at 23:30 Miscellaneous Information (*Order Clarification Bulletin) MEDICATION REQUIRES CLARIFICATI... Q8H XX ; Start 10/24/16 at 05:30 Morphine Sulfate (morphine) 2 mg Q2H PRN IV PAIN Last administered on t 11:34; Admin Dose 2 MG; Start 10/25/16 at 10:30 Oxycodone/Aspirin (Percodan) 1 tab Q6 PRN PO PAIN; Start 10/25/16 at 18:00 Morphine Sulfate (Ms Contin (Er)) 15 mg Q8 PO ; Start 10/25/16 at 14:00 EDITH MCCOY NP Oct 25, 2016 15:56
--- NOTE | 2016-10-25 16:07 | RADRPT ---
PROCEDURE: CT-guided aspiration of fluid from a psoas collection CLINICAL INDICATION: Diskitis osteomyelitis TECHNIQUE: Informed consent was obtained from the patient following careful explanation of the risks and benefi ts of the procedure. The procedure was performed under general anesthesia. The patient was placed left lateral decubitus on the CT table and multiple axial images were obtaine d through the lumbar spine. A site in the patient's skin was selected and marked. The area was prep ped and draped in the usual sterile fashion. 1% lidocaine with lidocaine was utilized for local anes thesia. Under direct CT guidance, a 20 Ga needle was advanced into the protruded disk at the L2-3 level on t he right. 3 cc of fluid was injected and then re-aspirated. The fluid was placed in a vial. Under direct CT guidance, a 20-gauge needle was then advanced into the right psoas muscle at a slightly l ower level by approximately 2 cm. 3 cc of fluid was again injected and then re-aspirated. The flui d was placed within the same of vial. The fluid was submitted for culture and sensitivity including fundal and AFB. The patient tolerated the procedure well. COMPARISON: None FINDINGS: As above. IMPRESSION: CT guided bone aspiration of fluid from the L2-3 disk space, to the right of midline in the psoas mu scle. RPTAT: AA Physician Rubin Date Time Electronically viewed and signed by Physician Rubin on 10/25/2016 16:06 /
[2016-10-25] MEDS: LITHIUM CARBONATE (SR) 300 MG TAB PO SCH (20:46)
[2016-10-25] MEDS ORDERED: ONDANSETRON 4 MG INJ IV PRN (22:00)
[2016-10-25] MEDS: LITHIUM CARBONATE 300 MG PO SCH (22:33)
[2016-10-26] MEDS: morphine 2 MG INJ IV PRN ×8 (00:08→23:57)
[2016-10-26] MEDS: ZOLPIDEM 5 MG TAB PO PRN (00:08)
[2016-10-26 02:00] VITALS: BP 129/73; RESP 20
[2016-10-26] MEDS: morphine (ER) 15 MG TAB PO SCH ×3 (05:33→22:00)
[2016-10-26 07:25] VITALS: BP 178/104; RESP 18
--- NOTE | 2016-10-26 07:42 | PN ---
Date/Time of Note Date/Time of Note DATE: 10/26/16 TIME: 07:40 Assessment/Plan Lines/Catheters IV Catheter Type (from Nrs): Saline Lock Mahajan in Place (from Nrsg): No Assessment/Plan Chief Complaint/Hosp Course This is a 71-year-old male well-known to me having undergone multilevel redo decompressive laminectomy from L1-L5 in June 2016 at [facility]. He underwent an outpatient MRI of the lumbar spine at [facility] in [facility] in the last couple of days , which was reviewed by Dr. Lianne Prince, and felt to be compatible with a quotation patel massive infection". Please see his admission of June 2016 for details regarding his lumbar surgery. Problems: Subjective 24 Hr Interval Summary The patient is postop day #[address]-guided aspiration of a psoas abscess on the right and a discitis at L2-3 on the right. He is resting comfortably neurovascular structures are intact distally. He is afebrile, and his lab work is unremarkable from yesterday. Rafael's stain and culture are pending on the specimen. Exam/Review of Systems Vital Signs Vitals Vital Signs Date Time Temp Pulse Resp B/P Pulse Ox O2 Delivery O2 Flow Rate FiO2 10/26/16 07:25 98.9 80 18 178/104 98 10/25/16 17:15 Nasal Cannula 10/25/16 16:25 2.0 Intake and Output 10/25/16 10/25/16 10/26/16 15:00 23:00 07:00 Intake Total 0 ml 550 ml Output Total 0 ml Balance 0 ml 550 ml Results Result Diagram: 10/25/16 0548 10/25/16 0548 MARU DOE MD Oct 26, 2016 07:42
[2016-10-26] MEDS: LISINOPRIL 10 MG TAB PO SCH (09:00)
[2016-10-26] MEDS: ENOXAPARIN 40 MG/0.4 ML SYG SC SCH (09:00)
[2016-10-26] MEDS: PREGABALIN 75 MG CAP PO SCH (09:00)
[2016-10-26] MEDS: OXYCODONE/ASPIRIN (4.88/325) TAB PO PRN (11:08)
[2016-10-26] MEDS: FAMOTIDINE 20 MG TAB PO SCH (11:08)
[2016-10-26 14:00] VITALS: BP 143/87; RESP 18
--- NOTE | 2016-10-26 15:36 | CONS ---
Date/Time of Note Date/Time of Note DATE: 10/26/16 TIME: 15:33 Assessment/Plan Assessment/Plan Chief Complaint/Hosp Course SUBJECTIVE DATA: No acute changes. The patient is alert, c/o back pain, no fevers, nad ALLERGIES: PENICILLIN, SULFA, AND CIPRO. GENERAL: This is a well-developed, wasted elderly man who is alert, in no distress. HEENT: Head atraumatic, normocephalic. Sclerae anicteric. Buccal mucosa pink. NECK: Supple. CHEST: Rise symmetrical. Breath sounds clear. HEART: S1, S2. ABDOMEN: Soft. Bowel sounds present. EXTREMITIES: Without cyanosis or edema. ASSESSMENT: 1. Suspected discitis and osteomyelitis at L2-L3 level, s/ CT-guided aspiration 10/25/16, cx's preliminary negative, procalcitonin <0.1 2. Status post multilevel redo decompressive laminectomy in June 2016. 3. History of bipolar disorder. 4. History of cervical spine osteomyelitis. 5. Hepatitis C virus. Status post Harvoni. PLAN: Remains stable, pending final cx and GS, observe off abx, ortho rec-s noted DW /pt Problems: Consultation Date/Type/Reason Admit Date/Time Oct 21, 2016 at 16:52 Initial Consult Date 10/22/16 Type of Consultation: ID Referring Provider: TARAN WANG MD Exam/Review of Systems Vital Signs Vitals Vital Signs Date Time Temp Pulse Resp B/P Pulse Ox O2 Delivery O2 Flow Rate FiO2 10/26/16 07:25 98.9 80 18 178/104 98 10/25/16 17:15 Nasal Cannula 10/25/16 16:25 2.0 Intake and Output 10/25/16 10/25/16 10/26/16 15:00 23:00 07:00 Intake Total 0 ml 550 ml Output Total 0 ml Balance 0 ml 550 ml Results Result Diagram: 10/25/16 0548 10/25/16 0548 Medications Medications Current Medications Docusate Sodium (Colace) 100 mg Q12H PRN PO CONSTIPATION; Start 10/21/16 at 17: 30 Bisacodyl (Dulcolax Supp) 10 mg DAILY PRN [place] CONSTIPATION; Start 10/21/16 at 17 :30 Sodium Biphosphate/ Sodium Phosphate (Fleet Enema) 133 ml DAILY PRN [place] CONSTIPATION; Start 10/21/16 at 17:30 Famotidine (Pepcid) 20 mg DAILY PO Last administered on 10/26/16 11:08; Admin Dose 20 MG; Start 10/21/16 at 21:00 Enoxaparin Sodium (Lovenox) 40 mg DAILY SC ; Start 10/21/16 at 17:30 Lisinopril (Zestril) 10 mg QAM PO Last administered on 10/24/16 12:32; Admin Dose 10 MG; Start 10/22/16 at 09:00 Pregabalin (Lyrica) 75 mg DAILY PO Last administered on 10/24/16 12:32; Admin Dose 75 MG; Start 10/22/16 at 09:30 Lorazepam (Ativan) 1 mg Q12 PRN PO ANXIETY Last administered on 10/23/16 00:40 ; Admin Dose 1 MG; Start 10/22/16 at 09:30 Zolpidem Tartrate (Ambien) 10 mg HS PRN PO INSOMNIA Last administered on 00:08; Admin Dose 10 MG; Start 10/23/16 at 23:30 Morphine Sulfate (morphine) 2 mg Q2H PRN IV PAIN Last administered on 15:24; Admin Dose 2 MG; Start 10/25/16 at 10:30 Oxycodone/Aspirin (Percodan) 1 tab Q6 PRN PO PAIN Last administered on 11:08; Admin Dose 1 TAB; Start 10/25/16 at 18:00 Morphine Sulfate (Ms Contin (Er)) 15 mg Q8 PO Last administered on 10/26/16 14 :00; Admin Dose 15 MG; Start 10/25/16 at 14:00 Ondansetron HCl (Zofran Inj) 4 mg Q4H PRN IV NAUSEA AND/OR VOMITING Last administered on 10/26/16 11:08; Admin Dose 4 MG; Start 10/25/16 at 22:00 Patient Own Medication 2 ea QHS PO Last administered on 10/25/16 22:33; Admin Dose 2 EA; Start 10/25/16 at 22:04 EDITH MCCOY NP Oct 26, 2016 15:36
--- NOTE | 2016-10-26 16:45 | PN ---
Date/Time of Note Date/Time of Note DATE: 10/26/16 TIME: 16:39 Assessment/Plan VTE Prophylaxis VTE Prophylaxis Intervention: anti-embolic stocking (refused lovenox today) Lines/Catheters IV Catheter Type (from Nrs): Saline Lock Urinary Cath still in place: No Subjective 24 Hr Interval Summary Free Text/Dictation post aspiration lumbar disc space and psoas, initial stain negative, culture no growth to this point afebrile, labs stable he notes bilat upper abd cramp, pain after walks a ways on [place], needs to stop?? radicular otherwise no complaints is somewhat depressed as well on exam alert, lungs clear, hr nl, no murmur heard. no edema stooped gait, stance Musculoskeletal: back pain Exam/Review of Systems Vital Signs Vitals Vital Signs Date Time Temp Pulse Resp B/P Pulse Ox O2 Delivery O2 Flow Rate FiO2 10/26/16 14:00 98.4 73 18 143/87 98 10/25/16 17:15 Nasal Cannula 10/25/16 16:25 2.0 Intake and Output 10/25/16 10/25/16 10/26/16 15:00 23:00 07:00 Intake Total 0 ml 550 ml Output Total 0 ml Balance 0 ml 550 ml Results Result Diagram: 10/25/16 0548 10/25/16 0548 Medications Medications Current Medications Docusate Sodium (Colace) 100 mg Q12H PRN PO CONSTIPATION; Start 10/21/16 at 17: 30 Bisacodyl (Dulcolax Supp) 10 mg DAILY PRN [place] CONSTIPATION; Start 10/21/16 at 17 :30 Sodium Biphosphate/ Sodium Phosphate (Fleet Enema) 133 ml DAILY PRN [place] CONSTIPATION; Start 10/21/16 at 17:30 Famotidine (Pepcid) 20 mg DAILY PO Last administered on 10/26/16 11:08; Admin Dose 20 MG; Start 10/21/16 at 21:00 Enoxaparin Sodium (Lovenox) 40 mg DAILY SC ; Start 10/21/16 at 17:30 Lisinopril (Zestril) 10 mg QAM PO Last administered on 10/24/16 12:32; Admin Dose 10 MG; Start 10/22/16 at 09:00 Pregabalin (Lyrica) 75 mg DAILY PO Last administered on 10/24/16 12:32; Admin Dose 75 MG; Start 10/22/16 at 09:30 Lorazepam (Ativan) 1 mg Q12 PRN PO ANXIETY Last administered on 10/23/16 00:40 ; Admin Dose 1 MG; Start 10/22/16 at 09:30 Zolpidem Tartrate (Ambien) 10 mg HS PRN PO INSOMNIA Last administered on 00:08; Admin Dose 10 MG; Start 10/23/16 at 23:30 Morphine Sulfate (morphine) 2 mg Q2H PRN IV PAIN Last administered on 15:24; Admin Dose 2 MG; Start 10/25/16 at 10:30 Oxycodone/Aspirin (Percodan) 1 tab Q6 PRN PO PAIN Last administered on 11:08; Admin Dose 1 TAB; Start 10/25/16 at 18:00 Morphine Sulfate (Ms Contin (Er)) 15 mg Q8 PO Last administered on 10/26/16 14 :00; Admin Dose 15 MG; Start 10/25/16 at 14:00 Ondansetron HCl (Zofran Inj) 4 mg Q4H PRN IV NAUSEA AND/OR VOMITING Last administered on 10/26/16 11:08; Admin Dose 4 MG; Start 10/25/16 at 22:00 Patient Own Medication 2 ea QHS PO Last administered on 10/25/16 22:33; Admin Dose 2 EA; Start 10/25/16 at 22:04 ALMAZ SANTIAGO MD Oct 26, 2016 16:45
[2016-10-26 18:30] VITALS: BP 142/74; PULSE 82; RESP 20
[2016-10-26 20:43] VITALS: BP 145/74; RESP 20
[2016-10-26] MEDS: LITHIUM CARBONATE 300 MG PO SCH (20:55)
[2016-10-27 02:32] VITALS: BP 97/59; RESP 20
[2016-10-27] MEDS: morphine 2 MG INJ IV PRN ×5 (04:36→15:17)
[2016-10-27] MEDS: morphine (ER) 15 MG TAB PO SCH ×3 (06:00→20:59)
[2016-10-27 06:14] LABS: BASOPHILS % 0.3 % (0.0-2.0); EOSINOPHILS # 0.4 10^3/ul (0.0-0.5); EOSINOPHILS % 3.3 % (0.0-7.0); HEMOGLOBIN 10.3 g/dl (14.0-18.0); LYMPHOCYTES # 1.9 10^3/ul (0.8-2.9); LYMPHOCYTES % 16.5 % (15.0-51.0); MEAN CORPUSCULAR HEMOGLOBIN 31.5 pg (29.0-33.0); MEAN CORPUSCULAR HGB CONC 32.2 g/dl (32.0-37.0); MEAN CORPUSCULAR VOLUME 97.9 fl (82.0-101.0); MONOCYTE # 1.1 10^3/ul (0.3-0.9); MONOCYTES % 9.3 % (0.0-11.0); NEUTROPHILS % 70.1 % (39.0-77.0); PLATELET COUNT 248 10^3/UL (140-415); RED BLOOD COUNT 3.27 10^6/ul (4.70-6.10); RED CELL DISTRIBUTION WIDTH 16.4 % (11.5-14.5); WHITE BLOOD COUNT 11.8 10^3/ul (4.8-10.8)
[2016-10-27 06:38] LABS: ALBUMIN 4.1 g/dl (3.3-4.9); ALBUMIN/GLOBULIN RATIO 1.36; BILIRUBIN,INDIRECT 0.3 mg/dl (0-1.1); BILIRUBIN,TOTAL 0.3 mg/dl (0.2-1.3); CREATININE 1.18 mg/dl (0.61-1.24); TOTAL PROTEIN 7.1 g/dl (6.1-8.1)
--- NOTE | 2016-10-27 07:07 | PN ---
Date/Time of Note Date/Time of Note DATE: 10/27/16 TIME: 07:03 Assessment/Plan Lines/Catheters IV Catheter Type (from Nrs): Saline Lock Mahajan in Place (from Nrs): No Assessment/Plan Chief Complaint/Hosp Course This is a 71-year-old male well-known to me having undergone multilevel redo decompressive laminectomy from L1-L5 in June 2016 at [facility] [place]. He underwent an outpatient MRI of the lumbar spine at [facility] in [facility] in the last couple of days , which was reviewed by Dr. Lianne Prince, and felt to be compatible with a quotation patel massive infection". Please see his admission of June 2016 for details regarding his lumbar surgery. Problems: Subjective 24 Hr Interval Summary Patient is afebrile and resting comfortably. Cultures of psoas fluid collection and discitis aspirate are no growth thus far. Neurovascular structures are intact distally. I will speak with Dr. Reid and Dr. Beck regarding their management plans. Exam/Review of Systems Vital Signs Vitals Vital Signs Date Time Temp Pulse Resp B/P Pulse Ox O2 Delivery O2 Flow Rate FiO2 10/27/16 02:32 98.4 74 20 97/59 95 10/26/16 18:30 Room Air 10/25/16 16:25 2.0 Intake and Output 10/26/16 10/26/16 10/27/16 15:00 23:00 07:00 Intake Total 1920 ml Balance 1920 ml Results Result Diagram: 10/27/16 0600 10/27/16 0545 MARU DOE MD Oct 27, 2016 07:06
[2016-10-27 07:56] VITALS: BP 139/72; RESP 18
[2016-10-27] MEDS: LISINOPRIL 10 MG TAB PO SCH (08:29)
[2016-10-27] MEDS: FAMOTIDINE 20 MG TAB PO SCH (08:29)
[2016-10-27] MEDS: PREGABALIN 75 MG CAP PO SCH (08:30)
[2016-10-27] MEDS: ENOXAPARIN 40 MG/0.4 ML SYG SC SCH (09:00)
--- NOTE | 2016-10-27 13:40 | PN ---
Date/Time of Note Date/Time of Note DATE: 10/27/16 TIME: 13:37 Assessment/Plan VTE Prophylaxis VTE Prophylaxis Intervention: contraindicated Lines/Catheters [facility] Saline Lock Urinary Cath still in place: No Assessment/Plan Problems: (1) History of hepatitis C virus infection Status: Chronic Comment: The patient reportedly was previously treated with Harvoni. I am going to check a hepatitis C viral RNA to verify clearance (2) Essential hypertension Status: Chronic Comment: Adequate control on her current regimen (3) Bipolar affective disorder Status: Chronic Comment: He is relatively unchanged Qualifiers: Active/Remission status: currently active Current bipolar episode type: mixed Current episode severity: moderate Qualified Code: F31.62 - Bipolar disorder, current episode mixed, moderate (4) Discitis of lumbar region Status: Chronic Comment: As per infectious disease. Cultures negative today but they have not fully matured. (5) Pain Status: Acute Comment: He has chronic pain syndrome but he also has a history of dependency issues. I am going to start reducing the dosing on his narcotics specifically reducing the dosing of the IV morphine. Cut it in half and also stretch out the duration between shots today. Tomorrow go to discontinue completely. He will be on MS Contin at a low dose to hold him for a period projected of 3 weeks. The Percocet will be given in a tapering dose Subjective 24 Hr Interval Summary Free Text/Dictation Patient reports that he still has some pain but his pain is under fair control. Constitutional: no complaints (Denies fevers chills or sweats) Respiratory: no complaints Cardiovascular: no complaints Gastrointestinal: no complaints Genitourinary: no complaints Musculoskeletal: back pain Neurologic: confusion (Modest confusion) Exam/Review of Systems Vital Signs Vitals Vital Signs Date Time Temp Pulse Resp B/P Pulse Ox O2 Delivery O2 Flow Rate FiO2 10/27/16 07:56 98.1 65 18 139/72 94 10/26/16 18:30 Room Air 10/25/16 16:25 2.0 Intake and Output 10/26/16 10/26/16 10/27/16 15:00 23:00 07:00 Intake Total 1920 ml Balance 1920 ml Exam Constitutional: alert, oriented (He is demonstrating a modest degree of confusion which is clearly due to the opiate pain medications.) Neck: non-tender, supple Respiratory: clear to auscultation, normal air movement Results Result Diagram: 10/27/16 0600 10/27/16 0545 Results 24 hrs Laboratory Tests Test 10/27/16 05:45 10/27/16 06:00 Sodium Level 136 Potassium Level 4.0 Chloride Level 107 Carbon Dioxide Level 22 Anion Gap 11 Blood Urea Nitrogen 18 Creatinine 1.18 Glucose Level 110 Calcium Level 10.0 Total Bilirubin 0.3 Direct Bilirubin 0.00 Indirect Bilirubin 0.3 Aspartate Amino Transf (AST/SGOT) 24 Alanine Aminotransferase (ALT/SGPT) 40 Alkaline Phosphatase 93 Total Protein 7.1 Albumin 4.1 Globulin 3.00 Albumin/Globulin Ratio 1.36 White Blood Count 11.8 H Red Blood Count 3.27 L Hemoglobin 10.3 L Hematocrit 32.0 L Mean Corpuscular Volume 97.9 Mean Corpuscular Hemoglobin 31.5 Mean Corpuscular Hemoglobin Concent 32.2 Red Cell Distribution Width 16.4 H Platelet Count 248 Mean Platelet Volume 10.0 Neutrophils % 70.1 Lymphocytes % 16.5 Monocytes % 9.3 Eosinophils % 3.3 Basophils % 0.3 Nucleated Red Blood Cells % 0.0 Neutrophils # (Manual) 8.2 H Lymphocytes # 1.9 Monocytes # 1.1 H Eosinophils # 0.4 Basophils # 0.0 Nucleated Red Blood Cells # 0.0 Medications Medications Current Medications Docusate Sodium (Colace) 100 mg Q12H PRN PO CONSTIPATION; Start 10/21/16 at 17: 30 Bisacodyl (Dulcolax Supp) 10 mg DAILY PRN [place] CONSTIPATION; Start 10/21/16 at 17 :30 Sodium Biphosphate/ Sodium Phosphate (Fleet Enema) 133 ml DAILY PRN [place] CONSTIPATION; Start 10/21/16 at 17:30 Famotidine (Pepcid) 20 mg DAILY PO Last administered on 10/27/16 08:29; Admin Dose 20 MG; Start 10/21/16 at 21:00 Enoxaparin Sodium (Lovenox) 40 mg DAILY SC ; Start 10/21/16 at 17:30 Lisinopril (Zestril) 10 mg QAM PO Last administered on 10/27/16 08:29; Admin Dose 10 MG; Start 10/22/16 at 09:00 Pregabalin (Lyrica) 75 mg DAILY PO Last administered on 10/27/16 08:30; Admin Dose 75 MG; Start 10/22/16 at 09:30 Lorazepam (Ativan) 1 mg Q12 PRN PO ANXIETY Last administered on 10/23/16 00:40 ; Admin Dose 1 MG; Start 10/22/16 at 09:30 Zolpidem Tartrate (Ambien) 10 mg HS PRN PO INSOMNIA Last administered on 00:08; Admin Dose 10 MG; Start 10/23/16 at 23:30 Morphine Sulfate (morphine) 2 mg Q2H PRN IV PAIN Last administered on 13:17; Admin Dose 2 MG; Start 10/25/16 at 10:30 Oxycodone/Aspirin (Percodan) 1 tab Q6 PRN PO PAIN Last administered on 11:08; Admin Dose 1 TAB; Start 10/25/16 at 18:00 Morphine Sulfate (Ms Contin (Er)) 15 mg Q8 PO Last administered on 10/27/16 13 :17; Admin Dose 15 MG; Start 10/25/16 at 14:00 Ondansetron HCl (Zofran Inj) 4 mg Q4H PRN IV NAUSEA AND/OR VOMITING Last administered on 10/26/16 11:08; Admin Dose 4 MG; Start 10/25/16 at 22:00 Patient Own Medication 2 ea QHS PO Last administered on 10/26/16 20:55; Admin Dose 2 EA; Start 10/25/16 at 22:04 TARAN WAGN MD Oct 27, 2016 13:40
--- NOTE | 2016-10-27 13:56 | CONS ---
Date/Time of Note Date/Time of Note DATE: 10/27/16 TIME: 13:54 Assessment/Plan Assessment/Plan Chief Complaint/Hosp Course SUBJECTIVE DATA: No acute changes. The patient is alert, ambulating with cane , no fevers, nad ALLERGIES: PENICILLIN, SULFA, AND CIPRO. GENERAL: This is a well-developed, wasted elderly man who is alert, in no distress. HEENT: Head atraumatic, normocephalic. Sclerae anicteric. Buccal mucosa pink. NECK: Supple. CHEST: Rise symmetrical. Breath sounds clear. HEART: S1, S2. ABDOMEN: Soft. Bowel sounds present. EXTREMITIES: Without cyanosis or edema. ASSESSMENT: 1. Suspected discitis and osteomyelitis at L2-L3 level, s/ CT-guided aspiration 10/25/16, cx's and GS negative, procalcitonin <0.1 2. Status post multilevel redo decompressive laminectomy in June 2016. 3. History of bipolar disorder. 4. History of cervical spine osteomyelitis. 5. Hepatitis C virus. Status post Harvoni. PLAN: Remains stable, cx's negative, will keep of abx DW Dr Reid Problems: Consultation Date/Type/Reason Admit Date/Time Oct 21, 2016 at 16:52 Initial Consult Date 10/22/16 Type of Consultation: ID Referring Provider: TARAN WANG MD Exam/Review of Systems Vital Signs Vitals Vital Signs Date Time Temp Pulse Resp B/P Pulse Ox O2 Delivery O2 Flow Rate FiO2 10/27/16 07:56 98.1 65 18 139/72 94 10/26/16 18:30 Room Air 10/25/16 16:25 2.0 Intake and Output 10/26/16 10/26/16 10/27/16 15:00 23:00 07:00 Intake Total 1920 ml Balance 1920 ml Results Result Diagram: 10/27/16 0600 10/27/16 0545 Results 24 hrs Laboratory Tests Test 10/27/16 05:45 10/27/16 06:00 Sodium Level 136 Potassium Level 4.0 Chloride Level 107 Carbon Dioxide Level 22 Anion Gap 11 Blood Urea Nitrogen 18 Creatinine 1.18 Glucose Level 110 Calcium Level 10.0 Total Bilirubin 0.3 Direct Bilirubin 0.00 Indirect Bilirubin 0.3 Aspartate Amino Transf (AST/SGOT) 24 Alanine Aminotransferase (ALT/SGPT) 40 Alkaline Phosphatase 93 Total Protein 7.1 Albumin 4.1 Globulin 3.00 Albumin/Globulin Ratio 1.36 White Blood Count 11.8 H Red Blood Count 3.27 L Hemoglobin 10.3 L Hematocrit 32.0 L Mean Corpuscular Volume 97.9 Mean Corpuscular Hemoglobin 31.5 Mean Corpuscular Hemoglobin Concent 32.2 Red Cell Distribution Width 16.4 H Platelet Count 248 Mean Platelet Volume 10.0 Neutrophils % 70.1 Lymphocytes % 16.5 Monocytes % 9.3 Eosinophils % 3.3 Basophils % 0.3 Nucleated Red Blood Cells % 0.0 Neutrophils # (Manual) 8.2 H Lymphocytes # 1.9 Monocytes # 1.1 H Eosinophils # 0.4 Basophils # 0.0 Nucleated Red Blood Cells # 0.0 Medications Medications Current Medications Docusate Sodium (Colace) 100 mg Q12H PRN PO CONSTIPATION; Start 10/21/16 at 17: 30 Bisacodyl (Dulcolax Supp) 10 mg DAILY PRN [place] CONSTIPATION; Start 10/21/16 at 17 :30 Sodium Biphosphate/ Sodium Phosphate (Fleet Enema) 133 ml DAILY PRN [place] CONSTIPATION; Start 10/21/16 at 17:30 Famotidine (Pepcid) 20 mg DAILY PO Last administered on 10/27/16 08:29; Admin Dose 20 MG; Start 10/21/16 at 21:00 Enoxaparin Sodium (Lovenox) 40 mg DAILY SC ; Start 10/21/16 at 17:30 Lisinopril (Zestril) 10 mg QAM PO Last administered on 10/27/16 08:29; Admin Dose 10 MG; Start 10/22/16 at 09:00 Pregabalin (Lyrica) 75 mg DAILY PO Last administered on 10/27/16 08:30; Admin Dose 75 MG; Start 10/22/16 at 09:30 Lorazepam (Ativan) 1 mg Q12 PRN PO ANXIETY Last administered on 10/23/16 00:40 ; Admin Dose 1 MG; Start 10/22/16 at 09:30 Zolpidem Tartrate (Ambien) 10 mg HS PRN PO INSOMNIA Last administered on 00:08; Admin Dose 10 MG; Start 10/23/16 at 23:30 Oxycodone/Aspirin (Percodan) 1 tab Q6 PRN PO PAIN Last administered on 11:08; Admin Dose 1 TAB; Start 10/25/16 at 18:00 Ondansetron HCl (Zofran Inj) 4 mg Q4H PRN IV NAUSEA AND/OR VOMITING Last administered on 10/26/16 11:08; Admin Dose 4 MG; Start 10/25/16 at 22:00 Patient Own Medication 2 ea QHS PO Last administered on 10/26/16 20:55; Admin Dose 2 EA; Start 10/25/16 at 22:04 Morphine Sulfate (Ms Contin (Er)) 15 mg Q12 PO ; Start 10/27/16 at 21:00 Morphine Sulfate (morphine) 1 mg Q3 PRN IV PAIN; Start 10/27/16 at 15:00 EDITH MCCOY NP Oct 27, 2016 13:56
[2016-10-27 14:03] VITALS: BP 124/63; RESP 16
[2016-10-27] MEDS: LORAZEPAM 1 MG TAB PO PRN (15:17)
[2016-10-27 16:07] LABS: TB-NIL <0.00 IU/mL
[2016-10-27 18:54] LABS: CRYPTOCOCCAL ANTIGEN - SOURCE Serum
[2016-10-27 20:13] VITALS: BP 107/55; RESP 18
[2016-10-27] MEDS: LITHIUM CARBONATE 300 MG PO SCH (20:58)
[2016-10-28 02:17] VITALS: BP 137/69; RESP 16
[2016-10-28] MEDS: morphine 2 MG INJ IV PRN ×2 (05:42→10:02)
--- NOTE | 2016-10-28 07:12 | PN ---
Date/Time of Note Date/Time of Note DATE: 10/28/16 TIME: 07:08 Assessment/Plan Lines/Catheters IV Catheter Type (from Nrsg): Saline Lock Mahajan in Place (from Nrsg): No Assessment/Plan Chief Complaint/Hosp Course This is a 71-year-old male well-known to me having undergone multilevel redo decompressive laminectomy from L1-L5 in June 2016 at [facility]. He underwent an outpatient MRI of the lumbar spine at [facility] in [facility] in the last couple of days , which was reviewed by Dr. Lianne Prince, and felt to be compatible with a quotation patel massive infection". Please see his admission of June 2016 for details regarding his lumbar surgery. Problems: Subjective 24 Hr Interval Summary The patient is resting comfortably [address]-guided biopsy of his right psoas fluid collection and L2-3 disc space. Preliminary report from microbiology is no growth at 48 hours. Neurovascular structures were intact distally. At this point, I do not plan any orthopedic intervention, and he can be discharged home from my perspective. Follow-up arrangements have been discussed. Exam/Review of Systems Vital Signs Vitals Vital Signs Date Time Temp Pulse Resp B/P Pulse Ox O2 Delivery O2 Flow Rate FiO2 10/28/16 02:17 98.4 71 16 137/69 98 10/26/16 18:30 Room Air 10/25/16 16:25 2.0 Intake and Output 10/27/16 10/27/16 10/28/16 15:00 23:00 07:00 Intake Total 920 ml 1680 ml Balance 920 ml 1680 ml Results Result Diagram: 10/27/16 0600 10/27/16 0545 MARU DOE MD Oct 28, 2016 07:12
[2016-10-28 07:29] VITALS: BP 131/75; RESP 16
--- NOTE | 2016-10-28 08:54 | PN ---
Date/Time of Note Date/Time of Note DATE: 10/28/16 TIME: 08:51 Assessment/Plan VTE Prophylaxis VTE Prophylaxis Intervention: ambulation Lines/Catheters IV Catheter Type (from Nrsg): Saline Lock Urinary Cath still in place: No Subjective 24 Hr Interval Summary Free Text/Dictation discharge home today, can continue with usual meds and p.t. will deliver norco rx and pain mgmt m.d. referral alert fluent lungs clear, hr ok ext ok, non focal neuro exam, gait ok with bent spine d.c. home Exam/Review of Systems Vital Signs Vitals Vital Signs Date Time Temp Pulse Resp B/P Pulse Ox O2 Delivery O2 Flow Rate FiO2 10/28/16 07:29 98.8 66 16 131/75 94 10/26/16 18:30 Room Air 10/25/16 16:25 2.0 Intake and Output 10/27/16 10/27/16 10/28/16 15:00 23:00 07:00 Intake Total 920 ml 1680 ml 400 ml Balance 920 ml 1680 ml 400 ml Results Result Diagram: 10/27/16 0600 10/27/16 0545 Medications Medications Current Medications Docusate Sodium (Colace) 100 mg Q12H PRN PO CONSTIPATION; Start 10/21/16 at 17: 30 Bisacodyl (Dulcolax Supp) 10 mg DAILY PRN [place] CONSTIPATION; Start 10/21/16 at 17 :30 Sodium Biphosphate/ Sodium Phosphate (Fleet Enema) 133 ml DAILY PRN [place] CONSTIPATION; Start 10/21/16 at 17:30 Famotidine (Pepcid) 20 mg DAILY PO Last administered on 10/27/16 08:29; Admin Dose 20 MG; Start 10/21/16 at 21:00 Enoxaparin Sodium (Lovenox) 40 mg DAILY SC ; Start 10/21/16 at 17:30 Lisinopril (Zestril) 10 mg QAM PO Last administered on 10/27/16 08:29; Admin Dose 10 MG; Start 10/22/16 at 09:00 Pregabalin (Lyrica) 75 mg DAILY PO Last administered on 10/27/16 08:30; Admin Dose 75 MG; Start 10/22/16 at 09:30 Lorazepam (Ativan) 1 mg Q12 PRN PO ANXIETY Last administered on 10/27/16 15:17 ; Admin Dose 1 MG; Start 10/22/16 at 09:30 Zolpidem Tartrate (Ambien) 10 mg HS PRN PO INSOMNIA Last administered on 00:08; Admin Dose 10 MG; Start 10/23/16 at 23:30 Oxycodone/Aspirin (Percodan) 1 tab Q6 PRN PO PAIN Last administered on 11:08; Admin Dose 1 TAB; Start 10/25/16 at 18:00 Ondansetron HCl (Zofran Inj) 4 mg Q4H PRN IV NAUSEA AND/OR VOMITING Last administered on 10/26/16 11:08; Admin Dose 4 MG; Start 10/25/16 at 22:00 Patient Own Medication 2 ea QHS PO Last administered on 10/27/16 20:58; Admin Dose 2 EA; Start 10/25/16 at 22:04 Morphine Sulfate (Ms Contin (Er)) 15 mg Q12 PO Last administered on 10/27/16 20:59; Admin Dose 15 MG; Start 10/27/16 at 21:00 Morphine Sulfate (morphine) 1 mg Q3 PRN IV PAIN Last administered on 10/28/16 05:42; Admin Dose 1 MG; Start 10/27/16 at 15:00 ALMAZ SANTIAGO MD Oct 28, 2016 08:53
[2016-10-28] MEDS: ENOXAPARIN 40 MG/0.4 ML SYG SC SCH (09:00)
[2016-10-28] MEDS: morphine (ER) 15 MG TAB PO SCH (09:00)
[2016-10-28] MEDS: PREGABALIN 75 MG CAP PO SCH (09:00)
[2016-10-28] MEDS: LISINOPRIL 10 MG TAB PO SCH (09:53)
[2016-10-28] MEDS: FAMOTIDINE 20 MG TAB PO SCH (09:53)
[2016-10-28 09:54] VITALS: BP 131/81; PULSE 72
--- NOTE | 2016-10-28 11:15 | CONS ---
Date/Time of Note Date/Time of Note DATE: 10/28/16 TIME: 11:14 Assessment/Plan Assessment/Plan Chief Complaint/Hosp Course SUBJECTIVE DATA: No acute changes. The patient is alert, no fevers, nad ALLERGIES: PENICILLIN, SULFA, AND CIPRO. GENERAL: This is a well-developed, wasted elderly man who is alert, in no distress. HEENT: Head atraumatic, normocephalic. Sclerae anicteric. Buccal mucosa pink. NECK: Supple. CHEST: Rise symmetrical. Breath sounds clear. HEART: S1, S2. ABDOMEN: Soft. Bowel sounds present. EXTREMITIES: Without cyanosis or edema. ASSESSMENT: 1. Suspected discitis and osteomyelitis at L2-L3 level, s/ CT-guided aspiration 10/25/16, cx's and GS negative, procalcitonin <0.1 2. Status post multilevel redo decompressive laminectomy in June 2016. 3. History of bipolar disorder. 4. History of cervical spine osteomyelitis. 5. Hepatitis C virus. Status post Harvoni. PLAN: Remains stable, cx's negative, ok dc off abx, f/u with ortho, will see in the office prn DW Dr Reid Problems: Consultation Date/Type/Reason Admit Date/Time Oct 21, 2016 at 16:52 Initial Consult Date 10/22/16 Type of Consultation: ID Referring Provider: TARAN WANG MD Exam/Review of Systems Vital Signs Vitals Vital Signs Date Time Temp Pulse Resp B/P Pulse Ox O2 Delivery O2 Flow Rate FiO2 10/28/16 09:54 72 131/81 10/28/16 07:29 98.8 16 94 10/26/16 18:30 Room Air 10/25/16 16:25 2.0 Intake and Output 10/27/16 10/27/16 10/28/16 15:00 23:00 07:00 Intake Total 920 ml 1680 ml 400 ml Balance 920 ml 1680 ml 400 ml Results Result Diagram: 10/27/16 0600 10/27/16 0545 Medications Medications Current Medications Docusate Sodium (Colace) 100 mg Q12H PRN PO CONSTIPATION; Start 10/21/16 at 17: 30 Bisacodyl (Dulcolax Supp) 10 mg DAILY PRN [place] CONSTIPATION; Start 10/21/16 at 17 :30 Sodium Biphosphate/ Sodium Phosphate (Fleet Enema) 133 ml DAILY PRN [place] CONSTIPATION; Start 10/21/16 at 17:30 Famotidine (Pepcid) 20 mg DAILY PO Last administered on 10/28/16 09:53; Admin Dose 20 MG; Start 10/21/16 at 21:00 Enoxaparin Sodium (Lovenox) 40 mg DAILY SC ; Start 10/21/16 at 17:30 Lisinopril (Zestril) 10 mg QAM PO Last administered on 10/28/16 09:53; Admin Dose 10 MG; Start 10/22/16 at 09:00 Pregabalin (Lyrica) 75 mg DAILY PO Last administered on 10/27/16 08:30; Admin Dose 75 MG; Start 10/22/16 at 09:30 Lorazepam (Ativan) 1 mg Q12 PRN PO ANXIETY Last administered on 10/27/16 15:17 ; Admin Dose 1 MG; Start 10/22/16 at 09:30 Zolpidem Tartrate (Ambien) 10 mg HS PRN PO INSOMNIA Last administered on 00:08; Admin Dose 10 MG; Start 10/23/16 at 23:30 Oxycodone/Aspirin (Percodan) 1 tab Q6 PRN PO PAIN Last administered on 11:08; Admin Dose 1 TAB; Start 10/25/16 at 18:00 Ondansetron HCl (Zofran Inj) 4 mg Q4H PRN IV NAUSEA AND/OR VOMITING Last administered on 10/26/16 11:08; Admin Dose 4 MG; Start 10/25/16 at 22:00 Patient Own Medication 2 ea QHS PO Last administered on 10/27/16 20:58; Admin Dose 2 EA; Start 10/25/16 at 22:04 Morphine Sulfate (Ms Contin (Er)) 15 mg Q12 PO Last administered on 10/27/16 20:59; Admin Dose 15 MG; Start 10/27/16 at 21:00 Morphine Sulfate (morphine) 1 mg Q3 PRN IV PAIN Last administered on 10/28/16 10:02; Admin Dose 1 MG; Start 10/27/16 at 15:00 EDITH MCCOY NP Oct 28, 2016 11:15
--- NOTE | 2016-10-28 12:04 | PDOCDIS ---
Discharge Instructions CONDITION Patient Condition: Fair HOME CARE INSTRUCTIONS: Diet Instructions: RegularSpecial Diet: carb cont ACTIVITY: Activity Restrictions: No Restrictions Slowly Increase Activity Bathing Restrictions: Shower FOLLOW UP/APPOINTMENTS Follow-up Plan follow up with pain management md to get further pain meds follow up with dr joel wiggins can resume p.t. ROUFF, STEVEN L MD Oct 28, 2016 12:04
[2016-10-28] MEDS: OXYCODONE/ASPIRIN (4.88/325) TAB PO PRN (13:07)
--- NOTE | 2016-10-28 14:18 | DS ---
DATE OF ADMISSION: 10/21/2016 DATE OF DISCHARGE: 10/28/2016 CHIEF COMPLAINT: Persistent back pain and abnormal MRI. FINAL DIAGNOSES: 1. Lumbar disc disease with kyphosis and scoliosis. 2. Manic depressive illness. 3. Anxiety disorder. HOSPITAL COURSE: Mr. Dave is admitted to the hospital because of concern about paraspinal infectious process in his back. He had a lumbar spine revision surgery in June and has really no problems since then except for some pain. Repeat MRI on October 20 did show some abnormalities. Otherwise, the patient has a problem with some mood and behavioral disorders. He is taking medication. He also has some pain management issues. At any rate, a full workup in the hospital does not reveal any evidence for infection. Biopsies with aspirations have shown no growth to this point. His laboratory evaluation for tuberculosis is negative. DISCHARGE MEDICATIONS: Discharged home on her usual medications. He is given a small number of [place] 3/525. FOLLOWUP: His follow-up with pain management physician. [facility] which he continued to consult. He can follow up with Dr. Rader as well and ee us if further problems arise. DISCHARGE CONDITION: At the time of discharge the patient is ambulatory and alert, able to walk but has some kyphotic deformity of his spine. Dictated By: Joseph Beck MD /[email or web address] /Document#: [id number]
== END 2016-10-28 13:35 | disposition home or self-care (01) | DRG 552 ==
LOC: E/R 16:09 → MS2 16:52
PROVIDERS: ADMIT Internal Medicine; ATTEND Internal Medicine
PROC: 009U3ZZ Drainage of Spinal Canal, Percutaneous Approach (ICD-10-PCS; principal; 2016-10-25)
PROC: 0S993ZZ Drainage of Right Hip Joint, Percutaneous Approach (ICD-10-PCS; 2016-10-25)
DX: M51.26 Other intervertebral disc displacement, lumbar region (principal); M41.9 Scoliosis, unspecified; I10 Essential (primary) hypertension; F31.9 Bipolar disorder, unspecified; Z87.891 Personal history of nicotine dependence; N40.0 Benign prostatic hyperplasia without lower urinary tract symptoms; Z88.1 Allergy status to other antibiotic agents; Z88.0 Allergy status to penicillin; Z88.2 Allergy status to sulfonamides; Z98.890 Other specified postprocedural states; M40.209 Unspecified kyphosis, site unspecified; F41.9 Anxiety disorder, unspecified; F12.21 Cannabis dependence, in remission; B18.2 Chronic viral hepatitis C; G89.4 Chronic pain syndrome
CPT/HCPCS: 36415; 71010; 72149; 77012; 80048; 80053; 81003; 83605; 84145; 84484; 85025; 85610; 85651; 85730; 86140; 86403; 86480; 86635; 86641; 86803; 87040; 87070; 87075; 87086; 87102; 87116; 93005; 96365; 96366; 96368; 96375; 97162; 97166; J1170; J1650; J2250; J2270; J2405; J3010; J3370; J7030